=== PATIENT | male | born 1955 | race Caucasian/White ===

== ENCOUNTER → 2018-08-06 18:07 | Outpatient (CLI) | payer MEDICARE, SELFPAY | PROVIDERS: Family Provider Nurse Practitioner; PCP Nurse Practitioner; Referring Provider Nurse Practitioner; Visit Provider Nurse Practitioner | DX: N39.0 Urinary tract infection, site not specified (principal) | CPT/HCPCS: 87077; 87086; 87088; 87186 ==

== ENCOUNTER → 2018-08-25 14:36 | Outpatient (CLI) | payer MEDICARE, SELFPAY ==
--- NOTE | 2018-08-25 14:40 | CT_ITS ---
STUDY: CT CERVICAL SPINE WITHOUT CONTRAST REASON FOR EXAM: Male, 63 years old. Neck pain. RADIATION DOSAGE (If Supplied By Facility): CTDIvol = ( 33.67 ) mGy, DLP = ( 854.02 ) mGycm TECHNIQUE: High resolution transaxial imaging was performed without contrast material. Sagittal and coronal images were reconstructed. Individualized dose optimization techniques were used for this CT. COMPARISON: None FINDINGS: No definite acute fracture/dislocation. The cervical junction is intact. C1-C2 articulation is intact. There is reversal of curvature. There is normal alignment. Facet joints are intact at all levels bilaterally. No jumped facets. Multilevel degenerative disc disease seen. Multilevel loss of disc height. Multilevel posterior marginal osteophytes and disc bulges. Multilevel neural foraminal narrowing. Multilevel compromise of the spinal canal. Findings most pronounced at C4-C5 and C5-C6 and C6-C7. Visualized paraspinal soft tissues and structures are unremarkable. CT/Spine Cervical without Contras IMPRESSION: There is no definite acute fracture/dislocation. Degenerative changes. Electronically Signed: Benitez Dominguez MD at 16:33 EST , Service support ,
== END ==
PROVIDERS: Family Provider Nurse Practitioner; PCP Nurse Practitioner; Referring Provider Anesthesiology Pain Medicine; Visit Provider Anesthesiology Pain Medicine
DX: M54.2 Cervicalgia (principal); M79.601 Pain in right arm
CPT/HCPCS: 72125

== ENCOUNTER → 2018-12-02 09:31 | Outpatient (CLI) | payer MEDICARE, SELFPAY ==
[2018-12-02 09:21] VITALS: BMI 41.2
--- NOTE | 2018-12-02 09:33 | RAD_ITS ---
STUDY: X-RAY - CERVICAL SPINE REASON FOR EXAM: Male, 63 years old. Chronic neck and arm pain. TECHNIQUE: 4 view(s) of the cervical spine were obtained. COMPARISON: CT cervical spine August 25, 2018. FINDINGS: Normal anterior atlantoaxial articulation. Normal odontoid process. Minimal retrolisthesis C4 on C5. No significant motion in flexion or extension. Normal vertebral bodies. Disc space narrowing C4-C5, C5-C6 and C6/C7. Minimal marginal osteophytes at several levels. Normal visualized intervertebral neuroforamina. The soft tissue structures are unremarkable. RAD/Cerv Spine 4 or 5 Views IMPRESSION: Multilevel degenerative changes of the cervical spine stable since the prior exam. No significant motion in flexion or extension. Electronically Signed: Silverio Soriano MD at 7:26 EST , Service support ,
== END ==
PROVIDERS: Family Provider Nurse Practitioner; PCP Nurse Practitioner; Referring Provider Orthopaedic Surgery; Visit Provider Orthopaedic Surgery
DX: M54.12 Radiculopathy, cervical region (principal)
CPT/HCPCS: 72050

== ENCOUNTER → 2018-12-18 21:42 | Outpatient (CLI) | payer MEDICARE, SELFPAY ==
[2018-12-18 17:11] VITALS: BMI 40.3
[2018-12-18 21:49] LABS: Absolute Lymphocyte Count 2.93 X10^3/ul (0.83-4.51); Absolute Neutrophil Count 6.8 X10^3/uL (2.0-7.7); Basophil# 0.03 X10^3/uL; Basophil% 0.3 % (0-1); Eosinophil# 0.47 X10^3/uL; Eosinophils% 4.3 % (0-5); Hemoglobin 14.4 g/dl (13.0-16.5); Lymphocyte # 2.93 X10^3/ul (4.0); Lymphocyte % 26.8 % (19-41); Mean Corpuscular Hgb 30.4 pg (27.0-32.0); Mean Corpuscular Volume 94.9 fL (80-94); Mean Platelet Vol. 12.4 fl (6.2-12.0); Monocyte% 6.4 % (0-10); Neutrophil # 6.75 X10^3/uL (2.7-7.7); Neutrophil % 61.8 % (47-70); Platelet Count 165 K/mm3 (150-450); RBC Distribution Width CV 13.5 % (11.6-14.6); RBC Distribution Width SD 46.7 fl (35.1-43.9); Red Blood Count 4.74 M/mm3 (4.6-6.2); White Blood Count 10.9 K/mm3 (4.4-11.0)
[2018-12-18 21:50] LABS: POSITIVE COUNT NO; POSITIVE DIFFERENTIAL NO; POSITIVE MORPHOLOGY NO
[2018-12-18 22:09] LABS: ALB/GLOB Ratio 1.2 RATIO (0.9-2.4); AST(SGOT) 32 U/L (15-37); Alanine Aminotransfer ALT/SGPT 63 U/L (16-61); Alkaline Phosphatase 51 U/L (45-117); Anion Gap 5 (5-15); BUN 24 mg/dL (7-18); BUN/Creat Ratio 22.4 RATIO (10-20); Calcium,Total 8.8 mg/dL (8.5-10.1); Chloride 104 mmol/L (98-107); Cholesterol 120 mg/dL (200); Creatinine, Serum 1.07 mg/dL (0.70-1.30); EST Glomerular Filtration Rate 74 mL/min (>60); Est Glom Filt Rate - Afr Amer 89 mL/min (>60); Globulin 3.4 g/dL (2.2-4.2); Glucose 81 mg/dL (74-106); High Density Lipoprotein 37 mg/dL; PSA,Total - Annual Screen 1.37 ng/mL (0.00-4.00); Potassium 4.4 mmol/L (3.5-5.1); Protein, Total 7.4 g/dL (6.4-8.2); Sodium Level 137 mmol/L (136-145); Thyroid Stim Hormone (TSH) 2.62 uIU/mL (0.358-3.74); Triglycerides 91 mg/dL; Very Low Density Lipoprotein 18 mg/dL (5-40)
== END ==
PROVIDERS: Referring Provider Nurse Practitioner; Visit Provider Nurse Practitioner
DX: E03.9 Hypothyroidism, unspecified (principal); R33.9 Retention of urine, unspecified; E78.5 Hyperlipidemia, unspecified; I10 Essential (primary) hypertension; H66.93 Otitis media, unspecified, bilateral
CPT/HCPCS: 80053; 80061; 84153; 84443; 85025; G0103

== ENCOUNTER → 2018-12-19 10:52 | Outpatient (CLI) | payer MEDICARE, SELFPAY ==
[2018-12-02 09:21] VITALS: BMI 41.2
[2018-12-18 17:11] VITALS: BMI 40.3
== END ==
PROVIDERS: Family Provider Nurse Practitioner; PCP Nurse Practitioner; Referring Provider Orthopaedic Surgery; Visit Provider Orthopaedic Surgery
DX: M54.12 Radiculopathy, cervical region (principal)

== ENCOUNTER → 2018-12-26 11:14 | Outpatient (CLI) | payer MEDICARE, SELFPAY ==
[2018-12-18 17:11] VITALS: BMI 40.3
[2018-12-26 11:28] VITALS: PULSE 64; RESP 16; TEMP 37.1; O2SAT 95; BMI 36.3
--- NOTE | 2018-12-26 11:45 | RAD_ITS ---
PROCEDURE: LUMBAR MYELOGRAM DATE OF EXAMINATION: December 26, 2018. INDICATION: Male, 63 years old. Cervical radiculopathy. PHYSICIAN: Bryant Fisher M.D. CONSENT: The patient's history and physical findings were reviewed. The lumbar myelogram procedure was discussed with the patient prior to signing a consent. SEDATION: Local anesthesia with 3 mL of 1% lidocaine was used. FLUOROSCOPY TIME (if supplied): (5:32) minutes/seconds Injection Information: 15 cc of Isovue M300 Number of images obtained: 4 TECHNIQUE: Digital fluoroscopy was used to identify a safe approach for the lumbar myelogram. The back was prepped and draped in usual fashion. Local anesthesia was utilized. Under fluoroscopic guidance a 22-gauge spinal needle was inserted into the spinal canal at the L4-5 level. Clear spinal fluid was seen with a sample sent to the laboratory. 15 mL of Isovue 300 M was injected into the spinal canal. The patient was then positioned head down. Contrast was advanced to the region the cervical spine. The skeletal. RAD/Cervical Myelogram IMPRESSION: CT scan will follow. The patient tolerated the procedure well. Electronically Signed: Bryant Fisher, at 12:57 EST , Service support ,
--- NOTE | 2018-12-26 12:18 | CT_ITS ---
STUDY: CT CERVICAL SPINE WITH INTRATHECAL CONTRAST (CERVICAL CT MYELOGRAM) REASON FOR EXAM: Male, 63 years old. Upper extremity radiculopathy. RADIATION DOSAGE (If Supplied By Facility): CTDIvol = ( 29.20 ) mGy, DLP = ( 698.27 ) mGycm TECHNIQUE: Transaxial images were obtained following intrathecal administration of 15 ml of Isovue-M 300 contrast material, performed by Dr. Fisher. Please refer to this physicians technical notes for procedural details. Coronal and sagittal reconstructions were obtained. Individualized dose optimization techniques were used for this CT. Injection Information: 15 cc of Isovue-M 300. COMPARISON: Comparison is made with prior examination dated August 25, 2018. FINDINGS: Normal craniovertebral junction. There are degenerative changes of the anterior atlantoaxial articulation. Normal odontoid process. There is straightening of the normal cervical lordosis. Normal vertebral bodies and posterior osseous elements. C2-3: Moderate degree of disc space narrowing. Anterior spondylosis. No significant stenosis is seen. C3-4: Moderate degree of disc space narrowing. Uncovertebral arthrosis. Facet joint osteoarthritis. No significant central or neural foraminal stenosis is seen. C4-5: Moderate degree of disc space narrowing. Uncovertebral arthrosis. There is evidence of a moderate degree of bilateral neural foraminal stenosis worse on the left side with moderate central canal stenosis worse on the left side. C5-6: Minimal anterior listhesis of C5 on C6. Moderate degree of bilateral neural foraminal stenosis moderate degree of central canal stenosis. C6-7: Moderate degree of disc space narrowing. Uncovertebral arthrosis. Moderate degree of bilateral neural foraminal stenosis. Mild degree of central canal stenosis. CT/Spine Cervical without Contras IMPRESSION: Multilevel central and bilateral neural foraminal stenosis as described. Electronically Signed: Bryant Fisher, at 9:25 EDT , Service support ,
[2018-12-26 13:37] VITALS: BP 125/68; PULSE 68; RESP 16; O2SAT 96
== END ==
PROVIDERS: Family Provider Nurse Practitioner; PCP Nurse Practitioner; Referring Provider Orthopaedic Surgery; Visit Provider Orthopaedic Surgery
DX: M54.12 Radiculopathy, cervical region (principal)
CPT/HCPCS: 62302; 62284; 72125; 72240; Q9965

== ENCOUNTER → 2019-04-01 | Outpatient (CLI) | payer MEDICARE, SELFPAY ==
[2019-04-01 17:04] VITALS: BMI 37.6
== END | disposition home or self-care (01) ==
PROVIDERS: Family Provider Nurse Practitioner; PCP Nurse Practitioner; Referring Provider Nurse Practitioner; Visit Provider Nurse Practitioner
DX: N30.01 Acute cystitis with hematuria (principal)
CPT/HCPCS: 87077; 87086; 87088; 87186

== ENCOUNTER → 2019-07-23 23:31 | Outpatient (CLI) | payer MEDICARE, SELFPAY ==
[2019-07-23 15:34] VITALS: BMI 37.6
== END ==
PROVIDERS: Family Provider Nurse Practitioner; PCP Nurse Practitioner; Referring Provider Nurse Practitioner; Visit Provider Nurse Practitioner
DX: N39.0 Urinary tract infection, site not specified (principal)
CPT/HCPCS: 87077; 87086; 87088; 87186

== ENCOUNTER → 2019-12-16 | Outpatient (CLI) | payer MEDICARE, SELFPAY ==
[2019-12-16 14:57] VITALS: BMI 37.8
[2019-12-16 22:29] LABS: Absolute Lymphocyte Count 1.85 X10^3/uL (0.83-4.51); Absolute Neutrophil Count 5.1 X10^3/uL (2.0-7.7); Basophil# 0.06 X10^3/uL; Basophil% 0.7 % (0-1); Eosinophil# 0.41 X10^3/uL; Eosinophils% 4.9 % (0-5); Hematocrit 44.9 % (40-54); Hemoglobin 14.8 g/dL (13.0-16.5); Lymphocyte # 1.85 X10^3/ul (4.0); Lymphocyte % 22.1 % (19-41); Mean Corpuscular Volume 93.9 fL (80-94); Mean Platelet Vol. 12.6 fl (6.2-12.0); Monocyte# 0.94 X10^3/uL; Monocyte% 11.2 % (0-10); NRBC Flagged by Analyzer 0 % (0-5); Neutrophil # 5.06 X10^3/uL (2.7-7.7); Neutrophil % 60.6 % (47-70); Platelet Count 144 K/mm3 (150-450); RBC Distribution Width CV 12.9 % (11.6-14.6); RBC Distribution Width SD 44.8 fl (35.1-43.9); Red Blood Count 4.78 M/mm3 (4.6-6.2); White Blood Count 8.4 K/mm3 (4.4-11.0)
[2019-12-16 22:42] LABS: AST(SGOT) 24 U/L (15-37); Alanine Aminotransfer ALT/SGPT 49 U/L (16-61); Albumin, Serum 3.8 g/dL (3.2-5.0); Alkaline Phosphatase 54 U/L (45-117); Anion Gap 5 (5-15); BUN 23 mg/dL (7-18); Calcium,Total 9.3 mg/dL (8.5-10.1); Chloride 106 mmol/L (98-107); Cholesterol 139 mg/dL (200); Creatinine, Serum 1.28 mg/dL (0.70-1.30); EST Glomerular Filtration Rate 60 mL/min (>60); Est Glom Filt Rate - Afr Amer 72 mL/min (>60); Globulin 3.7 g/dL (2.2-4.2); Glucose 98 mg/dL (74-106); High Density Lipoprotein 33 mg/dL; PSA,Total - Annual Screen 1.09 ng/mL (0.00-4.00); Potassium 4.2 mmol/L (3.5-5.1); Protein, Total 7.5 g/dL (6.4-8.2); Sodium Level 138 mmol/L (136-145); Thyroid Stim Hormone (TSH) 3.84 uIU/mL (0.358-3.74); Triglycerides 150 mg/dL; Very Low Density Lipoprotein 30 mg/dL (5-40)
== END | disposition home or self-care (01) ==
PROVIDERS: PCP Nurse Practitioner; Referring Provider Nurse Practitioner; Visit Provider Nurse Practitioner
DX: I10 Essential (primary) hypertension (principal); R33.9 Retention of urine, unspecified; E03.9 Hypothyroidism, unspecified; E78.5 Hyperlipidemia, unspecified; Z12.5 Encounter for screening for malignant neoplasm of prostate
CPT/HCPCS: 80053; 80061; 84153; 84443; 85025; G0103

== ENCOUNTER → 2020-02-22 | Outpatient (CLI) | payer MEDICARE, SELFPAY ==
[2020-02-22 16:38] VITALS: BMI 37.8
[2020-02-22 23:02] LABS: Thyroid Stim Hormone (TSH) 3.46 uIU/mL (0.358-3.74)
== END | disposition home or self-care (01) ==
LOC: OLS.AHF 22:12 → LABSPEC 02-23 11:23
PROVIDERS: PCP Nurse Practitioner; Referring Provider Nurse Practitioner; Visit Provider Nurse Practitioner
DX: E03.9 Hypothyroidism, unspecified (principal)
CPT/HCPCS: 84443

== ENCOUNTER → 2020-04-14 | Outpatient (CLI) | payer MEDICARE, SELFPAY ==
[2020-04-14 15:34] VITALS: BMI 37.8
[2020-04-14 20:48] LABS: Thyroid Stim Hormone (TSH) 0.22 uIU/mL (0.358-3.74)
== END | disposition home or self-care (01) ==
PROVIDERS: PCP Nurse Practitioner; Referring Provider Nurse Practitioner; Visit Provider Nurse Practitioner
DX: E03.9 Hypothyroidism, unspecified (principal)
CPT/HCPCS: 84443

== ENCOUNTER → 2020-05-17 | Outpatient (CLI) | payer MEDICARE, SELFPAY ==
[2020-04-14 15:34] VITALS: BMI 37.8
[2020-05-17 22:02] LABS: Thyroid Stim Hormone (TSH) 1.13 uIU/mL (0.358-3.74)
== END | disposition home or self-care (01) ==
PROVIDERS: PCP Nurse Practitioner; Referring Provider Nurse Practitioner; Visit Provider Nurse Practitioner
DX: E03.9 Hypothyroidism, unspecified (principal)
CPT/HCPCS: 84443

== ENCOUNTER → 2020-12-20 | Outpatient (CLI) | payer MEDICARE, SELFPAY ==
[2020-12-20 15:45] VITALS: BMI 38.2
[2020-12-20 21:49] LABS: Absolute Lymphocyte Count 2.22 X10^3/uL (0.83-4.51); Absolute Neutrophil Count 4.9 X10^3/uL (2.0-7.7); Basophil# 0.07 X10^3/uL; Basophil% 0.8 % (0-1); Eosinophil# 0.62 X10^3/uL; Eosinophils% 7.4 % (0-5); Hemoglobin 14.6 g/dL (13.0-16.5); Lymphocyte # 2.22 X10^3/ul (4.0); Lymphocyte % 26.4 % (19-41); Mean Corp Hgb Conc 31.7 g/dL (32-36); Mean Corpuscular Hgb 30.9 pg (27.0-32.0); Mean Corpuscular Volume 97.5 fL (80-94); Mean Platelet Vol. 12.6 fl (6.2-12.0); Monocyte% 7.1 % (0-10); NRBC Flagged by Analyzer 0 % (0-5); Neutrophil # 4.87 X10^3/uL (2.7-7.7); Neutrophil % 57.9 % (47-70); Platelet Count 158 K/mm3 (150-450); RBC Distribution Width CV 13.3 % (11.6-14.6); RBC Distribution Width SD 47.6 fl (35.1-43.9); Red Blood Count 4.72 M/mm3 (4.6-6.2); White Blood Count 8.4 K/mm3 (4.4-11.0)
[2020-12-20 22:03] LABS: ALB/GLOB Ratio 1.1 RATIO (0.9-2.4); AST(SGOT) 23 U/L (15-37); Alanine Aminotransfer ALT/SGPT 46 U/L (16-61); Alkaline Phosphatase 52 U/L (45-117); Anion Gap 4 (5-15); BUN 24 mg/dL (7-18); BUN/Creat Ratio 19.2 RATIO (10-20); Calcium,Total 8.8 mg/dL (8.5-10.1); Chloride 105 mmol/L (98-107); Cholesterol 150 mg/dL (200); Creatinine, Serum 1.25 mg/dL (0.70-1.30); EST Glomerular Filtration Rate 61 mL/min (>60); Est Glom Filt Rate - Afr Amer 74 mL/min (>60); Globulin 3.5 g/dL (2.2-4.2); Glucose 83 mg/dL (74-106); High Density Lipoprotein 35 mg/dL; PSA,Total - Annual Screen 1.44 ng/mL (0.00-4.00); Potassium 4.8 mmol/L (3.5-5.1); Protein, Total 7.5 g/dL (6.4-8.2); Sodium Level 138 mmol/L (136-145); Triglycerides 181 mg/dL; Very Low Density Lipoprotein 36 mg/dL (5-40)
== END | disposition home or self-care (01) ==
PROVIDERS: PCP Nurse Practitioner; Referring Provider Nurse Practitioner; Visit Provider Nurse Practitioner
DX: I10 Essential (primary) hypertension (principal); E03.9 Hypothyroidism, unspecified; R33.9 Retention of urine, unspecified; Z12.5 Encounter for screening for malignant neoplasm of prostate
CPT/HCPCS: 80053; 80061; 84153; 84443; 85025; G0103

== ENCOUNTER 2021-12-18 21:24 | Outpatient (CLI) | payer MEDICARE, SELFPAY ==
[2021-12-18 21:36] LABS: Absolute Lymphocyte Count 2.44 X10^3/uL (0.83-4.51); Absolute Neutrophil Count 5.6 X10^3/uL (2.0-7.7); Basophil# 0.07 X10^3/uL; Basophil% 0.7 % (0-1); Eosinophil# 0.58 X10^3/uL; Eosinophils% 6.2 % (0-5); Hematocrit 45.1 % (40-54); Hemoglobin 14.7 g/dL (13.0-16.5); Lymphocyte # 2.44 X10^3/ul (0.83-4.51); Mean Corp Hgb Conc 32.6 g/dL (32-36); Mean Corpuscular Hgb 31.3 pg (27.0-32.0); Mean Corpuscular Volume 96.2 fL (80-94); Mean Platelet Vol. 12.7 fl (6.2-12.0); Monocyte# 0.67 X10^3/uL; Monocyte% 7.2 % (0-10); NRBC Flagged by Analyzer 0 % (0-5); Neutrophil # 5.58 X10^3/uL (2.7-7.7); Neutrophil % 59.6 % (47-70); Platelet Count 156 K/mm3 (150-450); RBC Distribution Width CV 13.2 % (11.6-14.6); RBC Distribution Width SD 46.7 fl (35.1-43.9); Red Blood Count 4.69 M/mm3 (4.6-6.2); White Blood Count 9.4 K/mm3 (4.4-11.0)
[2021-12-18 22:10] LABS: ALB/GLOB Ratio 1.2 RATIO (0.9-2.4); AST(SGOT) 23 U/L (15-37); Alanine Aminotransfer ALT/SGPT 41 U/L (16-61); Alkaline Phosphatase 50 U/L (45-117); Anion Gap -1 (5-15); BUN 24 mg/dL (7-18); BUN/Creat Ratio 19.8 RATIO (10-20); Calcium,Total 9.3 mg/dL (8.5-10.1); Chloride 107 mmol/L (98-107); Cholesterol 145 mg/dL (200); Creatinine, Serum 1.21 mg/dL (0.70-1.30); EST Glomerular Filtration Rate 64 mL/min (>60); Est Glom Filt Rate - Afr Amer 77 mL/min (>60); Globulin 3.4 g/dL (2.2-4.2); Glucose 90 mg/dL (74-106); High Density Lipoprotein 38 mg/dL; Potassium 4.8 mmol/L (3.5-5.1); Protein, Total 7.4 g/dL (6.4-8.2); Sodium Level 138 mmol/L (136-145); Thyroid Stim Hormone (TSH) 3.58 uIU/mL (0.358-3.74); Triglycerides 139 mg/dL; Very Low Density Lipoprotein 28 mg/dL (5-40)
[2021-12-19 09:53] LABS: PSA,Total - Annual Screen 1.54 ng/mL (0.00-4.00)
== END 2021-12-18 23:59 | disposition home or self-care (01) ==
PROVIDERS: PCP Nurse Practitioner; Visit Provider Nurse Practitioner
DX: I10 Essential (primary) hypertension (principal); E03.9 Hypothyroidism, unspecified; R33.9 Retention of urine, unspecified; Z12.5 Encounter for screening for malignant neoplasm of prostate
CPT/HCPCS: 80053; 80061; 84153; 84443; 85025; 87077; 87086; 87088; 87186; G0103

== ENCOUNTER 2022-01-11 14:17 | Outpatient (CLI) | payer MEDICARE, SELFPAY ==
--- NOTE | 2022-01-11 14:20 | CT_ITS ---
COMPUTED TOMOGRAPHY OF THE RIGHT LOWER EXTREMITY WITH COMPARISON LEFT-SIDED VIEWS OF 1454 HOURS ON 01/11/2022: CLINICAL: 66-year-old male. Contemplation of the total hip arthroplasty. PROCEDURE: Computed tomography of both lower extremities was performed without contrast enhancement and was demonstrated in osseous algorithm in the axial, coronal, and sagittal projections. FINDINGS: Mild demineralization is noted. There is no evidence of fractures or dislocations. No osseous lytic, sclerotic, or mass lesions are evident. There is mild narrowing of both hip joint spaces--slightly more so on the right. The medial right hip joint space measures 0.35 cm in width and is compared to 0.465 cm on the left. Hip joint spaces have a relatively symmetrical with laterally. But, the posterior medial right hip joint space measures 0.2 cm in width compared to 0.64 cm on the left. No evidence of loose osseous bodies within the joint space. There are mild lateral osteophytic degenerative changes of both hip joints. CT/Extremity Lower without Contra IMPRESSION: 1. Mild narrowing of the right hip joint space is compared to the left--please see measurements in the body of the report. 2. Mild osteophytic degenerative changes of both hip joints. 3. No fractures or dislocations. 4. No osseous lytic, sclerotic or mass lesions evident. 5. Mild demineralization. Electronically Signed: Rodger Villalta MD at 0:34 EDT ,
== END 2022-01-11 23:59 | disposition home or self-care (01) ==
LOC: CT 14:18
PROVIDERS: PCP Nurse Practitioner; Referring Provider Orthopaedic Surgery; Visit Provider Orthopaedic Surgery
DX: M16.11 Unilateral primary osteoarthritis, right hip (principal)
CPT/HCPCS: 73700

== ENCOUNTER 2022-01-30 05:15 | Day surgery (SDC) | payer MEDICARE, SELFPAY ==
--- NOTE | 2022-01-19 08:39 | EKG12_ITS ---
Test Reason : PRE OP Blood Pressure : / mmHG Vent. Rate : 065 BPM Atrial Rate : 065 BPM P-R Int : 150 ms QRS Dur : 108 ms QT Int : 398 ms P-R-T Axes : 011 055 080 degrees QTc Int : 413 ms Normal sinus rhythm Normal ECG Confirmed by CHARANJIT CAST, EKATERINA ([id number]), continuity editor ALVIN DELGADO ([id number]) on 01/19/2022 2:22:31 PM Referred By: Ryan Martinez Confirmed By:ADRIANNA DONOHUE MD
[2022-01-19 09:23] LABS: Absolute Lymphocyte Count 2.02 X10^3/uL (0.83-4.51); Absolute Neutrophil Count 4.6 X10^3/uL (2.0-7.7); Basophil# 0.06 X10^3/uL; Basophil% 0.8 % (0-1); Eosinophil# 0.52 X10^3/uL; Eosinophils% 6.7 % (0-5); Hematocrit 44.1 % (40-54); Hemoglobin 14.4 g/dL (13.0-16.5); Lymphocyte # 2.02 X10^3/ul (0.83-4.51); Mean Corp Hgb Conc 32.7 g/dL (32-36); Mean Corpuscular Hgb 30.8 pg (27.0-32.0); Mean Corpuscular Volume 94.2 fL (80-94); Mean Platelet Vol. 11.3 fl (6.2-12.0); Monocyte# 0.54 X10^3/uL; Monocyte% 6.9 % (0-10); NRBC Flagged by Analyzer 0 % (0-5); Neutrophil # 4.58 X10^3/uL (2.7-7.7); Platelet Count 171 K/mm3 (150-450); RBC Distribution Width CV 13.2 % (11.6-14.6); RBC Distribution Width SD 45.5 fl (35.1-43.9); Red Blood Count 4.68 M/mm3 (4.6-6.2); White Blood Count 7.8 K/mm3 (4.4-11.0)
[2022-01-19 09:53] LABS: Prothrombin Time (Protime)PT. 12.9 SECONDS (11.7-14.9)
[2022-01-19 09:54] LABS: Anion Gap 1 (5-15); BUN 21 mg/dL (7-18); Chloride 105 mmol/L (98-107); Creatinine, Serum 1.31 mg/dL (0.70-1.30); EST Glomerular Filtration Rate 58 mL/min (>60); Est Glom Filt Rate - Afr Amer 70 mL/min (>60); Glucose 107 mg/dL (74-106); Partial Thromboplast Time 33.1 Seconds (24.1-36.2); Potassium 4.8 mmol/L (3.5-5.1); Sodium Level 138 mmol/L (136-145)
[2022-01-19 14:53] LABS: Magnesium 2.2 mg/dL (1.6-2.6); Thyroid Stim Hormone (TSH) 5.13 uIU/mL (0.358-3.74)
[2022-01-26 13:31] LABS: Fructosamine 245 umol/L (0-285)
[2022-01-30] VITALS (12 sets, daily range): BP systolic 105–139; BP diastolic 58–74; PULSE 51–69; RESP 16; TEMP 35.9–36.7; O2SAT 97–100; BMI 36.3
[2022-01-30] MEDS: Scopolamine 1mg/72hr Patch 1 PATCH TD (06:07)
[2022-01-30] MEDS: Lactated Ringers 1,000 ML 999 ML IV (06:07)
[2022-01-30] MEDS: Gabapentin 600 MG Tablet PO (06:08)
[2022-01-30] MEDS: Acetaminophen 500 MG Tablet 1000 MG PO (06:08)
[2022-01-30 07:05] LABS: Bedside Glucose 177 mg/dL (74-106)
--- NOTE | 2022-01-30 07:16 | HP.PCM_ITS ---
History and Physical Date of Admission: 01/30/22 Date of Service: 01/03/22 MR#:[id number]:[id number]: MIGUEL ANGEL BLANDRep #:[id number] Provider:Dr. Ryan Martinez, DOAge/Sex: 66/M [facility] [place]Signed Intake Vital Signs 01/03/22 08:08 Height 5 ft 11 in Weight: 264 lb BMI 36.8 Intake Visit Reasons: RIGHT HIP Allergies acetaminophen [From Percocet] Allergy (Severe, Verified 01/03/22 08:09) ITCHY, TINGLY diphenhydramine [From Benadryl] Allergy (Severe, Verified 01/03/22 08:09) HEART RACES oxycodone [From Percocet] Allergy (Severe, Verified 01/03/22 08:09) ITCHY, TINGLY Penicillins Allergy (Severe, Verified 01/03/22 08:09) UNK sulfamethoxazole [From Bactrim] Allergy (Severe, Verified 01/03/22 08:09) UNK trimethoprim [From Bactrim] Allergy (Severe, Verified 01/03/22 08:09) UNK Medications aspirin 81 mg tablet,delayed release 81 mg PO DAILY 08/06/18 [History Confirmed 01/03/22] multivitamin 1 tab PO DAILY 08/06/18 [History Confirmed 01/03/22] ascorbate calcium (vitamin C) 500 mg tablet 500 mg PO DAILY 12/20/20 [History Confirmed 01/03/22] cyanocobalamin (vitamin B-12) 1,000 mcg capsule 1,000 mcg PO DAILY 12/20/20 [History Confirmed 01/03/22] omega-3 fatty acids 1,000 mg capsule 1,000 mg PO DAILY 12/20/20 [History Confirmed 01/03/22] benazepril 10 mg tablet 10 mg PO DAILY #90 tab 12/18/21 [Rx Confirmed 01/03/22] simvastatin 20 mg tablet 20 mg PO QHS #90 tab 12/18/21 [Rx Confirmed 01/03/22] tamsulosin 0.4 mg capsule 0.4 mg PO DAILY #90 cap 12/18/21 [Rx Confirmed 01/03/22] levothyroxine 200 mcg capsule 200 mcg PO 6XW 90 Days #78 cap 12/19/21 [Rx Confirmed 01/03/22] nitrofurantoin 100 mg capsule 100 mg PO BID 01/03/22 [History Confirmed 01/03/22] [facility] Medical History (Updated 01/03/22 @ 09:[address] Ryan Martinez DO) Arc-welders' disease Bladder atony Bladder spasms botox of bladder BPH (benign prostatic hyperplasia) Hypertension INDUSTRIAL ACCIDENT WITH AMPUTATION L FOOT Nocturia Self-catheterizes urinary bladder Surgical History AMPUTATION L FT TOES LASRED PROSTATE Family History Other CVA (cerebral vascular accident) Diabetes Heart disease High cholesterol Hypertension Social History Smoking Status: Never smoker second hand exposure: Yes alcohol intake: never substance use type: does not use HPI RIGHT HIP Details: Parts of this documentation were recorded by a scribe, this documentation accurately reflects the service provided and the decisions made by me, Dr. Ryan Martinez, 01/03/22 0754. MIGUEL ANGEL BLAND is a 66 year old M NEW Pt here today referral from Rowena Robertson for right hip pain. Pt states he has been having pain for 8-10 months. Pt denies any known injury but he had multiple falls in the snow at the beginning of November. Pt states he fell in the snow and states the pain did not get worse after the falls. Pt state a left foot injury that resulted in a transmetatarsal amputation 11 years ago due to a work accident. Pt states most of his pain is in the anterior hip in the groin however he does get a shock feeling and spasm in the area. Pt states he also gets spasms in his low back and buttock area on the right side. Hip range of motion does not increase the pain. Pt states he is unable to sleep on his right side. Pt denies any PT, previous injuries, injections, or surgeries on right hip. Pt states ROM is limited due to the pain. Pt states he has had family member caretaker which helps for a couple of days. Pt states he does have occasional radiating pain down to his knee . Pt denies any back surgeries in the past. Pt states he has low back pain if he stands too long or walks a lot causes pain at lumbosacral junction area. Ortho Exam General General: Yes no acute distress Neurologic: Yes alert and Yes oriented x3 Psychologic: Yes reasonable and appropriate Right Hip Skin: No Ecchymosis, No soft tissue swelling and No Erythema HIP: internal rotation 40 and reproduces intense groin pain, he states this is the pain he is talking about 15 external rotation with groin pain. Negative seated root test intact sensation to light touch throughout right lower extremity 5 out of 5 plantar flexion dorsiflexion ankle 5 out of 5 knee strength and hip flexion strength Supplemental Info 12/22/2021 x-ray right hip on disc from [facility] moderate degenerative changes of the right femoral acetabular joint with some joint space narrowing and acetabular spurring with cystic change 01/03/2022 x-ray lumbar spine there is moderate multilevel lower lumbar facet arthrosis Coding Level of Care Code 37472 Diagnoses Degenerative joint disease of right hip M16.11 Assessment and Plan Assessment and Plan (1) Degenerative joint disease of right hip: Status: Acute Plan - Dr. Ryan Martinez, DO: Miguel Angel has moderate right hip arthritis where I believe most of his pain is coming from. Explained that he does have spondylosis of the facet joints of the lumbar spine and any type of electrical pain is likely originating from his back. Treatment options for the groin pain include OLEGARIO, physical therapy, referral for hip injections, NSAID's, and Tylenol arthritis. Pt wishes to proceed with OLEGARIO. PT educated to stop fish oil 14 days prior and Aspirin 7 days prior to surgery. Risks, benefits and alternatives of surgery reviewed including but not limited to bleeding, infection, nerve (specifically foot drop), artery and/or tissue damage, fracture, VTE, leg length discrepancy, dislocation, need for hip precautions, continued pain especially pain originating from the back and expected post-operative course. Patient counseled on postoperative hip precautions with posterior approach. Pt educated benefits of quitting smoking 6 weeks before and 6 weeks after surgery however he states this is not a possibility for him, he understands increased risk of infection being a smoker and not stopping in the perioperative period . He understands that an infected total hip arthroplasty could be lethal and could require removal of the hip joint to clear any infection. Pt educated on the need to check for UTI prior to surgery due to frequent UTI's. For any dental procedures he will need an antibiotic prior to procedures. Pt aware he will need medical clearance from Dr. Robertson. Patient in agreement of plan. We have a tentative surgery date for January 30, 2022 I will forward a copy of today's note to referring provider Rowena Robertson. Thank you for this consultation Plan Details Other Medications: Discontinued: nitrofurantoin macrocrystal (Macrodantin) must administer with a meal/food Discontinued Reason: By Stop Date 100 mg PO BID 14 days 28 caps 0RF Other Orders: Orders: Lumbar Spine 2 or 3 Views Today M54.10 01/03/22 0949<Electronically signed by Ryan Martinez DO>Date Ryan Martinez DO I have re-examined the patient. There are no clinical changes since date of exam
--- NOTE | 2022-01-30 08:05 | FEM_PTH ---
PATIENT: MIGUEL ANGEL BLAND LOC: U#:[id number] AGE/SX: 66/M ROOM: RE01/30/[address]: Dr. Ryan Martinez DO : 1955 BED: DIS: 01/30/2022 SPEC #: [id number] RECD: 01/30/22 11:07 STATUS: [place] MIN #: [id number] IVANA: 01/30/22 08:[address]: Ryan Martinez DEPT: SURGICAL PATHOLOGY RECD BY: Adenike Bravo ENTERED: 01/30/22 12:29 SP TYPE: FEM HEAD OTHR DR: Rowena Robertson, [employer] ENG[employer] PLANNING OPERATOR-C Tissues: Femoral region, NOS Procedures: Decalcification bone/plaque Surgery Specimen Level IV HEADER OPERATION: ERAS, total hip replacement robotic arm assist PRE-OP DIAGNOSIS: Degenerative joint disease of right hip TISSUE SUBMITTED: Right femoral head and reamings MICROSCOPIC DIAGNOSIS Right femoral head and reamings, total hip replacement/resection: Femoral head with degenerative osteoarthritic changes. Fragments of synovial tissue with reactive changes and bone reamings. DARRICK:dell 02/02/2022 MICROSCOPIC DESCRIPTION Slides are reviewed. GROSS DESCRIPTION Received is one container labeled with the patient's name and designated right femoral head. The specimen consists of a perez femoral head measuring 6 x 5.5 x 5 cm. The articular surface displays prominent osteophyte formation, eburnation and bone erosion. Also present in the specimen container are multiple irregular fragments of blood clots, bone and bone reamings measuring in aggregate 9 x 7 x 1 cm. Clerical Transcriber sections are submitted after decalcification in two cassettes as follows: 1 - bone, 2??reamings. / AM:dell 01/30/2022 TC:[facility]: [id number], [id number]
[2022-01-30] MEDS: dexAMETHasone 10 MG/ML Vial IV (08:55)
--- NOTE | 2022-01-30 11:12 | OP.PCM_ITS ---
Report of Operation Date of Procedure: 01/30/22 Description of Surgical Findings:: Preoperative diagnosis: Right hip DJD Postoperative diagnosis: Same Procedure: CT-guided Makoplasty assisted right total hip arthroplasty Implants: Gillette Accolade II stem size 5, 132 degree neck angle 0 neck length 58 mm Trident II acetabular shell with 40 mm cancellous screw 36 mm ceramic head Anesthesia: Spinal EBL: 175 cc Complications: None Condition: Stable to PACU Obstetrician And Gynaecologist Mal Sim. My physician assistant center manager was a vital part of this case. He was important in appropriate retraction during the case, and protection of soft tissues during procedure. His intimate knowledge of the case and my steps aided in safe and expedient completion of the procedure as well as appropriate position of the extremity during the case. He was also vital in assisting with closure under my direct supervision. Indication for procedure: This is a 66-year-old male who has had long-standing arthrosis of the hip who has failed conservative treatment and wished to undergo total hip arthroplasty. We did discuss operative versus nonoperative intervention including risks of bleeding, infection , nerve artery tissue damage, need for further surgery, fracture, leg length discrepancy dislocation blood clot and need for postoperative physical therapy and postoperative expectations. An informed consent was signed. Procedure: Patient was met in the preoperative holding area once again the operative extremity was identified by both patient and physician and was marked. Patient was met by anesthesia . Anesthesia was started. patient was then positioned in the lateral decubitus position on a well-padded pegboard with an a xillary roll. All bony prominences were checked and padded. The patient was prepped and draped in the usual sterile fashion. A timeout was called to ensure the proper patient procedure and extremity were being contemplated. Anatomic landmarks were palpated and marked for a standard posterior lateral approach. Prior to this the ASIS was palpated and 3 fingerbreadths proximal to this 3 pins were placed at a 45 degree angle into the iliac crest with good purchase, stab incisions were made with a 15 blade into the skin prior to placement. The Makoplasty array was then secured. A 10 blade scalpel was used to make a posterior incision through the skin and subcutaneous tissue. retractors were used and electrocautery was used to maintain meticulous hemostasis and dissect full-thickness flaps until the gluteal fascia was reached. The gluteal fascia was incised in line with the gluteal fibers. The bursal tissue was then freed from the underside and a Charnley retractor was placed. The femoral trochanteric checkpoint was placed and leg length was assessed using the trochanteric checkpoint and an EKG lead that was placed on the knee prior to prepping the leg .the fat pad was then elevated off of the external rotators with electrocautery and the external rotators were dissected off of the greater trochanter including the piriformis and were tagged with #1 Ethibond for later repair. The joint capsule opened with posterior trapdoor technique. The hip was surgically dislocated. The measurement on the preoperative CT from the top of the lesser trochanter to the femoral neck cut was marked Hohmann was placed around the lesser trochanter. A neck cutting guide was used to michaelle the neck with a Bovie and an oscillating saw was used complete the femoral neck cut. The femoral head was then removed and sized. We then turned our attention to the acetabulum. A Bovie was used to make a perforation in the anterior joint capsule and a Benitez retractor was placed this was repeated in the 6 o'clock position and a wide niesha was placed there. With a long handled knife the labral and pulvinar tissue were removed. We then registered the acetabulum with the pointing array and confirmed our landmarks. Once the socket was thoroughly prepared and labral tissue and pulvinar was removed we single reamed with the robotic arm. We then used the robotic arm to position the acetabular implant and impacted it into place under robotic guidance. We then proceeded to place a posterior superior screw by drilling first measuring and inserting the screw. We then inserted a trial liner. And turned our attention back to the femur at this point a femoral elevator was used. As well as a pointed wide Hohmann around the lesser trochanter and a Hohmann to help retract the gluteus medius. A box chisel was used to remove excess lateral neck followed by a canal finder and a lateralizing reamer. This was followed by sequential broaches. Attention was made of the version within the canal based on preoperative templating. Once the final broach was seated we then trialed reduced the hip it was determined that a 132 degree neck angle with a 0 neck length was the appropriate size. We then checked stability with shuck testing as well as flexion and internal rotation. then proceeded with hip extension and checked leg lengths at the knees and heels as well as with the trochanteric checkpoint and knee EKG lead. At this point trials were removed. A liner was inserted to the cup. The femoral stem was inserted. We re-trialed and then proceeded to impact the femoral head onto the Adria taper. We then surgically reduce the hip check stability again and leg lengths and were satisfied. Betadine rinse was allowed to sit for 5 minutes while everyone changed their gloves. Thorough irrigation was performed. Followed by closure of the external rotators with #2 FiberWire followed by closure of gluteal fascia with #1 Ethibond. 0 Vicryl fat stitches and 2-0 Vicryl subcutaneous stitches and kelly in the skin. A pulls were placed in the pin sites over the iliac crest with Xeroform 4 x 4 and OpSite. dressing was applied to incisional area with Mepilex Ag and an abduction pillow was placed. Patient tolerated the procedure well there was no intraoperative complications all counts were correct and the patient was brought back to the PACU in stable condition
--- NOTE | 2022-01-30 11:14 | EX.PCM.DISCH ---
Discharge Instructions Activity Additional Activity Instructions:: Do not shower 72hrs. Begin daily showering warm water antibacterial soap postop day #3( 72hrs Post-operatively) and then daily. Leave the dressing on for 72 hours postoperatively then may remove prior to first shower and change dressing daily after this until no drainage for 2 consecutive days then may leave open to air. Follow hip precautions that were reviewed in hospital. Wear compression stockings, may remove at night. Start physical therapy as directed in hospital. Follow prescriptions instructions do not take any other pain medication or differ dosing without consulting your physician. Do not take oral NSAIDs until blood thinner has been completed , then may begin the day after completion if needed . Call Dr. Martinez's office with any concerns. Dressing / Incision Call your doctor if you observe: Shortness of breath and Chest pain Follow Up Care Please Follow Up With: Ryan Martinez DO When: 2 weeks Test Results: Test results from this visit will be discussed in further detail at your follow-up appointment, if applicable. Discharge Plan Admission Attending Provider: Ryan Martinez Primary Care Provider: Rowena Robertson NP Discharge Orders/Prescriptions Prescriptions: New Eliquis 2.5 mg tablet 2.5 mg PO BID Qty: 42 RF: 0 oxycodone 5 mg tablet 5 mg PO Q4H PRN (Reason: pain) 7 Days Qty: 60 RF: 0 clindamycin HCl 300 mg capsule 600 mg PO Q8H Qty: 4 RF: 0 Continued multivitamin [Daily Multi-Vitamin] tablet 1 tab PO DAILY RF: 0 cyanocobalamin (vitamin B-12) 1,000 mcg capsule 1,000 mcg PO DAILY RF: 0 ascorbate calcium (vitamin C) 500 mg tablet 500 mg PO DAILY RF: 0 omega-3 fatty acids [Fish Oil Concentrate] 1,000 mg capsule 1,000 mg PO DAILY RF: 0 tamsulosin 0.4 mg capsule 0.4 mg PO QHS RF: 0 simvastatin 20 mg tablet 20 mg PO QHS RF: 0 benazepril 10 mg tablet 10 mg PO DAILY RF: 0 levothyroxine 200 mcg capsule 200 mcg PO MOTUWETHFRSA RF: 0 Discontinued aspirin [Adult Low Dose Aspirin] 81 mg tablet,delayed release (DR/EC) 81 mg PO QHS RF: 0 Referrals / Follow Up: Rowena Robertson NP, [facility] [Primary Care Provider] - Disposition Disposition (needs filled in before D/C Order can be placed): Home, Self Care
--- NOTE | 2022-01-30 11:20 | RAD_ITS ---
STUDY: X-RAY - PELVIS AND RIGHT HIP REASON FOR EXAM: Male, 66 years old. Postoperative evaluation after right total hip arthroplasty. TECHNIQUE: 3 views of the pelvis and hip. COMPARISON: None. FINDINGS: There is a total hip arthroplasty in anatomic alignment with expected post-operative findings. There are no complications noted. RAD/Hip Min 2 Views (Portable) IMPRESSION: Placement of total hip arthroplasty in anatomic alignment without complications. Electronically Signed: Saqib Bingham MD at 12:36 EDT ,
== END 2022-01-30 23:59 | disposition home or self-care (01) ==
PROVIDERS: Anesthesiology; PCP Nurse Practitioner; Referring Provider Orthopaedic Surgery; Visit Provider Orthopaedic Surgery
PROC: 8E0Y0CZ Robotic Assisted Procedure of Lower Extremity, Open Approach (ICD-10-PCS; CPT 27130; principal; 2022-01-30 07:35)
DX: M16.11 Unilateral primary osteoarthritis, right hip (principal); J63.4 Siderosis; N40.0 Benign prostatic hyperplasia without lower urinary tract symptoms; I10 Essential (primary) hypertension; Z79.899 Other long term (current) drug therapy; Z79.82 Long term (current) use of aspirin; Z87.440 Personal history of urinary (tract) infections; E03.9 Hypothyroidism, unspecified; E78.5 Hyperlipidemia, unspecified; F41.9 Anxiety disorder, unspecified; G25.81 Restless legs syndrome
CPT/HCPCS: 27130; 01202; S2900; 73502; 80048; 82962; 82985; 83735; 84443; 85025; 85610; 85730; 86850; 86900; 86901; 87081; 88305; 88307; 88311; 93005; 97162; C1776; J7040; J7120; J2405

== ENCOUNTER 2022-03-08 09:30 | Outpatient (RCR) | payer MEDICARE, SELFPAY ==
--- NOTE | 2022-01-15 10:50 | HP.PTEVAL_ITS ---
Patient's Visit Information MIGUEL ANGEL BLAND is a 66 year old M referred to Physical Therapy by Dr. Ryan Martinez DO with a diagnosis of . Date of Evaluation: 01/15/22 Physical Therapist: Katie Rowland DPT - Visit Plan Frequency: 1x/Week Duration: 1 Week Plan: Prehab for THR - Subjective Right Hip Replacement scheduled for January 30, [address] Alcala. He was slowing down- lost his toes on the left foot- his gait had changed- can't colby- hard to get around on uneven ground. Can't sleep on his right side, stand for long periods of time. 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 Had x-rays taken- CT Scan- according to x-rays OA and bone spurs. Low back has OA as well. Lives alone in a 2 bedroom duplex- 3 steps to enter with no HR. 1st floor set up with laundry in the basement. He has two daughters and a girlfriend that can help. Fully I prior to surgery including driving. Plan is to get back to all normal ADL's and into the amanda to [place]. Pain at its worst: 7/10 Best: 0/10 Eases: sitting on the floor with his left knee bent and his right leg out- he is able to get up/down indep with bilateral UE A. Hard to tie his shoes. Sleep: hard to get comfortable but once he is asleep he sleeps well. The pain is in the joint- leg kicks out and jolts- no pain that radiates to the toes. No N/T in the toes. PMHX/Meds: no change since ortho - Objective Posture: FH, RS can correct but does not maintain. Gait: antalgic- decreased stance on the left LE with poor angella/toe pattern with no AD. Stairs: asc/desc 8 recip with bilateral HR. ROM: WFL with reports of pain in the hip with end range. Strength: Core: fair Hip: flexion: 20 extn: 30, Abd/Add: 4+/5, Knee: 5/5, Ankle: 5/5. Sensation: WFL. Flex: HS: severe, Gastroc: severe. Transfers : sit to stand without UE A but does use momentum - Balance/Special Test Scores Lower Extremity Functional Score: 33 TUG Test Time Seconds: 14 - Goals Goal 1:: Patient will be I with HEP and progression Goal Time Frame: 1 Week - Rehabilitation Potential Physical Therapy Diagnosis: Patient presents with hypomobility prior to THR- he has decreased pain free ROM, LE and core strength/stabilization, flexibility and muscular endurance leading to abnormal gait and increased pain with ADL's. Rehabilitation Potential: Good - Anticipated Interventions Patient/Client Instruction: Educate patient on: Benefits of Fitness Program Therapeutic Exercise to Include: Strength training, Endurance training, Balance training, Coordination, Agility training, Body mechanics, Postural training, Flexibilty training, Gait and locomotor training, Neuromotor development, Dynamic Lumbar Stabilization, Scapular Strength/Stabilization Thank you for the opportunity to evaluate your patient. For Medicare and Medicare HMO plans, please review the plan of care and approve it. It will need to be FAXED BACK to us at [phone] for Medicare purposes. For Medicare only, by signing this I certify the plan of care. Please let me know if there are questions or concerns regarding this plan of care. Physician Signature: Date:
--- NOTE | 2022-02-08 12:18 | HP.PTREVAL ---
Dr. Ryan Martinez, DO, It has been my pleasure to treat MIGUEL ANGEL BLAND over the last 2 visits for R TKA. Please see the progress note below for an update on the physical therapy plan of care! Subjective: Pt. is here today for his re assessment after having a R OLEGARIO on 01/30/22. He reports overall doing better, but is still having some pain after moving around. He is walking with a FWW at this point in time. He denies N/T in either LE. Pt. is to have his kelly removed next week. Pt. has done some of his exercises, but not too much. he is walking a few times in his home a day. He is taking pain medication as prescribed. Objective/Function: GAIT: Pt. ambulated with FWW with increased flexion, increased WBing on FWW. He has overall decreased step length bilaterally. Increased pain with R stance phase. TUG 67.3sec. with FWW. ROM: R hip: flexion 85deg, abd 45deg, ext 0deg. tightness noted in B HS. MMT: RLE: ankle 5/5 throughout; knee: ext 4+/5, flexion 4+/5; hip: flexion 3-/5, abd 3-/5, ext 3-/5. Plan Plan: pt. to be seen x2 per week for 4 weeks with focus on progression gait and of functional mobility. Ice as need for pain control. Balance/Gait/Functional tests - Balance/Special Test Scores Lower Extremity Functional Score: 33 TUG Test Time Seconds: 14 Tug Test: <20 sec.=mostly independent Goals Goal 1:: Patient will be I with HEP and progression Goal Time Frame: 4-6 Weeks Goal Progress: Progressing Goal 2:: LTG: Pt. to be able to complete TUG with out AD less than 10 seconds. Goal Time Frame: 4-6 Weeks Goal Progress: Progressing Goal 3:: LTG: Pt. to have increased RLE strength symmetrical to L side. Goal Time Frame: 4-6 Weeks Goal Progress: Progressing Goal 4:: STG: pt. to sleep throughout the night without increase in symptoms of R hip. Goal Time Frame: 2-4 Weeks Goal Progress: Progressing Goal 5:: LTG: pt. to negotiate 1 flight of stairs with reciprocal pattern with 1 HR without LOB or increase in symptoms. Goal Time Frame: 4-6 Weeks Goal Progress: Progressing Goal 6:: LTG: pt. to be able to walk without increase in symptoms with normal gait pattern without use of AD. Goal Time Frame: 4-6 Weeks Goal Progress: Progressing Anticipated Interventions Patient/Client Instruction: Educate patient on: Benefits of Fitness Program Therapeutic Exercise to Include: Strength training, Endurance training, Balance training, Coordination, Agility training, Body mechanics, Postural training, Flexibilty training, Gait and locomotor training, Neuromotor development, Dynamic Lumbar Stabilization, Scapular Strength/Stabilization For the Purpose of:: To decrease pain, To decrease swelling/inflammation, To increase ROM, To improve nutrient delivery to tissue, To increase oxygenation perfusion, To improve muscle performance and motor function, To improve ability to perform ADL's, To increase tolerance to activity/condition/position, To improve performance and independence with ADL's, To improve gait and locomotor functions, To improve health of tissue, To increase flexibility/ROM, To improve endurance Cryotherapy (ice pack, ice massage): Yes For the Purpose of:: To decrease pain, To decrease swelling/inflammation, To increase ROM Please do not hesitate to contact me at [phone] by phone or if you have questions or concerns regarding this new plan of care! Sincerely, Jorge A Chi DPT
--- NOTE | 2022-03-08 10:09 | HP.PTREVAL ---
Dr. Ryan Martinez, DO, It has been my pleasure to treat MIGUEL ANGEL BLAND over the last 10 visits for R OLEGARIO - 01/30/22. Please see the progress note below for an update on the physical therapy plan of care! Subjective: Pt. to RTD on Saturday. Pt. reports overall doing well. He reports no pain with walking, standing or ADLs. He is eager to get back to driving ( I deferred to physician in this capacity). He is also hopeful to get back to going to the [employer] soon (recreational activity). Pt. reports being 75-80% better overall. Objective/Function: MMT: RLE: knee ext: 41.1#, flexion 31.4#; hip: flexion 21.3#, abd 18.1#, ext 12.4#. LLE: knee: ext 44.1#, flexion 32.7#; hip: flexion 27#, abd 24#, ext 16.1#. GAIT: Pt. ambulates pretty well. He has slight increase in lateral hip sway during R stance phase, but minimal. Very similar pattern with and without use of cane. He is using cane for outside ambulation and No AD in home. STAIRS: Pt. able to negotiate with reciprocal pattern with use of 1 HR. He does step to pattern at home with significant other as there is no HR on his porch. He did step to pattern with cane and no HR this date. TU.2sec without AD. Plan Plan: Pt. is to follow up with physician next week. Overall he is doing very well. I would like him to continue to increase in walking routine, with progression from cane as he feels comfortable. I will keep his case open just in case physician would like him to continue, otherwise I will DC. Pt. to follow up with PT after consulting with physician. Balance/Gait/Functional tests - Balance/Special Test Scores Lower Extremity Functional Score: 56 TUG Test Time Seconds: 10.2 Tug Test: <20 sec.=mostly independent Goals Goal 1:: Patient will be I with HEP and progression Goal Time Frame: 4-6 Weeks Goal Progress: Goal Met Goal 2:: LTG: Pt. to be able to complete TUG with out AD less than 10 seconds. Goal Time Frame: 4-6 Weeks Goal Progress: Progressing Goal 3:: LTG: Pt. to have increased RLE strength symmetrical to L side. Goal Time Frame: 4-6 Weeks Goal Progress: Goal Met Goal 4:: STG: pt. to sleep throughout the night without increase in symptoms of R hip. Goal Time Frame: 2-4 Weeks Goal Progress: Goal Met Goal 5:: LTG: pt. to negotiate 1 flight of stairs with reciprocal pattern with 1 HR without LOB or increase in symptoms. Goal Time Frame: 4-6 Weeks Goal Progress: Goal Met Goal 6:: LTG: pt. to be able to walk without increase in symptoms with normal gait pattern without use of AD. Goal Time Frame: 4-6 Weeks Goal Progress: Goal Met Anticipated Interventions Patient/Client Instruction: Educate patient on: Benefits of Fitness Program Therapeutic Exercise to Include: Strength training, Endurance training, Balance training, Coordination, Agility training, Body mechanics, Postural training, Flexibilty training, Gait and locomotor training, Neuromotor development, Dynamic Lumbar Stabilization, Scapular Strength/Stabilization For the Purpose of:: To decrease pain, To decrease swelling/inflammation, To increase ROM, To improve nutrient delivery to tissue, To increase oxygenation perfusion, To improve muscle performance and motor function, To improve ability to perform ADL's, To increase tolerance to activity/condition/position, To improve performance and independence with ADL's, To improve gait and locomotor functions, To improve health of tissue, To increase flexibility/ROM, To improve endurance Cryotherapy (ice pack, ice massage): Yes For the Purpose of:: To decrease pain, To decrease swelling/inflammation, To increase ROM Please do not hesitate to contact me at [phone] by phone or if you have questions or concerns regarding this new plan of care! Sincerely, Jogre A Chi DPT
== END 2022-03-08 19:00 | disposition home or self-care (01) ==
LOC: PT 09:30
PROVIDERS: PCP Nurse Practitioner; Referring Provider Orthopaedic Surgery; Visit Provider Orthopaedic Surgery
DX: Z47.1 Aftercare following joint replacement surgery (principal); Z96.642 Presence of left artificial hip joint
CPT/HCPCS: 97110; 97162; 97164

== ENCOUNTER → 2022-04-30 | Outpatient (CLI) | payer MEDICARE, SELFPAY | END | disposition home or self-care (01) | PROVIDERS: PCP Nurse Practitioner; Visit Provider Nurse Practitioner | DX: R33.9 Retention of urine, unspecified (principal) | CPT/HCPCS: 87077; 87086; 87088; 87186 ==

== ENCOUNTER → 2022-12-11 | Outpatient (CLI) | payer MEDICARE, SELFPAY ==
[2022-12-11 23:03] LABS: Absolute Neutrophil Count 5.1 X10^3/uL (2.0-7.7); Basophil# 0.07 X10^3/uL; Basophil% 0.8 % (0-1); Eosinophil# 0.64 X10^3/uL; Eosinophils% 7.5 % (0-5); Hematocrit 46.2 % (40-54); Lymphocyte % 24.5 % (19-41); Mean Corp Hgb Conc 32.5 g/dL (32-36); Mean Corpuscular Hgb 31.2 pg (27.0-32.0); Mean Platelet Vol. 12.5 fl (6.2-12.0); Monocyte# 0.59 X10^3/uL; Monocyte% 6.9 % (0-10); NRBC Flagged by Analyzer 0 % (0-5); Neutrophil # 5.14 X10^3/uL (2.7-7.7); Neutrophil % 59.9 % (47-70); Platelet Count 141 K/mm3 (150-450); RBC Distribution Width CV 13.1 % (11.6-14.6); RBC Distribution Width SD 46.6 fl (35.1-43.9); Red Blood Count 4.81 M/mm3 (4.6-6.2); White Blood Count 8.6 K/mm3 (4.4-11.0)
[2022-12-11 23:28] LABS: ALB/GLOB Ratio 1.1 RATIO (0.9-2.4); AST(SGOT) 26 U/L (15-37); Alanine Aminotransfer ALT/SGPT 42 U/L (16-61); Alkaline Phosphatase 55 U/L (45-117); Anion Gap 5 (5-15); BUN 21 mg/dL (7-18); BUN/Creat Ratio 17.1 RATIO (10-20); Calcium,Total 9.2 mg/dL (8.5-10.1); Chloride 104 mmol/L (98-107); Cholesterol 144 mg/dL (200); Creatinine, Serum 1.23 mg/dL (0.70-1.30); EST Glomerular Filtration Rate 62 mL/min (>60); Est Glom Filt Rate - Afr Amer 75 mL/min (>60); Globulin 3.5 g/dL (2.2-4.2); Glucose 88 mg/dL (74-106); High Density Lipoprotein 40 mg/dL; PSA,Total- Diagnostic 1.63 ng/mL (0.0-4.0); Potassium 4.7 mmol/L (3.5-5.1); Protein, Total 7.5 g/dL (6.4-8.2); Sodium Level 138 mmol/L (136-145); Triglycerides 154 mg/dL; Very Low Density Lipoprotein 31 mg/dL (5-40)
== END | disposition home or self-care (01) ==
PROVIDERS: PCP Nurse Practitioner; Visit Provider Nurse Practitioner
DX: R33.9 Retention of urine, unspecified (principal); R32 Unspecified urinary incontinence; I10 Essential (primary) hypertension; E78.5 Hyperlipidemia, unspecified; E03.9 Hypothyroidism, unspecified; J01.01 Acute recurrent maxillary sinusitis
CPT/HCPCS: 80053; 80061; 84153; 84443; 85025; 87077; 87086; 87088; 87186

== ENCOUNTER → 2023-04-03 | Outpatient (CLI) | payer MEDICARE, SELFPAY | END | disposition home or self-care (01) | PROVIDERS: PCP Nurse Practitioner; Visit Provider Nurse Practitioner | DX: R33.9 Retention of urine, unspecified (principal) | CPT/HCPCS: 87086; 87088; 87186 ==

== ENCOUNTER → 2023-06-20 | Outpatient (CLI) | payer MEDICARE, SELFPAY | END | disposition home or self-care (01) | PROVIDERS: PCP Nurse Practitioner; Visit Provider Nurse Practitioner | DX: R33.9 Retention of urine, unspecified (principal) | CPT/HCPCS: 87077; 87086; 87088; 87186 ==

== ENCOUNTER → 2023-09-10 | Outpatient (CLI) | payer MEDICARE, SELFPAY | END | disposition home or self-care (01) | PROVIDERS: PCP Nurse Practitioner; Visit Provider Nurse Practitioner | DX: N30.00 Acute cystitis without hematuria (principal) | CPT/HCPCS: 87086; 87088 ==

== ENCOUNTER → 2024-01-06 | Outpatient (CLI) | payer MEDICARE, SELFPAY ==
[2024-01-06 22:39] LABS: Absolute Lymphocyte Count 1.97 X10^3/uL (0.83-4.51); Absolute Neutrophil Count 5.1 X10^3/uL (2.0-7.7); Basophil# 0.05 X10^3/uL; Basophil% 0.6 % (0-1); Eosinophils% 4.9 % (0-5); Hematocrit 47.5 % (40-54); Hemoglobin 15.5 g/dL (13.0-16.5); Lymphocyte # 1.97 X10^3/ul (0.83-4.51); Lymphocyte % 24.1 % (19-41); Mean Corp Hgb Conc 32.6 g/dL (32-36); Mean Corpuscular Hgb 30.9 pg (27.0-32.0); Mean Corpuscular Volume 94.8 fL (80-94); Mean Platelet Vol. 12.6 fl (6.2-12.0); Monocyte# 0.64 X10^3/uL; Monocyte% 7.8 % (0-10); NRBC Flagged by Analyzer 0 % (0-5); Neutrophil # 5.06 X10^3/uL (2.7-7.7); Neutrophil % 62.1 % (47-70); Platelet Count 147 K/mm3 (150-450); RBC Distribution Width CV 13.1 % (11.6-14.6); RBC Distribution Width SD 45.7 fl (35.1-43.9); Red Blood Count 5.01 M/mm3 (4.6-6.2); White Blood Count 8.2 K/mm3 (4.4-11.0)
[2024-01-06 23:04] LABS: ALB/GLOB Ratio 1.1 RATIO (0.9-2.4); AST(SGOT) 27 U/L (15-37); Alanine Aminotransfer ALT/SGPT 42 U/L (16-61); Alkaline Phosphatase 54 U/L (45-117); Anion Gap 6 (5-15); BUN 25 mg/dL (7-18); BUN/Creat Ratio 22.3 RATIO (10-20); Calcium,Total 9.5 mg/dL (8.5-10.1); Chloride 103 mmol/L (98-107); Cholesterol 145 mg/dL (200); Creatinine, Serum 1.12 mg/dL (0.70-1.30); EST Glomerular Filtration Rate 69 mL/min (>60); Est Glom Filt Rate - Afr Amer 84 mL/min (>60); Globulin 3.6 g/dL (2.2-4.2); Glucose 98 mg/dL (74-106); High Density Lipoprotein 39 mg/dL; Potassium 4.4 mmol/L (3.5-5.1); Protein, Total 7.6 g/dL (6.4-8.2); Sodium Level 138 mmol/L (136-145); Thyroid Stim Hormone (TSH) 4.28 uIU/mL (0.358-3.74); Triglycerides 182 mg/dL; Very Low Density Lipoprotein 36 mg/dL (5-40)
== END | disposition home or self-care (01) ==
PROVIDERS: PCP Nurse Practitioner; Visit Provider Nurse Practitioner
DX: N40.0 Benign prostatic hyperplasia without lower urinary tract symptoms (principal); I10 Essential (primary) hypertension; E03.9 Hypothyroidism, unspecified; E78.5 Hyperlipidemia, unspecified; R33.9 Retention of urine, unspecified; R73.9 Hyperglycemia, unspecified
CPT/HCPCS: 80053; 80061; 83036; 84443; 85025

== ENCOUNTER → 2024-07-24 | Outpatient (CLI) | payer MEDICARE, SELFPAY | END | disposition home or self-care (01) | LOC: LABSPEC 20:28 | PROVIDERS: PCP Nurse Practitioner; Referring Provider Nurse Practitioner; Visit Provider Nurse Practitioner | DX: N39.0 Urinary tract infection, site not specified (principal) | CPT/HCPCS: 87086; 87088 ==

== ENCOUNTER → 2024-12-28 | Outpatient (CLI) | payer MEDICARE, SELFPAY ==
[2024-12-28 23:16] LABS: Absolute Lymphocyte Count 2.09 X10^3/uL (0.83-4.51); Absolute Neutrophil Count 3.8 X10^3/uL (2.0-7.7); Basophil# 0.05 X10^3/uL; Basophil% 0.7 % (0-1); Eosinophil# 0.54 X10^3/uL; Eosinophils% 7.5 % (0-5); Hematocrit 43.1 % (40-54); Hemoglobin 14.3 g/dL (13.0-16.5); Lymphocyte # 2.09 X10^3/ul (0.83-4.51); Lymphocyte % 28.9 % (19-41); Mean Corp Hgb Conc 33.2 g/dL (32-36); Mean Corpuscular Volume 93.5 fL (80-94); Mean Platelet Vol. 12.3 fl (6.2-12.0); Monocyte# 0.73 X10^3/uL; Monocyte% 10.1 % (0-10); NRBC Flagged by Analyzer 0 % (0-5); Neutrophil # 3.76 X10^3/uL (2.7-7.7); Platelet Count 154 K/mm3 (150-450); RBC Distribution Width CV 13.3 % (11.6-14.6); RBC Distribution Width SD 45.6 fl (35.1-43.9); Red Blood Count 4.61 M/mm3 (4.6-6.2); White Blood Count 7.2 K/mm3 (4.4-11.0)
[2024-12-29 00:28] LABS: ALB/GLOB Ratio 1.6 RATIO (0.9-2.4); AST(SGOT) 26 U/L (<=37); Alanine Aminotransfer ALT/SGPT 32 U/L (<=46); Albumin, Serum 4.3 g/dL (3.4-4.8); Alkaline Phosphatase 51 U/L (40-129); Anion Gap 12 (5-15); BUN 23 mg/dL (4-19); BUN/Creat Ratio 21.8 RATIO (10-20); Carbon Dioxide 21.1 mmol/L (21.0-32.0); Chloride 103 mmol/L (98-108); Cholesterol 131 mg/dL (<=200); Creatinine, Serum 1.04 mg/dL (0.70-1.20); EST Glomerular Filtration Rate 77 (>60); Globulin 2.6 g/dL (2.2-4.2); Glucose 95 mg/dL (70-99); High Density Lipoprotein 39 mg/dL; Low Density Lipoprotein Calc. 72 mg/dL; PSA,Total - Annual Screen 1.35 ng/mL (0.02-4.00); Potassium 4.4 mmol/L (3.3-5.1); Protein, Total 6.9 g/dL (5.9-8.4); Sodium Level 137 mmol/L (133-145); Thyroid Stim Hormone (TSH) 0.294 uIU/mL (0.300-4.200); Total Bilirubin < 0.15 mg/dL (0.00-1.30); Triglycerides 99 mg/dL; Very Low Density Lipoprotein 20 mg/dL (5-40); cholesterol:hdl ratio screen 3.37
== END | disposition home or self-care (01) ==
PROVIDERS: PCP Nurse Practitioner; Referring Provider Nurse Practitioner; Visit Provider Nurse Practitioner
DX: I10 Essential (primary) hypertension (principal); N40.0 Benign prostatic hyperplasia without lower urinary tract symptoms; E78.5 Hyperlipidemia, unspecified; E03.9 Hypothyroidism, unspecified; Z12.5 Encounter for screening for malignant neoplasm of prostate
CPT/HCPCS: 80053; 80061; 84153; 84443; 85025; G0103

== ENCOUNTER → 2025-10-19 | Outpatient (CLI) | payer MEDICARE, SELFPAY ==
--- OUTSIDE RECORDS SUMMARY | 2025-10-19 21:21 | XMS RPT_ITS | CCD ---
Author Organization [facility] [place] Care Team Providers Care Trench Digger Name Role Phone Chantel GENETIC ENGINEER, GENETIC ENGINEER-C Manny Primary Care Provider Chantel GENETIC ENGINEER, GENETIC ENGINEER-C Manny Referring Provider Dr. Ryan Martinez Attending Provider Dr. Doron Weinstein Attending Provider [phone] Ryan Martinez Referring Provider [phone] Dr. Ryan Martinez Other Provider [phone] Roosevelt Stoll Attending Provider Dr. Ryan Martinez Referring Provider CAT Lennon Attending Provider Chantel CAMPOS, GENETIC ENGINEER-C Manny Primary Care Provider Chantel GENETIC ENGINEER, GENETIC ENGINEER-C Manny Referring Provider CAT Lennon Attending Provider [phone] Doron Weinstein Attending Provider [phone] Ryan Martinez Attending Provider Chantel PROJECT LANDSCAPE ARCHITECT.DRUM SEALER, Manny L Primary Care Provide r Chantel PROJECT LANDSCAPE ARCHITECT.DRUM SEALER, Manny L Primary Care Provide r DWIGHT GOLDENA Alan Primary Care Unavailable CODY HANNA Referring Unajanis GOLDEN MANNY L Primary Care Unavailable CODY HANNA Referring [place] labbo GOLDEN MANNY L Primary Care Unavailable CODY HANNA Referring Unavai lable CHANTEL, MANNY L Primary Care Unavailable Golden GENETIC ENGINEER, Manny Referring Unavailable Golden GENETIC ENGINEER, Manny Primary Care Unavailable Golden GENETIC ENGINEER, Manny Attending Unavailable Golden GENETIC ENGINEER, Manny Referring Unavailable Golden GENETIC ENGINEER, Manny Primary Care Unavailable Golden GENETIC ENGINEER, Manny Attending Unavailable Golden GENETIC ENGINEER-C, Manny Primary Care Provider Golden GENETIC ENGINEER-C, Manny Attending Provider Golden GENETIC ENGINEER-C, Manny Referring Provider [phone] Allergies Allergy Classification Reported Allergen(s) Allergy Type Date of Onset Reaction(s) Facility (8 sources) Acetaminophen Drug Allergy 01-04-20 22 ITCHY, TINGLY [facility] (8 sources) Ciprofloxacin Drug Allergy 01-17-20 22 UNABLE TO TAKE IV FORM CAUSES HOTNESS [facility] (11 sources) diphenhydrAMINE; Translations: [DIPHENHYDRAMINE] Drug Allergy 08-06-20 18 Mental Status Change, Other: See Comments [facility] (8 sources) HYDROcodone Drug Allergy 01-17-20 22 Itching [facility] (8 sources) oxyCODONE Drug Allergy 01-04-20 22 ITCHY, TINGLY [facility] (9 sources) Penicillins; Translations: [Penicillins] Allergy to substance 01-05-20 22 hives [facility] (8 sources) Sulfamethoxazole Drug Allergy 01-05-20 22 swelling [facility] (11 sources) Trimethoprim; Translations: [TRIMETHOPRIM] Drug Allergy 08-06-20 18 Unknown [facility] (3 sources) Nitrofurantoin Drug Allergy 04-15-20 23 SOB [facility] (3 sources) Acetaminophen / HYDROcodone; Translations: [HYDROCODONE-ACETAMI NOPHEN] Drug Allergy 12-02-19 Unknown [facility] (3 sources) Acetaminophen / oxyCODONE; Translations: [OXYCODONE-ACETAMINO PHEN] Drug Allergy 06-24-20 Unknown [facility] (3 sources) Codeine; Translations: [CODEINE] Drug Allergy 03-22-20 Unknown [facility] (3 sources) Penicillin G; Translations: [PENICILLIN G] Drug Allergy 06-24-20 Unknown [facility] (3 sources) Sulfonamides (Antibiotic); Translations: [SULFA (SULFONAMIDE ANTIBIOTICS)] Drug Allergy 03-20-20 11 Unknown [facility] (1 source) Acetaminophen Drug Allergy 01-31-20 [facility] (1 source) Ciprofloxacin Drug Allergy 01-31-20 [facility] (1 source) diphenhydrAMINE Drug Allergy 01-31-20 [facility] (1 source) HYDROcodone Drug Allergy 01-31-20 [facility] (1 source) Nitrofurantoin Drug Allergy 04-15-20 [facility] (1 source) oxyCODONE Drug Allergy 01-31-20 [facility] (1 source) Sulfamethoxazole Drug Allergy 01-31-20 [facility] (1 source) Trimethoprim Drug Allergy 01-31-20 [facility] Medications Current Medications Medication Drug Class(es) Dates Sig (Normalized) Sig (Original) [id number] 200 actuat albuterol 0.09 mg/actuat metered dose inhaler (18 sources) beta2-Adrenergic Agonist Start: 11-30-2019 VENTOLIN HFA 90 mcg/actuation inhaler Start: 11-09-2019 End: 12-20-2020 Albuterol Sulfate (Ventolin Hfa) 90 mcg/actuation HFA aerosol inhaler Discontinued 2 NMA INHALATION Q4H as needed for shortness of breath November 09, 2019 7:56pm December 20, 2020 4:50pm Start: 11-09-2019 End: 12-20-2020 take 1 puff(s) by inhalation every four hours Albuterol Sulfate (Ventolin Hfa) 90 mcg/actuation HFA aerosol inhaler Discontinued 2 PUFF INHALATION Q4H November 09, 2019 7:56pm December 20, 2020 4:50pm Start: 08-06-2018 End: 11-09-2019 take 1 puff(s) by inhalation every four hours Albuterol Sulfate (Ventolin Hfa) 90 mcg/actuation HFA aerosol inhaler Discontinued 2 PUFF INHALATION Q4H August 06, 2018 2:33pm November 09, 2019 7:59pm Start: 08-06-2018 End: 11-09-2019 Albuterol Sulfate (Ventolin Hfa) 90 mcg/actuation HFA aerosol inhaler Discontinued 2 NMA INHALATION Q4H as needed August 06, 2018 12:00am November 09, 2019 7:59pm Start: 08-06-2018 End: 11-09-2019 take 1 puff(s) by inhalation every four hours Albuterol Sulfate (Ventolin Hfa) 90 mcg/actuation HFA aerosol inhaler Discontinued 2 PUFF INHALATION Q4H August 06, 2018 12:00am November 09, 2019 7:59pm ascorbic acid 1000 mg oral tablet (2 sources) Vitamin C take 1 tablet by mouth once daily Ascorbic Acid (VITAMIN C) 1,000 mg tablet Take 1,000 mg by mouth once daily. 0 Active Comment on above: Take 1,000 mg by rene th once daily. aspirin 81 mg chewable tablet (12 sources) Platelet Aggregation Inhibitor, Nonsteroidal Anti-inflammatory Drug Start: 01-06-2024 take 1 tablet by mouth once daily Aspirin 81 mg tablet,chewable Active 81 mg PO DAILY January 06, 2024 12:00am Start: 08-06-2018 End: 01-30-2022 Aspirin (Adult Low Dose Aspi rin) 81 mg tablet,delayed release (DR/EC) Discontinued 81 mg PO AT BEDTIME August 06, 2018 12:00am January 30, 2022 11:15am Comment on above: 81 mg. calcium ascorbate 500 mg oral tablet (8 sources) Start: 021 take 1 tablet by mouth once daily Ascorbate Calcium (Vitamin C) 500 mg tablet Active 500 mg PO DAILY December 20, 2020 1:00am celecoxib 200 mg oral capsule (3 sources) Nonsteroidal Anti-inflammatory Drug Start: 023 Celecoxib (Celebrex) 200 mg capsule Active 200 mg PO TWICE A DAY 60 April 03, 2023 12:00am start with 1 pill a day for 5 -7 days then 2x a day desmopressin acetate 0.2 mg oral tablet (2 sources) Vasopressin Analog, Factor VIII Activator Start: 024 End: 025 take 1 tablet by mouth at bedtime as needed Desmopressin (Ddavp) 0.2 mg tablet Active 0.4 mg PO AT BEDTIME as needed December 28, 2024 5:38pm docosahexaenoic acid/epa (FISH OIL ORAL) (2 sources) docosahexaenoic acid/epa (FISH OIL ORAL) Take 1,000 mg by mouth. Pt takes 3 in the morning 0 Active Comment on above: Take 1,000 mg by rene th. Pt takes 3 in the morning ibuprofen 200 mg oral capsule (6 sources) Nonsteroidal Anti-inflammatory Drug Start: Ibuprofen (Advil Liqui-Gel) 200 mg capsule Active 400 mg PO EVERY 6 HOURS as needed April 25, 2022 12:00am Multivitamin (Daily Multi-Vitamin) tablet (8 sources) Start: take 1 tablet by mouth once daily Multivitamin (Daily Multi-Vitamin) tablet Active 1 TABLET PO DAILY August 06, 2018 2:39pm Start: 08-06-2018 Multivitamin ( Daily Multi-Vitamin) tablet Active 1 {tbl} PO DAILY August 06, 2018 12:00am Start: 08-06-2018 take 1 tablet by rene th once daily Multivitamin (Daily Multi-Vitamin) tablet Active 1 TABLET PO DAILY August 05, 2018 11:00pm Start: 08-06-2018 take 1 tablet by rene th once daily Multivitamin (Daily Multi-Vitamin) tablet Active 1 TABLET PO DAILY August 06, 2018 12:00am multivitamin tablet (2 sources) take 1 tablet by mouth once daily multivitamin tablet Take 1 tablet by mouth once daily. 0 Active Comment on above: Take 1 tablet by rene th once daily. [place]-3 Fatty Acids (Fish Oil Concentrate) 1,000 mg capsule (8 sources) Start: 12-20-2020 take 1 capsule by mouth once daily [place]-3 Fatty Acids (Fish Oil Concentrate) 1,000 mg capsule Active 1000 MG PO DAILY December 20, 2020 4:51pm Start: 12-20-2020 take 1 capsule by mo [facility] once daily [place]-3 Fatty Acids (Fish Oil Concentrate) 1,000 mg capsule Active 1000 mg PO DAILY December 20, 2020 1:00am Start: 12-20-2020 take 1 capsule by mo ut once daily [place]-3 Fatty Acids (Fish Oil Concentrate) 1,000 mg capsule Active 1000 MG PO DAILY December 20, 2020 12:00am Start: 12-20-2020 take 1 capsule by mo uth once daily [place]-3 Fatty Acids (Fish Oil Concentrate) 1,000 mg capsule Active 1000 MG PO DAILY December 20, 2020 1:00am Phenazopyridine (2 sources) take 1000 mg by mouth once daily phenazopyridine HCl (AZO ORAL) Take 1,000 mg by mouth once daily. 0 Active Comment on above: Take 1,000 mg by rene once daily. sildenafil 25 mg oral tablet (12 sources) Phosphodiesterase 5 Inhibitor Start: End: Sildenafil 25 mg tablet Active 25 mg PO DAILY as needed for sexual activity May 05, 2024 5:18pm administer 30 minutes to 4 hours before activity Start: 12-24-2019 sildenafil (RE VATIO) 20 mg tablet TAKE 2-5 TABLETS BY MOUTH DIRECTED 1/2 HOUR PRIOR TO SEXUAL ACTIVITY 0 12/24/2019 Active Comment on above: TAKE 2-5 TABLETS BY MOUTH DIRECTED 1/2 HOUR PRIOR TO SEXUAL ACTIVITY Varenicline Tartrate 0.5 mg (11)- 1 mg (42) tablets,dose pack (1 source) Start: 4 take 1 tablet by mouth once Varenicline Tartrate 0.5 mg (11)- 1 mg (42) tablets,dose pack Active 0 PO per package directions 53 April 07, 2024 12:00am PO PER PKG DIR vitamin b12 1 mg oral capsule (18 sources) Vitamin B12 Start: 1 take 1 capsule by mouth once daily Cyanocobalamin (Vitamin B-12) 1,000 mcg capsule Active 1000 ug PO DAILY December 20, 2020 1:00am Start: 08-06-2018 End: 12-20-2020 take 1 tablet by mouth once daily Cyanocobalamin (Vitamin B-12) 100 mcg tablet Discontinued 100 ug PO DAILY August 06, 2018 12:00am December 20, 2020 4:49pm Comment on above: Vitamin B 12 cyanoco balamin (vit B-12) 100 mcg tablet Active 100 MCG DAILY August 06, 2018 2:34pm 08-06-2018 [facility] ([id number]) Completed/Discontinued Medications Medication Drug Class(es) Dates Sig (Normalized) Sig (Original) acetaminophen 500 mg oral tablet (7 sources) Start: 01-30-2022 End: 04-25-2022 take 2 tablets by mouth every six hours Acetaminophen (Tylenol Extra Strength) 500 mg tablet Discontinued 1000 mg PO EVERY 6 HOURS 100 January 30, 2022 12:00am April 25, 2022 9:31am amoxicillin 875 mg / clavulanate 125 mg oral tablet (11 sources) Penicillin-class Antibacterial Start: 07-07-2024 End: 11-18-2024 Amoxicillin-Pot Clavulanate 875-125 mg tablet Discontinued 1 {tbl} PO TWICE A DAY July 24, 2024 5:47pm November 18, 2024 6:42pm Start: 05-05-2024 End: 07-02-2024 Amoxicillin-Pot Clavulanate 875-125 mg tablet Discontinued 1 {tbl} PO TWICE A DAY May 05, 2024 5:23pm July 02, 2024 4:28pm Start: 12-18-2021 End: 12-18-2021 Amoxicillin-Pot Clavulanate 875-125 mg tablet Discontinued 1 {tbl} PO TWICE A DAY December 18, 2021 1:00am December 18, 2021 4:31pm Start: 12-18-2021 End: 12-18-2021 take 1 tablet by mouth twice daily Amoxicillin-Pot Clavulanate Discontinued 1 TABLET PO TWICE A DAY December 18, 2021 1:00am December 18, 2021 4:31pm apixaban 2.5 mg oral tablet (7 sources) Factor Xa Inhibitor Start: 01-30-2022 End: 03-12-2022 take 1 tablet by mouth twice daily in the morning Apixaban (Eliquis) 2.5 mg tablet Discontinued 2.5 mg PO TWICE A DAY January 30, 2022 12:00am March 12, 2022 9:48am Begin morning after surgery. azithromycin 250 mg oral tablet (8 sources) Macrolide Antimicrobial Start: 10-24-2018 End: 11-03-2018 take 2 tablets by mouth once daily, then take 1 tablet by mouth once daily at mealtime Azithromycin 250 mg tablet Discontinued 250 mg PO daily 6 October 24, 2018 1:00am November 02, 2018 1:00am November 03, 2018 1:08am 2 po qd for 1 day then 1 po qd for 4 days with food or after eating benazepril hydrochloride 10 mg oral tablet (20 sources) Angiotensin Converting Enzyme Inhibitor Start: 08-06-2018 End: 01-04-2025 take 1 tablet by mouth once daily Benazepril 10 mg tablet Discontinued 10 mg PO DAILY January 03, 2025 9:04pm January 04, 2025 11:54am Comment on above: Take 10 mg by mouth once daily. cefdinir 300 mg oral capsule (4 sources) Cephalosporin Antibacterial Start: 03-02-2021 End: 09-11-2023 take 1 capsule by mouth twice daily Cefdinir 300 mg capsule Discontinued 300 mg PO TWICE A DAY July 15, 2023 12:00am September 11, 2023 8:57am Comment on above: Take 1 capsule by mo ut twice daily. cefuroxime 500 mg oral tablet (8 sources) Cephalosporin Antibacterial Start: 11-21-2018 End: 12-05-2018 take 1 tablet by mouth every twelve hours Cefuroxime Axetil 500 mg tablet Discontinued 500 mg PO Q12H November 21, 2018 1:00am December 04, 2018 1:00am December 05, 2018 1:07am cephalexin 500 mg oral capsule (20 sources) Cephalosporin Antibacterial Start: 05-20-2020 End: 05-30-2020 take 1 capsule by mouth twice daily Cephalexin 500 mg capsule Discontinued 500 mg PO TWICE A DAY 09 08May 20, 2020 12:00am May 29, 2020 12:00am May 30, 2020 12:02am Start: 07-23-2019 End: 07-23-2019 take 1 capsule by mouth three times daily Cephalexin 500 mg capsule Discontinued 500 mg PO THREE TIMES A DAY 19 08July 23, 2019 12:00am August 01, 2019 12:00am July 23, 2019 3:46pm Start: 04-21-2019 End: 05-05-2019 take 1 capsule by mouth twice daily Cephalexin 500 mg capsule Discontinued 500 mg PO TWICE A DAY April 21, 2019 12:00am May 04, 2019 12:00am May 05, 2019 12:07am ciprofloxacin 500 mg oral tablet (20 sources) Quinolone Antimicrobial Start: 04-30-2022 End: 12-14-2022 take 1 tablet by mouth twice daily Ciprofloxacin Hcl (Cipro) 500 mg tablet Discontinued 500 mg PO TWICE A DAY December 11, 2022 4:54pm December 14, 2022 12:13pm Start: 08-02-2020 End: 12-18-2021 take 1 tablet by mouth twice daily Ciprofloxacin Hcl 500 mg tablet Discontinued 500 mg PO TWICE A DAY October 17, 2021 5:09pm December 18, 2021 4:10pm Start: 11-09-2019 End: 11-30-2019 take 1 tablet by mouth twice daily Ciprofloxacin Hcl 500 mg tablet Discontinued 500 mg PO TWICE A DAY 42 November 09, 2019 1:00am November 29, 2019 1:00am November 30, 2019 1:08am Start: 04-01-2019 End: 04-21-2019 take 1 tablet by mouth twice daily Ciprofloxacin Hcl (Cipro) 500 mg tablet Discontinued 500 mg PO TWICE A DAY April 01, 2019 12:00am April 21, 2019 5:00pm Start: 08-11-2018 End: 09-08-2018 take 1 tablet by mouth twice daily Ciprofloxacin Hcl 500 mg tablet Discontinued 500 mg PO TWICE A DAY August 11, 2018 12:00am September 08, 2018 5:35pm clarithromycin 500 mg oral tablet (1 source) Macrolide Antimicrobial Start: 05-18-2024 End: 07-02-2024 take 1 tablet by mouth twice daily Clarithromycin 500 mg tablet Discontinued 500 mg PO TWICE A DAY May 18, 2024 12:00am July 02, 2024 4:28pm clindamycin 300 mg oral capsule (7 sources) Lincosamide Antibacterial Start: 01-30-2022 End: 03-12-2022 Clindamycin Hcl 300 mg capsule Discontinued 600 mg PO Q8H January 30, 2022 12:00am March 12, 2022 9:49am please take 2 Tabs this evening 9:00 pm and then after you wake up tomorrow morning 2 tabs Start: 01-30-2022 End: 03-12-2022 Clindamycin Hcl Discontinued 600 MG PO Q8H January 30, 2022 12:00am March 12, 2022 9:49am please take 2 Tabs this evening 9:00 pm and then after you wake up tomorrow morning 2 tabs 24 hr darifenacin 15 mg extended release oral tablet (10 sources) Cholinergic Muscarinic Antagonist Start: 12-16-2019 End: 08-02-2020 take 1 tablet by mouth once daily Darifenacin 15 mg tablet extended release 24 hr Discontinued 15 mg PO DAILY December 16, 2019 1:00am August 02, 2020 5:39pm administer with fluid Comment on above: take 1 tablet by rene once daily doxycycline hyclate 100 mg oral capsule (8 sources) Tetracycline-class Drug Start: 07-02-2024 End: 07-24-2024 take 1 capsule by mouth twice daily Doxycycline Hyclate 100 mg capsule Discontinued 100 mg PO TWICE A DAY July 02, 2024 12:00am July 24, 2024 5:48pm Start: 04-03-2023 End: 07-16-2023 take 1 tablet by mouth twice daily Doxycycline Hyclate 100 mg tablet,delayed release (DR/EC) Discontinued 100 mg PO TWICE A DAY April 03, 2023 6:24pm July 16, 2023 1:13pm Start: 12-14-2022 End: 04-03-2023 take 1 tablet by mouth once daily Doxycycline Hyclate 100 mg tablet,delayed release (DR/EC) Discontinued 100 mg PO DAILY December 14, 2022 1:00am April 03, 2023 6:11pm finasteride 5 mg oral tablet (20 sources) 5-alpha Reductase Inhibitor Start: 12-18-2018 End: 04-01-2019 take 1 tablet by mouth once daily Finasteride 5 mg tablet Discontinued 5 mg PO DAILY December 18, 2018 6:33pm April 01, 2019 5:13pm Start: 08-06-2018 End: 12-02-2018 take 1 tablet by mouth once daily Finasteride (Proscar) 5 mg tablet Discontinued 5 mg PO DAILY August 06, 2018 12:00am December 02, 2018 10:56am furosemide 40 mg oral tablet (1 source) Loop Diuretic Start: 11-18-2024 End: 12-28-2024 take 1 tablet by mouth once daily in the morning Furosemide 40 mg tablet Discontinued 40 mg PO EVERY MORNING November 18, 2024 1:00am December 28, 2024 5:39pm levoFLOXacin 500 mg oral tablet (16 sources) Quinolone Antimicrobial Start: 12-18-2021 End: 12-20-2021 take 1 tablet by mouth once daily Levofloxacin 500 mg tablet Discontinued 500 mg PO DAILY December 18, 2021 1:00am December 20, 2021 3:23pm Start: 07-23-2019 End: 11-09-2019 take 1 tablet by mouth once daily Levofloxacin 500 mg tablet Discontinued 500 mg PO DAILY July 23, 2019 12:00am November 09, 2019 7:55pm levothyroxine sodium 0.112 mg oral tablet (20 sources) l-Thyroxine Start: 12-29-2024 End: 01-04-2025 Levothyroxine 100 mcg tablet Discontinued 100 ug PO daily January 03, 2025 9:04pm January 04, 2025 11:54am add to 112 mcg levothyroxine to = 212 mcg Start: 01-08-2024 End: 01-04-2025 Levothyroxine 112 mcg tablet Discontinued 112 ug PO DAILY January 03, 2025 9:04pm January 04, 2025 11:54am 112 mcg + 100 mcg = 212 mcg Start: 01-08-2024 Levothyroxine Active 224 MCG PO DAILY 180 January 08, 2024 7:53pm 112 mcg + 112 mcg = 224 Start: 12-12-2022 End: 01-08-2024 Levothyroxine 100 mcg tablet Discontinued 100 ug PO daily December 12, 2022 1:00am January 08, 2024 7:54pm 100 mcg + 112 mcg = 212 mcg per day Start: 12-12-2022 End: 01-08-2024 Levothyroxine 112 mcg tablet Discontinued 112 ug PO DAILY December 12, 2022 1:00am January 08, 2024 7:55pm 100 mcg + 112 mcg = 212 Start: 04-15-2020 End: 12-12-2022 Levothyroxine 200 mcg capsul e Discontinued 200 ug PO .5xweek 60 May 18, 2020 2:54pm December 22, 2020 12:16pm Start: 01-12-2020 levothyroxine (SYNTHROID) 175 mcg tablet 200 mcg. 0 01/12/2020 Active Start: 08-06-2018 End: 04-15-2020 take 1 tablet by mouth once daily Levothyroxine 175 mcg tablet Discontinued 175 ug PO DAILY February 25, 2020 10:35am April 15, 2020 4:56pm Comment on above: 200 mcg. montelukast 10 mg oral tablet (20 sources) Leukotriene Receptor Antagonist Start: End: take 1 tablet by mouth once daily in the evening Montelukast 10 mg tablet Discontinued 10 mg PO EVERY EVENING January 03, 2025 9:04pm January 04, 2025 11:54am Start: 08-06-2018 End: 12-18-2021 take 1 tablet by mouth once daily in the evening Montelukast 10 mg tablet Discontinued 10 mg PO EVERY EVENING December 18, 2018 6:33pm December 18, 2021 4:11pm nitrofurantoin, macrocrystals 100 mg oral capsule (11 sources) Nitrofuran Antibacterial Start: 04-08-2023 End: 04-22-2023 take 1 capsule by mouth twice daily at mealtime Nitrofurantoin Macrocrystal 100 mg capsule Discontinued 100 mg PO TWICE A DAY April 08, 2023 12:00am April 21, 2023 12:00am April 22, 2023 12:03am must administer with a meal/food Start: 12-20-2021 End: 01-03-2022 take 1 capsule by mouth twice daily at mealtime Nitrofurantoin Macrocrystal (Macrodantin) 100 mg capsule Discontinued 100 mg PO TWICE A DAY December 20, 2021 1:00am January 02, 2022 12:00am January 03, 2022 12:03am must administer with a meal/food 24 hr oxybutynin chloride 10 mg extended release oral tablet (18 sources) Cholinergic Muscarinic Antagonist Start: 08-02-2020 End: 12-28-2024 take 1 tablet by mouth once daily Oxybutynin Chloride 10 mg tablet extended release 24hr Discontinued 10 mg PO DAILY December 13, 2022 1:28pm December 28, 2024 5:39pm Comment on above: take 1 tablet by rene th once daily oxyCODONE hydrochloride 5 mg oral tablet (7 sources) Opioid Agonist Start: 01-30-2022 End: 03-12-2022 take 1 tablet by mouth every four hours as needed for pain Oxycodone 5 mg tablet Discontinued 5 mg PO Q4H as needed for pain 60 7 January 30, 2022 March 12, 2022 9:49am predniSONE 20 mg oral tablet (1 source) Start: 05-05-2024 End: 07-02-2024 take 2 tablets by mouth once daily Prednisone 20 mg tablet Discontinued 40 mg PO DAILY May 05, 2024 12:00am July 02, 2024 4:29pm simvastatin 20 mg oral tablet (20 sources) HMG-CoA Reductase Inhibitor Start: 08-06-2018 End: 01-04-2025 take 1 tablet by mouth at bedtime Simvastatin 20 mg tablet Discontinued 20 mg PO AT BEDTIME January 03, 2025 9:05pm January 04, 2025 11:54am Comment on above: Take 20 mg by mouth daily at bedtime. solifenacin succinate 10 mg oral tablet (8 sources) Cholinergic Muscarinic Antagonist Start: 08-06-2018 End: 09-08-2018 take 1 tablet by mouth once daily Solifenacin (Vesicare) 10 mg tablet Discontinued 10 mg PO DAILY August 06, 2018 12:00am September 08, 2018 5:35pm tamsulosin hydrochloride 0.4 mg oral capsule (20 sources) alpha-Adrenergic Jose Juan Start: 12-20-2020 End: 01-04-2025 take 1 capsule by mouth at bedtime Tamsulosin 0.4 mg capsule Discontinued 0.4 mg PO AT BEDTIME January 03, 2025 9:05pm January 04, 2025 11:54am Start: 07-20-2020 take 2 capsules by m outh once daily at bedtime tamsulosin ER (FLOMAX) 0.4 mg Indications: Urinary incontinence, urge Take 2 capsules by mouth daily at bedtime. 60 capsule 11 07/20/2020 Active Start: 12-16-2019 End: 12-20-2020 take 1 capsule by mouth twice daily Tamsulosin 0.4 mg capsule Discontinued 0.4 mg PO TWICE A DAY December 16, 2019 4:05pm December 20, 2020 4:55pm Start: 08-06-2018 End: 12-16-2019 take 1 capsule by mouth once daily Tamsulosin 0.4 mg capsule Discontinued 0.4 mg PO DAILY December 18, 2018 6:34pm December 16, 2019 4:06pm Comment on above: Take 2 capsules by m outh daily at bedtime. thyroid (snf) 15 mg oral tablet (16 sources) Start: 12-17-19 End: 04-15-20 take 1 tablet by mouth once daily Thyroid (Pork) 15 mg tablet Discontinued 15 mg PO DAILY February 23, 2020 1:19pm April 15, 2020 4:56pm triamcinolone acetonide 5 mg/ml topical cream (8 sources) Corticosteroid Start: 08-06-20 End: 09-08-20 Triamcinolone Acetonide 0.5 % cream Discontinued 1 NMA TOPICAL TWICE A DAY August 06, 2018 12:00am September 08, 2018 5:35pm Problems Active Problems Problem Classification Problem Date Documented Date Episodic/Chronic Allergic reactions (8 sources) Eczema; Translations: [Dermatitis, unspecified] 10-24-2018 Episodic Chronic obstructive pulmonary disease and bronchiectasis (1 source) Bronchitis; Translations: [Bronchitis, not specified as acute or chronic] 05-05-2024 Episodic Disorders of lipid metabolism (8 sources) Hyperlipidemia; Translations: [Hyperlipidemia, unspecified] 12-18-2018 Chronic Essential hypertension (9 sources) Hypertensive disorder; Translations: [Essential (primary) hypertension] Onset: 01-07-2025 12-18-2019 Chronic Genitourinary symptoms and ill-defined conditions (16 sources) Urge incontinence of urine; Translations: [Urge incontinence] Onset: 12-02-2019 12-11-2022 Chronic Genitourinary symptoms and ill-defined conditions (20 sources) Foul smelling urine; Translations: [Unspecified abnormal findings in urine] Onset: 12-02-2019 08-06-2018 Episodic Hyperplasia of prostate (9 sources) Benign prostatic hyperplasia; Translations: [Benign prostatic hyperplasia without lower urinary tract symptoms] Onset: 12-02-2019 12-11-2022 Chronic Osteoarthritis (11 sources) Osteoarthritis of right hip joint; Translations: [Unilateral primary osteoarthritis, right hip] Chronic Other aftercare (6 sources) Follow-up status; Translations: [Encounter for other orthopedic aftercare] 02-12-2022 Episodic Other aftercare (3 sources) Encounter for other orthopedic aftercare; Translations: [Unspecified orthopedic aftercare] Episodic Other connective tissue disease (8 sources) H/O: osteoarthritis; Translations: [Personal history of other diseases of the musculoskeletal system and connective tissue] 09-08-2018 Episodic Other male genital disorders (6 sources) Secondary erectile dysfunction; Translations: [Erectile dysfunction due to diseases classified elsewhere] 04-30-2022 Chronic Other nervous system disorders (7 sources) Acute postoperative pain; Translations: [Other acute postprocedural pain] 01-30-2022 Episodic Other nervous system disorders (3 sources) Other acute postprocedural pain; Translations: [Other acute postoperative pain] Episodic Other nervous system disorders (1 source) Abnormal gait; Translations: [Unsteadiness on feet] 11-18-2024 Episodic Other non-traumatic joint disorders (8 sources) Hip pain; Translations: [Pain in right hip] 12-18-2021 Episodic Other upper respiratory infections (8 sources) Maxillary sinusitis; Translations: [Chronic maxillary sinusitis] 05-20-2020 Chronic Other upper respiratory infections (8 sources) Pharyngitis; Translations: [Acute pharyngitis, unspecified] 05-20-2020 Episodic Otitis media and related conditions (16 sources) Otitis media; Translations: [Otitis media, unspecified, bilateral] 11-21-2018 Episodic Residual codes; unclassified (1 source) Edema of lower leg ; Translations: [Localized edema] 11-18-2024 Episodic Spondylosis; intervertebral disc disorders; other back problems (3 sources) Cervical spondylosis; Translations: [Spondylosis without myelopathy or radiculopathy, cervical region] 04-03-2023 Chronic Spondylosis; intervertebral disc disorders; other back problems (16 sources) Radicular pain; Translations: [Radiculopathy, site unspecified] 01-03-2022 Episodic Substance-related disorders (1 source) Smoker; Translations: [Nicotine dependence, unspecified, uncomplicated] 04-07-2024 Chronic Thyroid disorders (8 sources) Hypothyroidism; Translations: [Hypothyroidism, unspecified] 12-18-2018 Chronic Past or Other Problems Problem Classification Problem Date Documented Da te Episodic/Chronic Inflammatory conditions of male genital organs (4 sources) Orchitis and epididymitis; Translations: [Epididymo-orchitis ] Onset: 02-13-2021 02-13-2021 Episodic Other diseases of bladder and urethra (2 sources) Male urethral stricture; Translations: [Unspecified urethral stricture, male, unspecified site] Onset: 04-07-2020 04-07-2020 Episodic Unclassified (5 sources) AMPUTATION L FT TOES 05-21-2022 Comment on above: WORK ACCIDENT Unclassified (5 sources) botox of bladder 12-13-2022 Comment on above: RAB 11/04/16 Urinary tract infections (20 sources) Urinary tract infectious disease; Translations: [Urinary tract infection, site not specified] Onset: 02-13-2021 11-09-2019 Episodic Results Test Name Value Interpretation Reference Range Facility Comprehensive Metabolic Prof ilbarbra 12-29-2024 Albumin [Mass/Vol] 4.3 g/dL Normal 3.4-4.8 [facility] Comment on above: Performed By: #### L 501.9520, L500.4050, L501.9910, L500.4100, L100.0100 #### [facility] [address] [place], [address] Albumin/Globulin [Mass ratio] 1.6 {ratio} Normal 0.9-2.4 [facility] Comment on above: Performed By: #### L [id number], L500.4050, L501.9910, L500.4100, L100.0100 #### [facility] [address] [place], [address] ALK PHOS 51 U/L Normal 40-129 [facility] Comment on above: Performed By: #### L [id number], L500.4050, L501.9910, L500.4100, L100.0100 #### [facility] [address] [place], [address] ALT [Catalytic activity/Vol] 32 U/L Normal <=46 [facility] Comment on above: Performed By: #### L [id number], L500.4050, L501.9910, L500.4100, L100.0100 #### [facility] [address] [place], [address] AST [Catalytic activity/Vol] 26 U/L Normal <=37 [facility] Comment on above: Performed By: #### L [id number], L500.4050, L501.9910, L500.4100, L100.0100 #### [facility] [address] [place], [address] BUN/CRE 21.8 RATIO High 10-20 [facility] Comment on above: Performed By: #### L [id number], L500.4050, L501.9910, L500.4100, L100.0100 #### [facility] [address] [place], [address] Calcium [Mass/Vol] 9.0 mg/dL Normal 7.6-11.0 [facility] Comment on above: Performed By: #### L [id number], L500.4050, L501.9910, L500.4100, L100.0100 #### [facility] [address] [place], [address] Chloride [Moles/Vol] 103 mmol/L Normal 98-108 [facility] Comment on above: Performed By: #### L 501.9520, L500.4050, L501.9910, L500.4100, L100.0100 #### [facility] [address] [place], [address] CO2 [Moles/Vol] 21.1 mmol/L Normal 21.0-32.0 [facility] Comment on above: Performed By: #### L 501.9520, L500.4050, L501.9910, L500.4100, L100.0100 #### [facility] [address] [place], [address] Creatinine [Mass/Vol] 1.04 mg/dL Normal 0.70-1.20 [facility] Comment on above: Performed By: #### L 501.9520, L500.4050, L501.9910, L500.4100, L100.0100 #### [facility] [address] [place], [address] GAP 12 Normal 5-15 [facility] Comment on above: Performed By: #### L 501.9520, L500.4050, L501.9910, L500.4100, L100.0100 #### [facility] [address] [place], [address] GFR/1.73 sq M.predicted among non-blacks MDRD (S/P/Bld) [Vol rate/Area] 77 mL/min/{1.73_m2} Normal >60 [facility] Comment on above: Result Comment: mL/m in/1.73m2 CKD-EPI Creatinine Equation (2020) Performed By: #### L 501.9520, L500.4050, L501.9910, L500.4100, L100.0100 #### [facility] [address] [place], [address] Globulin (S) [Mass/Vol] 2.6 g/dL Normal 2.2-4.2 [facility] Comment on above: Performed By: #### L 501.9520, L500.4050, L501.9910, L500.4100, L100.0100 #### [facility] [address] [place], [address] Glucose [Mass/Vol] 95 mg/dL Normal 70-99 [facility] Comment on above: Performed By: #### L 501.9520, L500.4050, L501.9910, L500.4100, L100.0100 #### [facility] [address] [place], [address] Potassium [Moles/Vol] 4.4 mmol/L Normal 3.3-5.1 [facility] Comment on above: Performed By: #### L 501.9520, L500.4050, L501.9910, L500.4100, L100.0100 #### [facility] [address] [place], [address] Sodium [Moles/Vol] 137 mmol/L Normal 133-145 [facility] Comment on above: Performed By: #### L 501.9520, L500.4050, L501.9910, L500.4100, L100.0100 #### [facility] [address] [place], [address] T BILI < 0.15 Normal 0.00-1.30 [facility] Comment on above: Performed By: #### L 501.9520, L500.4050, L501.9910, L500.4100, L100.0100 #### [facility] [address] [place], [address] T PROT 6.9 g/dL Normal 5.9-8.4 [facility] Comment on above: Performed By: #### L 501.9520, L500.4050, L501.9910, L500.4100, L100.0100 #### [facility] [address] [place], [address] Urea nitrogen [Mass/Vol] 23 mg/dL High 4-19 [facility] Comment on above: Performed By: #### L 501.9520, L500.4050, L501.9910, L500.4100, L100.0100 #### [facility] [address] [place], [address] Lipid Profileon 12-29-2024 CHOL:HDL 3.37 Normal [facility] Comment on above: Performed By: #### L 501.9520, L500.4050, L501.9910, L500.4100, L100.0100 #### [facility] [address] [place], [address] Cholesterol [Mass/Vol] 131 mg/dL Normal <=200 [facility] Comment on above: Result Comment: Chol esterol level, Desirable <200 mg/dL Borderline high cholesterol 200-239 mg/dL High cholesterol >=240 mg/dL Recommendations of the NCEP Adult Treatment Panel for the following risk-cutoff thresholds for the [place] population. Performed By: #### L 501.9520, L500.4050, L501.9910, L500.4100, L100.0100 #### [facility] [address] [place], [address] Cholesterol in HDL [Mass/Vol] 39 mg/dL Low [facility] Comment on above: Result Comment: Jessica onal Cholesterol Education Program (NCEP) guidelines: <40 mg/dL: Low HDL-cholesterol (major risk factor for CHD) >= 60 mg/dL: High HDL-cholesterol (negative risk factor for CHD) HDL-cholesterol is affected by a number of factors, e.g. smoking, exercise, hormones, sex and age. Performed By: #### L 501.9520, L500.4050, L501.9910, L500.4100, L100.0100 #### [facility] [address] [place], [address] Cholesterol in LDL [Mass/Vol] 72 mg/dL Normal [facility] Comment on above: Result Comment: Bord osrhlf=929-292 mg/dL Higher Jobf=293 mg/dL or greater Performed By: #### L 501.9520, L500.4050, L501.9910, L500.4100, L100.0100 #### [facility] [address] [place], [address] Cholesterol in VLDL [Mass/Vol] 20 mg/dL Normal 5-40 [facility] Comment on above: Performed By: #### L 501.9520, L500.4050, L501.9910, L500.4100, L100.0100 #### [facility] [address] [place], [address] Triglyceride [Mass/Vol] 99 mg/dL Normal [facility] Comment on above: Result Comment: The drugs N-Acetylcysteine and Metamizole may falsely depress this assay. Normal range: <150 mg/dL Borderline High: 150-199 mg/dL High: 200-499 mg/dL Very High: >500 mg/dL Performed By: #### L 501.9520, L500.4050, L501.9910, L500.4100, L100.0100 #### [facility] [address] [place], [address] PSA,Total - Annual Screenon 12-29-2024 PSA,TOT SCREEN 1.35 ng/mL Normal 0.02-4.00 [facility] Comment on above: Result Comment: This test was performed using the [employer] tPSA method. Measured values of a patient??sample can vary depending on the testing procedure used. PSA values determined on patient samples by different testing procedures cannot be used interchangeably. If there is a change in PSA assays while monitoring therapy, sequential testing should be performed to confirm baseline values. Performed By: #### L 501.9520, L500.4050, L501.9910, L500.4100, L100.0100 #### [facility] [address] [place], [place], [id number] Thyroid Stim Hormone (TSH)on 12-29-2024 TSH 0.294 uIU/mL Low 0.300-4.200 [facility] Comment on above: Performed By: #### L 501.9520, L500.4050, L501.9910, L500.4100, L100.0100 #### [facility] [address] [place], [address] Absolute neutrophil countOrd ered By: Manny Golden on 12-28-2024 Neutrophils (Bld) [#/Vol] 3.8 10*3/uL 2.0-7.7 [facility] Anion gap in Serum or Plasma Ordered By: Manny Golden on 12-28-2024 Anion gap [Moles/Vol] 12 mmol/L 5-15 [facility] BUN/creatinine ratioOrdered By: Manny Golden on 12-28-2024 Urea nitrogen/Creatinine [Mass ratio] 21.8 mg/mg High 10- [facility] Basophil percentageOrdered B y: Manny Golden on 12-28-2024 Basophils/100 WBC (Bld) 0.7 % 0-1 [facility] Bilirubin, totalOrdered By: Manny Golden on 12-28-2024 Bilirubin [Mass/Vol] mg/dL 0.00-1.30 [facility] CBC W/Diff, Automatedon 03- 0-2024 Absolute Lymph 2.09 X10 3/uL Normal 0.83-4.51 [facility] Comment on above: Performed By: #### L 501.9520, L500.4050, L501.9910, L500.4100, L100.0100 #### [facility] [address] [place], [address] Absolute Neut 3.8 X10 3/uL Normal 2.0-7.7 [facility] Comment on above: Performed By: #### L 501.9520, L500.4050, L501.9910, L500.4100, L100.0100 #### [facility] [address] [place], [address] Basophils/100 WBC (Bld) 0.7 % Normal 0-1 [facility] Comment on above: Performed By: #### L 501.9520, L500.4050, L501.9910, L500.4100, L100.0100 #### [facility] [address] [place], [address] Eosinophils/100 WBC (Bld) 7.5 % High 0-5 [facility] Comment on above: Performed By: #### L 501.9520, L500.4050, L501.9910, L500.4100, L100.0100 #### [facility] [address] [place], [address] Erythrocyte distribution width (RBC) [Ratio] 13.3 % Normal 11.6-14.6 [facility] Comment on above: Performed By: #### L 501.9520, L500.4050, L501.9910, L500.4100, L100.0100 #### [facility] [address] [place], [address] Hematocrit (Bld) [Volume fraction] 43.1 % Normal 40-54 [facility] Comment on above: Performed By: #### L 501.9520, L500.4050, L501.9910, L500.4100, L100.0100 #### [facility] [address] [place], [address] Hemoglobin (Bld) [Mass/Vol] 14.3 g/dL Normal 13.0-16.5 [facility] Comment on above: Performed By: #### L 501.9520, L500.4050, L501.9910, L500.4100, L100.0100 #### [facility] [address] [place], [address] IG% 0.800 Normal 0.0-0.9 [facility] Comment on above: Result Comment: IG% - Immature Granulocytes (promyelocytes, myelocytes and metamyelocytes) > 1% indicates that a LEFT SHIFT is Present. Performed By: #### L 501.9520, L500.4050, L501.9910, L500.4100, L100.0100 #### [facility] [address] [place], [address] Lymphocytes/100 WBC (Bld) 28.9 % Normal 19-41 [facility] Comment on above: Performed By: #### L 501.9520, L500.4050, L501.9910, L500.4100, L100.0100 #### [facility] [address] [place], [address] MCH (RBC) [Entitic mass] 31.0 pg Normal 27.0-32.0 [facility] Comment on above: Performed By: #### L 501.9520, L500.4050, L501.9910, L500.4100, L100.0100 #### [facility] [address] [place], [address] MCHC (RBC) [Mass/Vol] 33.2 g/dL Normal 32-36 [facility] Comment on above: Performed By: #### L 501.9520, L500.4050, L501.9910, L500.4100, L100.0100 #### [facility] [address] [place], [address] MCV (RBC) [Entitic vol] 93.5 fL Normal 80-94 [facility] Comment on above: Performed By: #### L 501.9520, L500.4050, L501.9910, L500.4100, L100.0100 #### [facility] [address] [place], [address] Monocytes/100 WBC (Bld) 10.1 % High 0-10 [facility] Comment on above: Performed By: #### L 501.9520, L500.4050, L501.9910, L500.4100, L100.0100 #### [facility] [address] [place], [address] Neutrophils/100 WBC (Bld) 52.0 % Normal 47-70 [facility] Comment on above: Performed By: #### L 501.9520, L500.4050, L501.9910, L500.4100, L100.0100 #### [facility] [address] [place], [address] Nucleated RBC (Bld) [#/Vol] 0 10*3/uL Normal 0-5 [facility] Comment on above: Performed By: #### L 501.9520, L500.4050, L501.9910, L500.4100, L100.0100 #### [facility] [address] [place], [address] Platelet mean volume (Bld) [Entitic vol] 12.3 fL High 6.2-12.0 [facility] Comment on above: Performed By: #### L 501.9520, L500.4050, L501.9910, L500.4100, L100.0100 #### [facility] [address] [place], [address] Platelets (Bld) [#/Vol] 154 10*3/uL Normal 150-450 [facility] Comment on above: Performed By: #### L 501.9520, L500.4050, L501.9910, L500.4100, L100.0100 #### [facility] [address] [place], [address] RBC (Bld) [#/Vol] 4.61 10*6/uL Normal 4.6-6.2 [facility] Comment on above: Performed By: #### L 501.9520, L500.4050, L501.9910, L500.4100, L100.0100 #### [facility] [address] [place], [address] RDW SD 45.6 fl High 35.1-43.9 [facility] Comment on above: Performed By: #### L 501.9520, L500.4050, L501.9910, L500.4100, L100.0100 #### [facility] [address] [place], [address] WBC (Bld) [#/Vol] 7.2 10*3/uL Normal 4.4-11.0 [facility] Comment on above: Performed By: #### L 501.9520, L500.4050, L501.9910, L500.4100, L100.0100 #### [facility] [address] [place], [address] Calculated very low density lipoprotein (VLDL) cholesterol measurementOrdered By: Manny Golden on 12-28-2024 VLDL Cholesterol 20 mg/dL 5-40 [facility] Carbon dioxide, total [Moles /volume] in Central venous bloodOrdered By: Manny Golden on 12-28-2024 CO2 [Moles/Vol] 21.1 mmol/L 21.0-32.0 [facility] Chloride assayOrdered By: Do ra Golden on 12-28-2024 Chloride [Moles/Vol] 103 mmol/L 98-108 [facility] Eosinophil percentageOrdered By: Manny Golden on 12-28-2024 Eosinophils/100 WBC (Bld) 7.5 % High 0-5 [facility] Erythrocyte distribution wid th ratioOrdered By: Manny Golden on 12-28-2024 Erythrocyte distribution width (RBC) [Ratio] 13.3 % 11.6-14.6 [facility] Erythrocyte distribution wid th standard deviationOrdered By: Manny Golden on 12-28-2024 Erythrocyte distribution width (RBC) [Entitic vol] 45.6 fL High 35.1-43.9 [facility] GFR/1.73 sq M.predicted shen g non-blacks MDRD (S/P/Bld) [Vol rate/Area]Ordered By: Manny Golden on 12-28-2024 Estimated GFR (MDRD) Non-Af Amer 77 >60 [facility] Comment on above: mL/min/1.73m2 CKD-EP I Creatinine Equation (2020) Hematocrit Auto (Bld) [Volum e fraction]Ordered By: Manny Golden on 12-28-2024 Hematocrit (Bld) [Volume fraction] 43.1 % 40-54 [facility] Hemoglobin measurementOrdere d By: Manny Golden on 12-28-2024 Hemoglobin (Bld) [Mass/Vol] 14.3 g/dL 13.0-16.5 [facility] Immature granulocytes/100 WB C Auto (Bld)Ordered By: Manny Golden on 12-28-2024 Immature granulocytes/100 WBC (Bld) 0.800 % 0.0-0.9 [facility] Comment on above: IG% - Immature Granu locytes (promyelocytes, myelocytes and metamyelocytes) > 1% indicates that a LEFT SHIFT is Present. LDL calc ser/plasOrdered By: Manny Golden on 12-28-2024 LDL Cholesterol, Calculated 72 mg/dL [facility] Comment on above: Dvvwsarush=847-224 m g/dL & Higher Wbtz=309 mg/dL or greater Laboratory - Chemistry and C hemistry - challengeOrdered By: Manny Golden on 12-28-2024 AST [Catalytic activity/Vol] 26 U/L <38 [facility] Lymphocytes Auto (Unsp spec) [#/Vol]Ordered By: Manny Golden on 12-28-2024 Lymphocytes (Bld) [#/Vol] 2.09 10*3/uL 0.83-4.51 [facility] Lymphocytes/100 WBC Auto (Un sp spec)Ordered By: Manny Golden on 12-28-2024 Lymphocytes/100 WBC (Bld) 28.9 % 19-41 [facility] MCV (mean corpuscular volume ) determinationOrdered By: Manny Golden on 12-28-2024 MCV (RBC) [Entitic vol] 93.5 fL 80-94 [facility] Mean corpuscular hemoglobin (MCH) determinationOrdered By: Manny Golden on 12-28-2024 MCH (RBC) [Entitic mass] 31.0 pg 27.0-32.0 [facility] Mean corpuscular hemoglobin concentration (MCHC) determinationOrdered By: Manny Golden on 12-28-2024 MCHC (RBC) [Mass/Vol] 33.2 g/dL 32-36 [facility] Mean platelet volume determi nationOrdered By: Manny Golden on 12-28-2024 Platelet mean volume (Bld) [Entitic vol] 12.3 fL High 6.2-12.0 [facility] Monocyte percentageOrdered B y: Manny Golden on 12-28-2024 Monocytes/100 WBC (Bld) 10.1 % High 0-10 [facility] Neutrophil percentageOrdered By: Manny Golden on 12-28-2024 Neutrophils/100 WBC (Bld) 52.0 % 47-70 [facility] Nucleated red blood cell per centageOrdered By: Manny Golden on 12-28-2024 Nucleated RBC/100 WBC (Bld) [Ratio] 0 % 0-5 [facility] PSA, total screeningOrdered By: Manny Golden on 12-28-2024 Prostate Specific Antigen Screen 1.35 ng/mL 0.02-4.00 [facility] Comment on above: This test was perfor med using the [employer] tPSA method. Measured values of a patient sample can vary depending on the testing procedure used. PSA values determined on patient samples by different testing procedures cannot be used interchangeably. If there is a change in PSA assays while monitoring therapy, sequential testing should be performed to confirm baseline values. Platelet countOrdered By: Do ra Golden on 12-28-2024 Platelets (Bld) [#/Vol] 154 10*3/uL 150-450 [facility] Potassium (Unsp spec) [Mass/ Vol]Ordered By: Manny Golden on 12-28-2024 Potassium [Moles/Vol] 4.4 mmol/L 3.3-5.1 [facility] RBC Auto (Bld) [#/Vol]Ordere d By: Manny Golden on 12-28-2024 RBC (Bld) [#/Vol] 4.61 10*6/uL 4.6-6.2 [facility] Screening total cholesterol/ high density lipoprotein (HDL) cholesterol ratioOrdered By: Manny Golden on 12-28-2024 Cholesterol.total/Choles terol in HDL [Mass ratio] 3.37 {ratio} [facility] Serum creatinine measurement (mass/volume)Ordered By: Manny Golden on 12-28-2024 Creatinine [Mass/Vol] 1.04 mg/dL 0.70-1.20 [facility] Serum globulin measurementOr dered By: Manny Golden on 12-28-2024 Globulin (S) [Mass/Vol] 2.6 g/dL 2.2-4.2 [facility] Serum glucose measurement (m ass/volume)Ordered By: Manny Golden on 12-28-2024 Glucose [Mass/Vol] 95 mg/dL 70-99 [facility] Serum or plasma alanine melvin otransferase (ALT) measurementOrdered By: Manny Golden on 12-28-2024 ALT [Catalytic activity/Vol] 32 U/L <47 [facility] Serum or plasma albumin parish urement (mass/volume)Ordered By: Manny Golden on 12-28-2024 Albumin [Mass/Vol] 4.3 g/dL 3.4-4.8 [facility] Serum or plasma albumin/glob ulin mass ratioOrdered By: Manny Golden on 12-28-2024 Albumin/Globulin [Mass ratio] 1.6 {ratio} 0.9-2.4 [facility] Serum or plasma alkaline armando sphatase measurementOrdered By: Manny Golden on 12-28-2024 ALP [Catalytic activity/Vol] 51 U/L 40-129 [facility] Serum or plasma calcium parish urement (mass/volume)Ordered By: Manny Golden on 12-28-2024 Calcium [Mass/Vol] 9.0 mg/dL 7.6-11.0 [facility] Serum or plasma cholesterol in HDL measurement (mass/volume)Ordered By: Manny Golden on 12-28-2024 Cholesterol in HDL [Mass/Vol] 39 mg/dL Low >40 [facility] Comment on above: National Cholesterol Education Program (NCEP) guidelines:<40 mg/dL: Low HDL-cholesterol (major risk factor for CHD)>= 60 mg/dL: High HDL-cholesterol (negative risk factor for CHD)HDL-cholesterol is affected by a number of factors, e.g. smoking, exercise, hormones, sex and age. Serum or plasma cholesterol measurement (mass/volume)Ordered By: Manny Golden on 12-28-2024 Cholesterol [Mass/Vol] 131 mg/dL <201 [facility] Comment on above: Cholesterol level, D esirable <200 mg/dLBorderline high cholesterol 200-239 mg/dLHigh cholesterol >=240 mg/dLRecommendations of the NCEP Adult Treatment Panel for the following risk-cutoff thresholds for the [place] population. Serum or plasma urea nitroge n measurement (mass/volume)Ordered By: Manny Golden on 12-28-2024 Urea nitrogen [Mass/Vol] 23 mg/dL High 4-19 [facility] Sodium levelOrdered By: Manny Golden on 12-28-2024 Sodium [Moles/Vol] 137 mmol/L 133-145 [facility] TSH DL <= 0.005 mIU/L QnOrde red By: Manny Golden on 12-28-2024 Thyroid Stimulating Hormone (TSH) 0.294 uIU/mL Low 0.300-4.200 [facility] Total proteinOrdered By: Dwight Golden on 12-28-2024 Protein [Mass/Vol] 6.9 g/dL 5.9-8.4 [facility] Triglycerides measurementOrd ered By: Manny Golden on 12-28-2024 Triglyceride [Mass/Vol] 99 mg/dL <199 [facility] Comment on above: The drugs N-Acetylcy steine and Metamizole may falsely depress this assay. Normal range: <150 mg/dLBorderline High: 150-199 mg/dLHigh: 200-499 mg/dLVery High: >500 mg/dL White blood cell (WBC) count Ordered By: Manny Golden on 12-28-2024 WBC (Bld) [#/Vol] 7.2 10*3/uL 4.4-11.0 [facility] Basic metabolic 2000 panelon 08-31-2024 Anion gap [Moles/Vol] 8 mmol/L Normal 8-15 [facility] Comment on above: Order Comment: Speci men Type: BLOOD SPECIMEN Ordering Facility: [facility] Address: [address] [place] [address], [address] [place] [address] Performed By: #### 2 4321-2 #### [facility] CLIA [id number] [address] [place] [address] [place] Calcium [Mass/Vol] 9.2 mg/dL Normal 8.5-10.2 [facility] Comment on above: Order Comment: Speci men Type: BLOOD SPECIMEN Ordering Facility: [facility] Address: [address] [place] [address], [address] [place] [address] Performed By: #### 2 4321-2 #### [facility] CLIA [id number] [address] [place] [address] [place] Chloride [Moles/Vol] 101 mmol/L Normal 98-107 [facility] Comment on above: Order Comment: Speci men Type: BLOOD SPECIMEN Ordering Facility: [facility] Address: [address] [place] [address], [address] [place] [address] Performed By: #### 2 4321-2 #### [facility] CLIA [id number] [address] [place] [address] [place] CO2 [Moles/Vol] 29 mmol/L Normal 22-30 [facility] Comment on above: Order Comment: Speci men Type: BLOOD SPECIMEN Ordering Facility: [facility] Address: [address] [place] [address] Performed By: #### 2 4321-2 #### [facility] CLIA [id number] [address] [place], [place] [id number] [place] Creatinine [Mass/Vol] 1.09 mg/dL Normal 0.73-1.22 [facility] Comment on above: Order Comment: Speci men Type: BLOOD SPECIMEN Ordering Facility: [facility] Address: [address] [place] [address] Performed By: #### 2 4321-2 #### [facility] CLIA [id number] [address] [place] [address] Creatinine and Glomerular filtration rate.predicted panel (S/P/Bld) 73 mL/min/1.73m??? Normal >=60 [facility] Comment on above: Order Comment: Speci men Type: BLOOD SPECIMEN Ordering Facility: [facility] Address: [address] [place] [address] Result Comment: Luda mated Glomerular Filtration Rate (eGFR) is calculated using the 2020 CKD-EPI creatinine equation. This equation utilizes serum creatinine, sex, and age as parameters. The creatinine assay has traceable calibration to isotope dilution-mass spectrometry. Refer to KDIGO guidelines for clinical interpretation. In patients with unstable renal function, e.g. those with acute kidney injury, the eGFR may not accurately reflect actual GFR. Performed By: #### 2 4321-2 #### [facility] CLIA [id number] [address] [place], [place] [id number] [place] Glucose [Mass/Vol] 109 mg/dL High 74-99 [facility] Comment on above: Order Comment: Speci men Type: BLOOD SPECIMEN Ordering Facility: [facility] Address: [address] [place] [address] Result Comment: The [place] Diabetes Association (ADA) provides guidance for cutoff values for fasting glucose and random glucose. The ADA defines fasting as no caloric intake for at least 8 hours. Fasting plasma glucose results between 100 to 125 mg/dL indicate increased risk for diabetes (prediabetes). Fasting plasma glucose results greater than or equal to 126 mg/dL meet the criteria for diagnosis of diabetes. In the absence of unequivocal hyperglycemia, results should be confirmed by repeat testing. In a patient with classic symptoms of hyperglycemia or hyperglycemic crisis, random plasma glucose results greater than or equal to 200 mg/dL meet the criteria for diagnosis of diabetes. Reference: Standards of Medical Care in Diabetes 2016, [place] [employer] Association. Diabetes Care. 2016.39(Suppl 1). Performed By: #### 2 4321-2 #### [facility] CLIA [id number] [address] [place] [address] [place] Potassium [Moles/Vol] 4.3 mmol/L Normal 3.7-5.1 [facility] Comment on above: Order Comment: Speci men Type: BLOOD SPECIMEN Ordering Facility: [facility] Address: [address] [place] [address] Performed By: #### 2 4321-2 #### [facility] CLIA [id number] [address] [place] [address] [place] Sodium [Moles/Vol] 138 mmol/L Normal 136-144 [facility] Comment on above: Order Comment: Speci men Type: BLOOD SPECIMEN Ordering Facility: [facility] Address: [address] [place] [address] Performed By: #### 2 4321-2 #### [facility] CLIA [id number] [address] [place], [place] [id number] [place] Urea nitrogen [Mass/Vol] 21 mg/dL Normal 9-24 [facility] Comment on above: Order Comment: Speci men Type: BLOOD SPECIMEN Ordering Facility: [facility] Address: [address] [place] [address], [address] [place] [address] Performed By: #### 2 4321-2 #### [facility] CLIA [id number] [address] [place] [address] [place] Urine Cultureon 07-26-2024 URC Below infection level. Mixed Gram Pos Gram Neg Org Corder Count 1000-10,000 [facility]IX[facility] Mixed contaminants. Submit a new specimen if indicated. Normal [facility] Comment on above: Performed By: #### M 100.2200 #### [facility] [address] [place], [place], [address] Basic metabolic 2000 panelon 06-15-2024 Anion gap [Moles/Vol] 9 mmol/L Normal 8-15 [facility] Comment on above: Order Comment: Speci men Type: BLOOD SPECIMEN Ordering Facility: [facility] Address: [address] [place] [address] Performed By: #### 2 4321-2 #### [facility] CLIA [id number] [address] [place] [address] [place] Calcium [Mass/Vol] 9.2 mg/dL Normal 8.5-10.2 [facility] Comment on above: Order Comment: Speci men Type: BLOOD SPECIMEN Ordering Facility: [facility] Address: [address] [place] [address] Performed By: #### 2 4321-2 #### [facility] CLIA [id number] [address] [place] [address] [place] Chloride [Moles/Vol] 101 mmol/L Normal 98-107 [facility] Comment on above: Order Comment: Speci men Type: BLOOD SPECIMEN Ordering Facility: [facility] Address: [address] [place] [address] Performed By: #### 2 4321-2 #### [facility] CLIA [id number] [address] [place] [address] [place] CO2 [Moles/Vol] 28 mmol/L Normal 22-30 [facility] Comment on above: Order Comment: Speci men Type: BLOOD SPECIMEN Ordering Facility: [facility] Address: [address] [place] [address] Performed By: #### 2 4321-2 #### [facility] CLIA [id number] [address] [place] [address] [place] Creatinine [Mass/Vol] 1.11 mg/dL Normal 0.73-1.22 [facility] Comment on above: Order Comment: Rachael abundio Type: BLOOD SPECIMEN Ordering Facility: [facility] Address: [address] [place] [address] Performed By: #### 2 4321-2 #### [facility] CLIA [id number] [address] [place] [address] [facility] Creatinine and Glomerular filtration rate.predicted panel (S/P/Bld) 72 mL/min/1.73m??? Normal >=60 [facility] Comment on above: Order Comment: Rachael abundio Type: BLOOD SPECIMEN Ordering Facility: [facility] Address: [address] [place] [address] Result Comment: Luda mated Glomerular Filtration Rate (eGFR) is calculated using the 2020 CKD-EPI creatinine equation. This equation utilizes serum creatinine, sex, and age as parameters. The creatinine assay has traceable calibration to isotope dilution-mass spectrometry. Refer to KDIGO guidelines for clinical interpretation. In patients with unstable renal function, e.g. those with acute kidney injury, the eGFR may not accurately reflect actual GFR. Performed By: #### 2 4321-2 #### [facility] CLIA [id number] [address] [place] [address] [place] Glucose [Mass/Vol] 95 mg/dL Normal 74-99 [facility] Comment on above: Order Comment: Specaugusta abundio Type: BLOOD SPECIMEN Ordering Facility: [facility] Address: [address] [place] [address] Result Comment: The [place] Diabetes Association (ADA) provides guidance for cutoff values for fasting glucose and random glucose. The ADA defines fasting as no caloric intake for at least 8 hours. Fasting plasma glucose results between 100 to 125 mg/dL indicate increased risk for diabetes (prediabetes). Fasting plasma glucose results greater than or equal to 126 mg/dL meet the criteria for diagnosis of diabetes. In the absence of unequivocal hyperglycemia, results should be confirmed by repeat testing. In a patient with classic symptoms of hyperglycemia or hyperglycemic crisis, random plasma glucose results greater than or equal to 200 mg/dL meet the criteria for diagnosis of diabetes. Reference: Standards of Medical Care in Diabetes 2016, [place] Diabetes Association. Diabetes Care. 2016.39(Suppl 1). Performed By: #### 2 4321-2 #### [facility] CLIA [id number] [address] [place] [address] [place] Potassium [Moles/Vol] 4.7 mmol/L Normal 3.7-5.1 [facility] Comment on above: Order Comment: Speci men Type: BLOOD SPECIMEN Ordering Facility: [facility] Address: [address] [place] [address] Performed By: #### 2 4321-2 #### [facility] CLIA [id number] [address] [place] [address] [place] Sodium [Moles/Vol] 138 mmol/L Normal 136-144 [facility] Comment on above: Order Comment: Speci men Type: BLOOD SPECIMEN Ordering Facility: [facility] Address: [address] [place] [address] Performed By: #### 2 4321-2 #### [facility] CLIA [id number] [address] [place] [address] [place] Urea nitrogen [Mass/Vol] 24 mg/dL Normal 9-24 [facility] Comment on above: Order Comment: Speci men Type: BLOOD SPECIMEN Ordering Facility: [facility] Address: [address] [place] [address] Performed By: #### 2 4321-2 #### [facility] CLIA [id number] [address] [place] [address] [place] Basic metabolic 2000 panelon 05-04-2024 Anion gap [Moles/Vol] 9 mmol/L Normal 8-15 [facility] Comment on above: Order Comment: Speci men Type: BLOOD SPECIMEN Ordering Facility: [facility] Address: [address], [place] [address] Performed By: #### 2 4321-2 #### [facility] CLIA [id number] [address] [place] [address] [place] Calcium [Mass/Vol] 8.7 mg/dL Normal 8.5-10.2 [facility] Comment on above: Order Comment: Speci men Type: BLOOD SPECIMEN Ordering Facility: [facility] Address: [address] [place] [address] Performed By: #### 2 4321-2 #### [facility] CLIA [id number] [address] [place] [address] [place] Chloride [Moles/Vol] 103 mmol/L Normal 98-107 [facility] Comment on above: Order Comment: Speci men Type: BLOOD SPECIMEN Ordering Facility: [facility] Address: [address] [place] [address] Performed By: #### 2 4321-2 #### [facility] CLIA [id number] [address] [place] [address] [place] CO2 [Moles/Vol] 27 mmol/L Normal 22-30 [facility] Comment on above: Order Comment: Speci men Type: BLOOD SPECIMEN Ordering Facility: [facility] Address: [address] [place] [address] Performed By: #### 2 4321-2 #### [facility] CLIA [id number] [address] [place] [address] [place] Creatinine [Mass/Vol] 1.04 mg/dL Normal 0.73-1.22 [facility] Comment on above: Order Comment: Speci men Type: BLOOD SPECIMEN Ordering Facility: [facility] Address: [address] [place] [address] Performed By: #### 2 4321-2 #### [facility] CLIA [id number] [address] [place] [address] [place] Creatinine and Glomerular filtration rate.predicted panel (S/P/Bld) 78 mL/min/1.73m??? Normal >=60 [facility] Comment on above: Order Comment: Rachael del castillo Type: BLOOD SPECIMEN Ordering Facility: [facility] Address: [address] [place] [address], [address] [place] [address] Result Comment: Luda mated Glomerular Filtration Rate (eGFR) is calculated using the 2020 CKD-EPI creatinine equation. This equation utilizes serum creatinine, sex, and age as parameters. The creatinine assay has traceable calibration to isotope dilution-mass spectrometry. Refer to KDIGO guidelines for clinical interpretation. In patients with unstable renal function, e.g. those with acute kidney injury, the eGFR may not accurately reflect actual GFR. Performed By: #### 2 4321-2 #### [facility] CLIA [id number] [address] [place], [place] [address] [place] Glucose [Mass/Vol] 128 mg/dL High 74-99 [facility] Comment on above: Order Comment: Rachael del castillo Type: BLOOD SPECIMEN Ordering Facility: [facility] Address: [address] [place] [address], [address] [place] [address] Result Comment: The [place] Diabetes Association (ADA) provides guidance for cutoff values for fasting glucose and random glucose. The ADA defines fasting as no caloric intake for at least 8 hours. Fasting plasma glucose results between 100 to 125 mg/dL indicate increased risk for diabetes (prediabetes). Fasting plasma glucose results greater than or equal to 126 mg/dL meet the criteria for diagnosis of diabetes. In the absence of unequivocal hyperglycemia, results should be confirmed by repeat testing. In a patient with classic symptoms of hyperglycemia or hyperglycemic crisis, random plasma glucose results greater than or equal to 200 mg/dL meet the criteria for diagnosis of diabetes. Reference: Standards of Medical Care in Diabetes 2016, [place] Diabetes Association. Diabetes Care. 2016.39(Suppl 1). Performed By: #### 2 4321-2 #### [facility] CLIA [id number] [address] [place], [place] [id number] [place] Potassium [Moles/Vol] 4.4 mmol/L Normal 3.7-5.1 [facility] Comment on above: Order Comment: Rachael del castillo Type: BLOOD SPECIMEN Ordering Facility: [facility] Address: [address] [place] [address] [place] [address] Performed By: #### 2 4321-2 #### [facility] CLIA [id number] [address] [place] [address] [place] Sodium [Moles/Vol] 139 mmol/L Normal 136-144 [facility] Comment on above: Order Comment: Speci men Type: BLOOD SPECIMEN Ordering Facility: [facility] Address: [address] [place] [address], [address] [place], [place] [address] Performed By: #### 2 4321-2 #### [facility] CLIA [id number] [address] [place] [address] [place] Urea nitrogen [Mass/Vol] 18 mg/dL Normal 9-24 [facility] Comment on above: Order Comment: Speci men Type: BLOOD SPECIMEN Ordering Facility: [facility] Address: [address] [place] [address], [address] [place], [place] [address] Performed By: #### 2 4321-2 #### [facility] CLIA [id number] [address] [place] [address] [place] Basic metabolic 2000 panelon 04-13-2024 Anion gap [Moles/Vol] 10 mmol/L Normal 8-15 [facility] Comment on above: Order Comment: Speci men Type: BLOOD SPECIMEN Ordering Facility: [facility] Address: [address] [place] [address], [address] [place], [place] [address] Performed By: #### 2 4321-2 #### [facility] CLIA [id number] [address] [place] [address] [place] Calcium [Mass/Vol] 9.0 mg/dL Normal 8.5-10.2 [facility] Comment on above: Order Comment: Speci men Type: BLOOD SPECIMEN Ordering Facility: [facility] Address: [address] [place] [address], [address] [place] [address] Performed By: #### 2 4321-2 #### [facility] CLIA [id number] [address] [place] [address] [place] Chloride [Moles/Vol] 101 mmol/L Normal 98-107 [facility] Comment on above: Order Comment: Speci men Type: BLOOD SPECIMEN Ordering Facility: [facility] Address: [address] [place] [address] Performed By: #### 2 4321-2 #### [facility] CLIA [id number] [address] [place] [address] [place] CO2 [Moles/Vol] 25 mmol/L Normal 22-30 [facility] Comment on above: Order Comment: Speci men Type: BLOOD SPECIMEN Ordering Facility: [facility] Address: [address] [place] [address] Performed By: #### 2 4321-2 #### [facility] CLIA [id number] [address] [place] [address] [place] Creatinine [Mass/Vol] 1.08 mg/dL Normal 0.73-1.22 [facility] Comment on above: Order Comment: Speci men Type: BLOOD SPECIMEN Ordering Facility: [facility] Address: [address] [place] [address] Performed By: #### 2 4321-2 #### [facility] CLIA [id number] [address] [place] [address] [facility] [place] Creatinine and Glomerular filtration rate.predicted panel (S/P/Bld) 74 mL/min/1.73m??? Normal >=60 [facility] Comment on above: Order Comment: Speci men Type: BLOOD SPECIMEN Ordering Facility: [facility] Address: [address] [place] [address] Result Comment: Luda mated Glomerular Filtration Rate (eGFR) is calculated using the 2020 CKD-EPI creatinine equation. This equation utilizes serum creatinine, sex, and age as parameters. The creatinine assay has traceable calibration to isotope dilution-mass spectrometry. Refer to KDIGO guidelines for clinical interpretation. In patients with unstable renal function, e.g. those with acute kidney injury, the eGFR may not accurately reflect actual GFR. Performed By: #### 2 4321-2 #### [facility] CLIA [id number] [address] [place] [address] [place] Glucose [Mass/Vol] 131 mg/dL High 74-99 [facility] Comment on above: Order Comment: Speci men Type: BLOOD SPECIMEN Ordering Facility: [facility] Address: [address] [place] [address], [address] [place] [address] Result Comment: The [place] Diabetes Association (ADA) provides guidance for cutoff values for fasting glucose and random glucose. The ADA defines fasting as no caloric intake for at least 8 hours. Fasting plasma glucose results between 100 to 125 mg/dL indicate increased risk for diabetes (prediabetes). Fasting plasma glucose results greater than or equal to 126 mg/dL meet the criteria for diagnosis of diabetes. In the absence of unequivocal hyperglycemia, results should be confirmed by repeat testing. In a patient with classic symptoms of hyperglycemia or hyperglycemic crisis, random plasma glucose results greater than or equal to 200 mg/dL meet the criteria for diagnosis of diabetes. Reference: Standards of Medical Care in Diabetes 2016, [place] Diabetes Association. Diabetes Care. 2016.39(Suppl 1). Performed By: #### 2 4321-2 #### [employer] [facility] CLIA [id number] [address] [place] [address] [place] Potassium [Moles/Vol] 4.3 mmol/L Normal 3.7-5.1 [facility] Comment on above: Order Comment: Speci men Type: BLOOD SPECIMEN Ordering Facility: [facility] Address: [address] [place] [address], [address] [place] [address] Performed By: #### 2 4321-2 #### [facility] CLIA [id number] [address] [place] [address] [place] Sodium [Moles/Vol] 136 mmol/L Normal 136-144 [facility] Comment on above: Order Comment: Speci men Type: BLOOD SPECIMEN Ordering Facility: [facility] Address: [address] [place] [address], [address] [place], [place] [address] Performed By: #### 2 4321-2 #### [facility] CLIA [id number] [address] [place] [address] [place] Urea nitrogen [Mass/Vol] 21 mg/dL Normal 9-24 [facility] Comment on above: Order Comment: Speci men Type: BLOOD SPECIMEN Ordering Facility: [facility] Address: [address] [place] [address], [address], [place] [address] Performed By: #### 2 4321-2 #### [facility] CLIA [id number] [address] [place] [address] [place] Absolute lymphocyte countOrd ered By: Manny Golden on 01-06-2024 Lymphocytes Auto (Unsp spec) [#/Vol] 1.97 10*3/uL 0.83-4.51 [facility] Automated lymphocyte count a s percentage of total leukocytesOrdered By: Manny Golden on 01-06-2024 Lymphocytes/100 WBC Auto (Unsp spec) 24.1 % 19-41 [facility] Basophil percentageOrdered B y: Manny Golden on 01-06-2024 Basophils/100 WBC (Bld) 0.6 % 0-1 [facility] Bilirubin [Mass/Vol] 0.30 mg/dL 0.20-1.00 [facility] Comment on above: For patients on eltr ombopag therapy, use of Dimension [place] TBIL is not recommended. Chloride [Moles/Vol] 103 mmol/L 98-107 [facility] Cholesterol [Mass/Vol] 145 mg/dL <200 [facility] Comment on above: <200 mg/dL Desirable 200-240 mg/dL Borderline >240 mg/dL High Risk Eosinophils/100 WBC (Bld) 4.9 % 0-5 [facility] Glucose [Mass/Vol] 98 mg/dL 74-106 [facility] Hemoglobin (Bld) [Mass/Vol] 15.5 g/dL 13.0-16.5 [facility] Monocytes/100 WBC (Bld) 7.8 % 0-10 [facility] Neutrophils (Bld) [#/Vol] 5.1 10*3/uL 2.0-7.7 [facility] Neutrophils/100 WBC (Bld) 62.1 % 47-70 [facility] Potassium [Moles/Vol] 4.4 mmol/L 3.5-5.1 [facility] Protein [Mass/Vol] 7.6 g/dL 6.4-8.2 [facility] Sodium [Moles/Vol] 138 mmol/L 136-145 [facility] Triglyceride [Mass/Vol] 182 mg/dL <199 [facility] Comment on above: The drugs N-Acetylcy steine and Metamizole may falsely depress this assay.Serum Triglycerides Reference Interval Normal <150 mg/dL Borderline high 150 - 199 mg/dL High 200 - 499 mg/dL Very High > or = 500 mg/dL WBC (Bld) [#/Vol] 8.2 10*3/uL 4.4-11.0 [facility] Determination of erythrocyte mean corpuscular volume (MCV)Ordered By: Manny Golden on 01-06-2024 MCV (RBC) [Entitic vol] 94.8 fL 80-94 [facility] Erythrocyte distribution wid th ratioOrdered By: Manny Golden on 01-06-2024 Erythrocyte distribution width (RBC) [Ratio] 13.1 % 11.6-14.6 [facility] Erythrocyte distribution wid th standard deviationOrdered By: Manny Golden on 01-06-2024 Erythrocyte distribution width (RBC) [Entitic vol] 45.7 fL 35.1-43.9 [facility] Hematocrit Auto (Bld) [Volum e fraction]Ordered By: Manny Golden on 01-06-2024 Hematocrit (Bld) [Volume fraction] 47.5 % 40-54 [facility] Immature granulocytes/100 WB C Auto (Bld)Ordered By: Manny Golden on 01-06-2024 Immature granulocytes/100 WBC (Bld) 0.500 % 0.0-0.9 [facility] Comment on above: IG% - Immature Granu locytes (promyelocytes, myelocytes and metamyelocytes) > 1% indicates that a LEFT SHIFT is Present. Laboratory - Chemistry and C hemistry - challengeOrdered By: Manny Golden on 01-06-2024 Albumin/Globulin [Mass ratio] 1.1 {ratio} 0.9-2.4 [facility] ALP [Catalytic activity/Vol] 54 U/L 45-117 [facility] ALT [Catalytic activity/Vol] 42 U/L 16-61 [facility] Cholesterol in HDL [Mass/Vol] 39 mg/dL >40 [facility] Comment on above: The drugs N-Acetylcy steine and Metamizole may falsely depress this assay. Reference Range HDL <40 mg/dL Low HDL Cholesterol HDL >or= 60 mg/dL High HDL Cholesterol Cholesterol in LDL [Mass/Vol] 70 mg/dL 0-130 [facility] CO2 [Moles/Vol] 29.0 mmol/L 21.0-32.0 [facility] Globulin (S) [Mass/Vol] 3.6 g/dL 2.2-4.2 [facility] Urea nitrogen/Creatinine [Mass ratio] 22.3 mg/mg 10-20 [facility] Laboratory - Hematology and Cell countsOrdered By: Manny Golden on 01-06-2024 MCH (RBC) [Entitic mass] 30.9 pg 27.0-32.0 [facility] MCHC (RBC) [Mass/Vol] 32.6 g/dL 32-36 [facility] Nucleated RBC/100 WBC (Bld) [Ratio] 0 % 0-5 [facility] Platelet mean volume (Bld) [Entitic vol] 12.6 fL 6.2-12.0 [facility] Platelets (Bld) [#/Vol] 147 10*3/uL 150-450 [facility] No Panel InformationOrdered By: Manny Golden on 01-06-2024 Estimated GFR (MDRD) Amer 84 mL/min >60 [facility] Comment on above: GFR Calc Estimated GFR (MDRD) Non-Af Amer 69 mL/min >60 [facility] Comment on above: Non- GFR Calc VLDL Cholesterol 36 mg/dL 5-40 [facility] RBC Auto (Bld) [#/Vol]Ordere d By: Manny Golden on 01-06-2024 RBC (Bld) [#/Vol] 5.01 10*6/uL 4.6-6.2 [facility] Serum or plasma calcium parish urement (mass/volume)Ordered By: Manny Golden on 03-18-2024 Calcium [Mass/Vol] 9.5 mg/dL 8.5-10.1 [facility] Serum or plasma creatinine m easurement (mass/volume)Ordered By: Manny Golden on 01-06-2024 Creatinine [Mass/Vol] 1.12 mg/dL 0.70-1.30 [facility] Comment on above: The validity of the calculated GFR & GFRAA in patients over 70 years has not been determined. Clinical correlation is essential. Serum or plasma thyroid stim ulating hormone (TSH) measurement (units/volume)Ordered By: Manny Golden on 01-06-2024 TSH Qn 4.28 uIU/mL 0.358-3.74 [facility] Serum or plasma urea nitroge n measurement (mass/volume)Ordered By: Manny Golden on 01-06-2024 Urea nitrogen [Mass/Vol] 25 mg/dL 7-18 [facility] Thin prep Papanicolaou smear with manual screeningOrdered By: Manny Golden on 01-06-2024 Thin prep Papanicolaou smear with manual screening 4.0 g/dL 3.2-5.0 [facility] Thin prep Papanicolaou smear with manual screening 27 U/L 15-37 [facility] Thin prep Papanicolaou smear with manual screening 6 5-15 [facility] Whole blood hemoglobin A1c/t otal hemoglobin ratio (mass fraction)Ordered By: Manny Golden on 01-06-2024 HbA1c (Bld) [Mass fraction] 6.0 % 3.8-5.6 [facility] Comment on above: Normal < 5.7 % Predi abetic 5.7 - 6.4 % Diabetic >or= 6.5 % Please note range changes. Laboratory - Chemistry and C hemistry - challengeon 12-12-2023 Bilirubin Ql (U) Negative [facility] Glucose Ql (U) Negative [facility] Ketones Ql (U) Negative [facility] pH (U) 6.0 [pH] [facility] Specific gravity (U) [Rel density] 1.025 [facility] Urobilinogen (U) [Mass/Vol] 0.3803484 mg/dL [facility] Laboratory - Hematology and Cell countson 12-12-2023 Hemoglobin Ql (U) Small [facility] Laboratory - Specimen inform ationon 12-12-2023 Clarity (U) Cloudy [facility] Laboratory - Urinalysison Nitrite Ql (U) Positive [facility] Protein Ql (U) Negative [facility] No Panel Informationon 12-12 Urine Leukocytes Positive [facility] CNPNon 09-26-2023 CNPN Telephone (AKURFL) ---- EDWARD DUFFY ([id number]) 1955 M Date Time Provider Department 09/26/23 KHADAR OVALLE During your visit today, we recorded the following information about you: Benny Koehler Cma 09/26/2023 11:20 AM Signed Patient called to inform Dr. Ovalle that he is ready for the referral with Dr. Blue at [facility]. Benny Koehler Cma Allergies As of Date: 09/26/2023 Noted Allergy Reaction TRIMETHOPRIM 08/06/2018 16 - Unknown DIPHENHYDRAMINE 08/06/2018 1 - Mental Status Change 14 - Other: See Comments Comments: Heart rate speeds up and slows down CODEINE 03/22/2020 16 - Unknown PENICILLIN G 06/24/2012 16 - Unknown Comments: Has tolerated cephalosporins and oral pencillin. States reactions was only to IV penicillin PERCOCET (OXYCODONE-ACETAMIN OPHEN)06/24/2012 16 - Unknown SULFA (SULFONAMIDE ANTIBIOTICS) 03/20/2011 16 - Unknown VICODIN (HYDROCODONE-ACETAM INOPHE*12/02/2019 16 - Unknown Date Reviewed: 08/07/2023 Reviewed by: Kallie Latham MA - Fully Assessed Reason for Visit: Patient Update [1234] Prescriptions as of 09/26/2023 - cefdinir (OMNICEF) 300 mg capsule Take 1 capsule by mouth twice daily. - oxybutynin ER (DITROPAN XL) 10 mg 24 hr tablet take 1 tablet by mouth once daily - tamsulosin ER (FLOMAX) 0.4 mg Take 2 capsules by mouth daily at bedtime. - multivitamin tablet Take 1 tablet by mouth once daily. - Ascorbic Acid (VITAMIN C) 1,000 mg tablet Take 1,000 mg by mouth once daily. - phenazopyridine HCl (AZO ORAL) Take 1,000 mg by mouth once daily. - docosahexaenoic acid/epa (FISH OIL ORAL) Take 1,000 mg by mouth. Pt takes 3 in the morning - VENTOLIN HFA 90 mcg/actuation inhaler - sildenafil (REVATIO) 20 mg tablet TAKE 2-5 TABLETS BY MOUTH DIRECTED 1/2 HOUR PRIOR TO SEXUAL ACTIVITY - aspirin, enteric coated (ASPIRIN, ENTERIC COATED) 81 mg EC tablet 81 mg. - benazepril (LOTENSIN) 10 mg tablet Take 10 mg by mouth once daily. - cyanocobalamin (VITAMIN B-12) 100 mcg tab Vitamin B 12 cyanocobalamin (vit B-12) 100 mcg tablet Active 100 MCG DAILY August 06, 2018 2:34pm 08-06-2018 [facility] ([id number]) - levothyroxine (SYNTHROID) 175 mcg tablet 200 mcg. - simvastatin (ZOCOR) 20 mg tablet Take 20 mg by mouth daily at bedtime. - darifenacin ER (ENABLEX) 15 mg 24 hr tablet take 1 tablet by mouth once daily Meds Comments as of 02/18/2020: Unable to assess, patient will bring a list at his appointment next week. 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.919] 04/07/2020 Epididymo-orchitis [N45.3] 02/13/2021 Pyocele [N43.1] 02/13/2021 Acute cystitis without hematuria [N30.00] 02/13/2021 Encounter Status:Closed by TAD BENNY AKBAR on 09/26/23 Normal [facility] UA DIP, URINE (POC)on 2022 BILIRUBIN UA (POCT) Negative Negative [facility] CLARITY UA (POCT) Clear [place] COLOR UA (POCT) Yellow [facility] GLUCOSE UA (POCT) Negative Negative mg/dL [facility] Hemoglobin Ql (U) Negative Negative [place] KETONE UA (POCT) Negative Negative mg/dL [facility] LEUKOCYTES UA (POCT) Negative Negative [facility] NITRITE UA (POCT) Negative Negative [place] PH UA (POCT) 6.5 4.5 - 8.0 [facility] Protein Ql (U) Negative Negative mg/dL [facility] SPECIFIC GRAVITY UA (POCT) 1.015 1.005 - 1.030 [facility] UROBILINOGEN UA (POCT) 0.2 E.U./dL [place] [facility] E.U./dL [facility] Culture, urineOrdered By: Do ra Golden on 06-20-2023 Bacteria identified Cx Nom (U) Escherichia coli [facility] Laboratory - Chemistry and C hemistry - challengeon 06-20-2023 Bilirubin Ql (U) Negative [facility] Glucose Ql (U) Negative [facility] Ketones Ql (U) Negative [facility] pH (U) 6.0 [pH] [facility] Specific gravity (U) [Rel density] 1.025 [facility] Urobilinogen (U) [Mass/Vol] 0.3104485 mg/dL [facility] Laboratory - Hematology and Cell countson 06-20-2023 Hemoglobin Ql (U) Trace [facility] Laboratory - Specimen inform ationon 06-20-2023 Clarity (U) Cloudy [facility] Color (U) KORINA [facility] Laboratory - Urinalysison Nitrite Ql (U) Positive [facility] Protein Ql (U) Negative [facility] No Panel Informationon 06-20 Urine Leukocytes Positive [facility] Urine Non-Hemolyzed Blood Trace [facility] Culture, urineOrdered By: Do ra Golden on 04-03-2023 Bacteria identified Cx Nom (U) Escherichia coli [facility] Culture, urineOrdered By: Do ra Golden on 12-14-2022 Bacteria identified Cx Nom (U) Staphylococcus epidermidis [facility] Absolute lymphocyte countOrd ered By: Manny Golden on 12-11-2022 Lymphocytes Auto (Unsp spec) [#/Vol] 2.10 10*3/uL 0.83-4.51 [facility] Basophil percentageOrdered B y: Manny Golden on 12-11-2022 Basophils/100 WBC (Bld) 0.8 % 0-1 [facility] Bilirubin [Mass/Vol] 0.20 mg/dL 0.20-1.00 [facility] Comment on above: For patients on eltr ombopag therapy, use of Dimension [place] TBIL is not recommended. Chloride [Moles/Vol] 104 mmol/L 98-107 [facility] Cholesterol [Mass/Vol] 144 mg/dL <200 [facility] Comment on above: <200 mg/dL Desirable 200-240 mg/dL Borderline >240 mg/dL High Risk Eosinophils/100 WBC (Bld) 7.5 % 0-5 [facility] Glucose [Mass/Vol] 88 mg/dL 74-106 [facility] Neutrophils (Bld) [#/Vol] 5.1 10*3/uL 2.0-7.7 [facility] Neutrophils/100 WBC (Bld) 59.9 % 47-70 [facility] Potassium [Moles/Vol] 4.7 mmol/L 3.5-5.1 [facility] Protein [Mass/Vol] 7.5 g/dL 6.4-8.2 [facility] Sodium [Moles/Vol] 138 mmol/L 136-145 [facility] Triglyceride [Mass/Vol] 154 mg/dL <199 [facility] Comment on above: The drugs N-Acetylcy steine and Metamizole may falsely depress this assay.Serum Triglycerides Reference Interval Normal <150 mg/dL Borderline high 150 - 199 mg/dL High 200 - 499 mg/dL Very High > or = 500 mg/dL WBC (Bld) [#/Vol] 8.6 10*3/uL 4.4-11.0 [facility] Blood erythrocytes count (nu mber/volume)Ordered By: Manny Golden on 12-11-2022 RBC (Bld) [#/Vol] 4.81 10*6/uL 4.6-6.2 [facility] Blood hemoglobin measurement (mass/volume)Ordered By: Manny Golden on 12-11-2022 Hemoglobin (Bld) [Mass/Vol] 15.0 g/dL 13.0-16.5 [facility] Blood lymphocytes/100 leukoc ytesOrdered By: Manny Golden on 12-11-2022 Lymphocytes/100 WBC (Bld) 24.5 % 19-41 [facility] Blood monocytes/100 leukocyt esOrdered By: Manny Golden on 12-11-2022 Monocytes/100 WBC (Bld) 6.9 % 0-10 [facility] Blood platelet mean volumeOr dered By: Manny Golden on 12-11-2022 Platelet mean volume (Bld) [Entitic vol] 12.5 fL 6.2-12.0 [facility] Determination of erythrocyte mean corpuscular volume (MCV)Ordered By: Manny Golden on 12-11-2022 MCV (RBC) [Entitic vol] 96.0 fL 80-94 [facility] Hematocrit Auto (Bld) [Volum e fraction]Ordered By: Manny Golden on 12-11-2022 Hematocrit (Bld) [Volume fraction] 46.2 % 40-54 [facility] Laboratory - Chemistry and C hemistry - challengeOrdered By: Manny Golden on 12-11-2022 ALP [Catalytic activity/Vol] 55 U/L 45-117 [facility] ALT [Catalytic activity/Vol] 42 U/L 16-61 [facility] CO2 [Moles/Vol] 29.0 mmol/L 21.0-32.0 [facility] Globulin (S) [Mass/Vol] 3.5 g/dL 2.2-4.2 [facility] Urea nitrogen/Creatinine [Mass ratio] 17.1 mg/mg 10-20 [facility] Laboratory - Chemistry and C hemistry - challengeon 12-11-2022 Bilirubin Ql (U) Negative [facility] Glucose Ql (U) Negative [facility] Ketones Ql (U) Negative [facility] pH (U) 6.0 [pH] [facility] Specific gravity (U) [Rel density] 1.020 [facility] Urobilinogen (U) [Mass/Vol] 0.9407835 mg/dL [facility] Laboratory - Hematology and Cell countsOrdered By: Manny Golden on 12-11-2022 Erythrocyte distribution width (RBC) [Entitic vol] 46.6 fL 35.1-43.9 [facility] Erythrocyte distribution width (RBC) [Ratio] 13.1 % 11.6-14.6 [facility] Immature granulocytes/100 WBC (Bld) 0.400 % 0.0-0.9 [facility] Comment on above: IG% - Immature Granu locytes (promyelocytes, myelocytes and metamyelocytes) > 1% indicates that a LEFT SHIFT is Present. MCH (RBC) [Entitic mass] 31.2 pg 27.0-32.0 [facility] Nucleated RBC/100 WBC (Bld) [Ratio] 0 % 0-5 [facility] Laboratory - Hematology and Cell countson 12-11-2022 Hemoglobin Ql (U) Negative [facility] Laboratory - Specimen inform ationon 12-11-2022 Clarity (U) Clear [facility] Color (U) YELLOW [facility] Laboratory - Urinalysison Nitrite Ql (U) Negative [facility] Protein Ql (U) Negative [facility] MCHC Auto (RBC) [Mass/Vol]Or dered By: Manny Golden on 12-11-2022 MCHC (RBC) [Mass/Vol] 32.5 g/dL 32-36 [facility] No Panel InformationOrdered By: Manny Golden on 12-11-2022 Estimated GFR (MDRD) Amer 75 mL/min >60 [facility] Comment on above: GFR Calc Estimated GFR (MDRD) Non-Af Amer 62 mL/min >60 [facility] Comment on above: Non- GFR Calc Prostate Specific Antigen Total 1.63 ng/mL 0.0-4.0 [facility] Comment on above: This test was perfor med using the TPSA assay method [facility]. Values obtained with differentassay methods cannot be used interchangably.When changing PSA assays in the course of monitoring apatient, additional sequential testing should be carriedout to confirm baseline values. Thyroid Stimulating Hormone (TSH) 6.40 uIU/mL 0.358-3.74 [facility] No Panel Informationon 12-11 Urine Leukocytes Positive [facility] Urine Non-Hemolyzed Blood Non-Hemolyzed [facility] Platelets bldOrdered By: Dwight Golden on 12-11-2022 Platelets (Bld) [#/Vol] 141 10*3/uL 150-450 [facility] Serum or plasma albumin parish urement (mass/volume)Ordered By: Manny Golden on 12-11-2022 Albumin [Mass/Vol] 4.0 g/dL 3.2-5.0 [facility] Serum or plasma albumin/glob ulin mass ratioOrdered By: Manny Golden on 12-11-2022 Albumin/Globulin [Mass ratio] 1.1 {ratio} 0.9-2.4 [facility] Serum or plasma calcium parish urement (mass/volume)Ordered By: Manny Golden on 12-11-2022 Calcium [Mass/Vol] 9.2 mg/dL 8.5-10.1 [facility] Serum or plasma cholesterol in HDL measurement (mass/volume)Ordered By: Manny Golden on 12-11-2022 Cholesterol in HDL [Mass/Vol] 40 mg/dL >40 [facility] Comment on above: The drugs N-Acetylcy steine and Metamizole may falsely depress this assay. Reference Range HDL <40 mg/dL Low HDL Cholesterol HDL >or= 60 mg/dL High HDL Cholesterol Serum or plasma cholesterol in VLDL measurement (mass/volume)Ordered By: Manny Golden on 12-11-2022 Cholesterol in VLDL [Mass/Vol] 31 mg/dL 5-40 [facility] Serum or plasma creatinine m easurement (mass/volume)Ordered By: Manny Golden on 12-11-2022 Creatinine [Mass/Vol] 1.23 mg/dL 0.70-1.30 [facility] Comment on above: The validity of the calculated GFR & GFRAA in patients over 70 years has not been determined. Clinical correlation is essential. Serum or plasma low density lipoprotein (LDL) cholesterol measurement (mass/volume)Ordered By: Manny Golden on 12-11-2022 Cholesterol in LDL [Mass/Vol] 73 mg/dL 0-130 [facility] Serum or plasma urea nitroge n measurement (mass/volume)Ordered By: Manny Golden on 12-11-2022 Urea nitrogen [Mass/Vol] 21 mg/dL 7-18 [facility] Thin prep Papanicolaou smear with manual screeningOrdered By: Manny Golden on 12-11-2022 Thin prep Papanicolaou smear with manual screening 26 U/L 15-37 [facility] Thin prep Papanicolaou smear with manual screening 5 5-15 [facility] Glucose Glucometer (BldC) [M ass/Vol]on 01-30-2022 Glucose [Mass/Vol] 177 mg/dL 74-106 [facility] Work Phone: Comment on above: MANAGEMENT OF PATIEN T CARE PER NURSING PROTOCOL No Panel Informationon 01-25 Fructosamine 245 umol/L 0-285 [facility] Work Phone: Comment on above: Published reference interval for apparently healthysubjects between age 20 and 60 is 205 - 285 umol/L and in apoorly controlled diabetic population is 228 - 563 umol/Lwith a mean of 396 umol/L.Performed at: [facility] [id number] Director: Edgar Barbosa PhD, Phone: [phone] Absolute lymphocyte counton 01-19-2022 Lymphocytes Auto (Unsp spec) [#/Vol] 2.02 10*3/uL 0.83-4.51 [facility] Work Phone: Basophil percentageon 2021 Basophils/100 WBC (Bld) 0.8 % 0-1 [facility] Work Phone: Chloride [Moles/Vol] 105 mmol/L 98-107 [facility] Work Phone: Eosinophils/100 WBC (Bld) 6.7 % 0-5 [facility] Work Phone: Glucose [Mass/Vol] 107 mg/dL 74-106 [facility] Work Phone: Comment on above: Fasting Glucose resu lt from 100 to 125 mg/dL suggests IMPAIRED HOMEOSTASIS per A.D.A. criteria. Neutrophils (Bld) [#/Vol] 4.6 10*3/uL 2.0-7.7 [facility] Work Phone: Neutrophils/100 WBC (Bld) 59.0 % 47-70 [facility] Work Phone: [phone] Potassium [Moles/Vol] 4.8 mmol/L 3.5-5.1 [facility] Work Phone: [phone] Sodium [Moles/Vol] 138 mmol/L 136-145 [facility] Work Phone: [phone] WBC (Bld) [#/Vol] 7.8 10*3/uL 4.4-11.0 [facility] Work Phone: [phone] Blood erythrocytes count (nu mber/volume)on 01-19-2022 RBC (Bld) [#/Vol] 4.68 10*6/uL 4.6-6.2 [facility] Work Phone: [phone] Blood hemoglobin measurement (mass/volume)on 01-19-2022 Hemoglobin (Bld) [Mass/Vol] 14.4 g/dL 13.0-16.5 [facility] Work Phone: Blood lymphocytes/100 leukoc yteson 01-19-2022 Lymphocytes/100 WBC (Bld) 26.0 % 19-41 [facility] Work Phone: [phone] Blood monocytes/100 leukocyt eson 01-19-2022 Monocytes/100 WBC (Bld) 6.9 % 0-10 [facility] Work Phone: [phone] Blood platelet mean volumeon 01-19-2022 Platelet mean volume (Bld) [Entitic vol] 11.3 fL 6.2-12.0 [facility] Work Phone: [phone] Determination of erythrocyte mean corpuscular volume (MCV)on 01-19-2022 MCV (RBC) [Entitic vol] 94.2 fL 80-94 [facility] Work Phone: Hematocrit Auto (Bld) [Volum e fraction]on 01-19-2022 Hematocrit (Bld) [Volume fraction] 44.1 % 40-54 [facility] Work Phone: [phone] INR in Blood by Coagulation assayon 01-19-2022 INR Coag (Bld) [Relative time] 1.0 {INR} [facility] Work Phone: [phone] Laboratory - Chemistry and C hemistry - challengeon 01-19-2022 CO2 [Moles/Vol] 32.0 mmol/L 21.0-32.0 [facility] Work Phone: [phone] Urea nitrogen/Creatinine [Mass ratio] 16.0 mg/mg 10-20 [facility] Work Phone: [phone] Magnesium [Mass/Vol] 2.2 mg/dL 1.6-2.6 [facility] Work Phone: [phone] Laboratory - Coagulationon 0 01-19-2022 aPTT Coag (Bld) [Time] 33.1 s 24.1-36.2 [facility] Work Phone: [phone] PT Coag (PPP) [Time] 12.9 s 11.7-14.9 [facility] Work Phone: [phone] Laboratory - Hematology and Cell countson 01-19-2022 Erythrocyte distribution width (RBC) [Entitic vol] 45.5 fL 35.1-43.9 [facility] Work Phone: [phone] Erythrocyte distribution width (RBC) [Ratio] 13.2 % 11.6-14.6 [facility] Work Phone: [phone] Immature granulocytes/100 WBC (Bld) 0.600 % 0.0-0.9 [facility] Work Phone: Comment on above: IG% - Immature Granu locytes (promyelocytes, myelocytes and metamyelocytes) > 1% indicates that a LEFT SHIFT is Present. MCH (RBC) [Entitic mass] 30.8 pg 27.0-32.0 [facility] Work Phone: Nucleated RBC/100 WBC (Bld) [Ratio] 0 % 0-5 [facility] Work Phone: [phone] MCHC Auto (RBC) [Mass/Vol]on 01-19-2022 MCHC (RBC) [Mass/Vol] 32.7 g/dL 32-36 [facility] Work Phone: No Panel Informationon 01-19 Estimated GFR (MDRD) Amer 70 mL/min >60 [facility] Work Phone: Comment on above: GFR Calc Estimated GFR (MDRD) Non-Af Amer 58 mL/min >60 [facility] Work Phone: Comment on above: Non- GFR Calc Nasal Screen MRSA/MSSA [facility] Work Phone: [phone] Thyroid Stimulating Hormone (TSH) 5.13 uIU/mL 0.358-3.74 [facility] Work Phone: Platelets bldon 01-19-2022 Platelets (Bld) [#/Vol] 171 10*3/uL 150-450 [facility] Work Phone: Serum or plasma calcium parish urement (mass/volume)on 01-19-2022 Calcium [Mass/Vol] 9.0 mg/dL 8.5-10.1 [facility] Work Phone: Serum or plasma creatinine m easurement (mass/volume)on 01-19-2022 Creatinine [Mass/Vol] 1.31 mg/dL 0.70-1.30 [facility] Work Phone: Comment on above: The validity of the calculated GFR & GFRAA in patients over 70 years has not been determined. Clinical correlation is essential. Serum or plasma urea nitroge n measurement (mass/volume)on 01-19-2022 Urea nitrogen [Mass/Vol] 21 mg/dL 7-18 [facility] Work Phone: Thin prep Papanicolaou smear with manual screeningon 01-19-2022 Thin prep Papanicolaou smear with manual screening 1 5-15 [facility] Work Phone: [phone] Absolute lymphocyte counton 12-18-2021 Lymphocytes Auto (Unsp spec) [#/Vol] 2.44 10*3/uL 0.83-4.51 [facility] Work Phone: Basophil percentageon 2021 Basophils/100 WBC (Bld) 0.7 % 0-1 [facility] Work Phone: Bilirubin [Mass/Vol] 0.20 mg/dL 0.20-1.00 [facility] Work Phone: Comment on above: For patients on eltr ombopag therapy, use of Dimension [place] TBIL is not recommended. Chloride [Moles/Vol] 107 mmol/L 98-107 [facility] Work Phone: Cholesterol [Mass/Vol] 145 mg/dL <200 [facility] Work Phone: Comment on above: <200 mg/dL Desirable 200-240 mg/dL Borderline >240 mg/dL High Risk Eosinophils/100 WBC (Bld) 6.2 % 0-5 [facility] Work Phone: Glucose [Mass/Vol] 90 mg/dL 74-106 [facility] Work Phone: Neutrophils (Bld) [#/Vol] 5.6 10*3/uL 2.0-7.7 [facility] Work Phone: Neutrophils/100 WBC (Bld) 59.6 % 47-70 [facility] Work Phone: Potassium [Moles/Vol] 4.8 mmol/L 3.5-5.1 [facility] Work Phone: Protein [Mass/Vol] 7.4 g/dL 6.4-8.2 [facility] Work Phone: Sodium [Moles/Vol] 138 mmol/L 136-145 [facility] Work Phone: Triglyceride [Mass/Vol] 139 mg/dL [facility] Work Phone: Comment on above: The drugs N-Acetylcy steine and Metamizole may falsely depress this assay.Serum Triglycerides Reference Interval Normal <150 mg/dL Borderline high 150 - 199 mg/dL High 200 - 499 mg/dL Very High > or = 500 mg/dL WBC (Bld) [#/Vol] 9.4 10*3/uL 4.4-11.0 [facility] Work Phone: Blood erythrocytes count (nu mber/volume)on 12-18-2021 RBC (Bld) [#/Vol] 4.69 10*6/uL 4.6-6.2 [facility] Work Phone: Blood hemoglobin measurement (mass/volume)on 12-18-2021 Hemoglobin (Bld) [Mass/Vol] 14.7 g/dL 13.0-16.5 [facility] Work Phone: Blood lymphocytes/100 leukoc yteson 12-18-2021 Lymphocytes/100 WBC (Bld) 26.0 % 19-41 [facility] Work Phone: Blood monocytes/100 leukocyt eson 12-18-2021 Monocytes/100 WBC (Bld) 7.2 % 0-10 [facility] Work Phone: Blood platelet mean volumeon 12-18-2021 Platelet mean volume (Bld) [Entitic vol] 12.7 fL 6.2-12.0 [facility] Work Phone: Culture, urineon 12-18-2021 Bacteria identified Cx Nom (U) Escherichia coli [facility] Work Phone: Determination of erythrocyte mean corpuscular volume (MCV)on 12-18-2021 MCV (RBC) [Entitic vol] 96.2 fL 80-94 [facility] Work Phone: Hematocrit Auto (Bld) [Volum e fraction]on 12-18-2021 Hematocrit (Bld) [Volume fraction] 45.1 % 40-54 [facility] Work Phone: Laboratory - Chemistry and C hemistry - challengeon 12-18-2021 Bilirubin Ql (U) Negative [facility] Work Phone: [phone] Glucose Ql (U) Negative [facility] Work Phone: Ketones Ql (U) Negative [facility] Work Phone: [phone] pH (U) 5.5 [pH] [facility] Work Phone: [phone] Specific gravity (U) [Rel density] 1.030 [facility] Work Phone: [phone] Urobilinogen (U) [Mass/Vol] 0.2349314 mg/dL [facility] Work Phone: [phone] ALP [Catalytic activity/Vol] 50 U/L 45-117 [facility] Work Phone: [phone] ALT [Catalytic activity/Vol] 41 U/L 16-61 [facility] Work Phone: [phone] CO2 [Moles/Vol] 32.0 mmol/L 21.0-32.0 [facility] Work Phone: [phone] Globulin (S) [Mass/Vol] 3.4 g/dL 2.2-4.2 [facility] Work Phone: [phone] Urea nitrogen/Creatinine [Mass ratio] 19.8 mg/mg 10-20 [facility] Work Phone: [phone] Laboratory - Hematology and Cell countson 12-18-2021 Hemoglobin Ql (U) Small [facility] Work Phone: [phone] Erythrocyte distribution width (RBC) [Entitic vol] 46.7 fL 35.1-43.9 [facility] Work Phone: [phone] Erythrocyte distribution width (RBC) [Ratio] 13.2 % 11.6-14.6 [facility] Work Phone: [phone] Immature granulocytes/100 WBC (Bld) 0.300 % 0.0-0.9 [facility] Work Phone: [phone] Comment on above: IG% - Immature Granu locytes (promyelocytes, myelocytes and metamyelocytes) > 1% indicates that a LEFT SHIFT is Present. MCH (RBC) [Entitic mass] 31.3 pg 27.0-32.0 [facility] Work Phone: Nucleated RBC/100 WBC (Bld) [Ratio] 0 % 0-5 [facility] Work Phone: Laboratory - Specimen inform ationon 12-18-2021 Clarity (U) Clear [facility] Work Phone: Color (U) Straw [facility] Work Phone: [phone] Laboratory - Urinalysison Nitrite Ql (U) Positive [facility] Work Phone: [phone] Protein Ql (U) Negative [facility] Work Phone: [phone] MCHC Auto (RBC) [Mass/Vol]on 12-18-2021 MCHC (RBC) [Mass/Vol] 32.6 g/dL 32-36 [facility] Work Phone: No Panel Informationon 12-18 Urine Leukocytes Positive [facility] Work Phone: [phone] Urine Non-Hemolyzed Blood Small [facility] Work Phone: [phone] Estimated GFR (MDRD) Amer 77 mL/min >60 [facility] Work Phone: Comment on above: GFR Calc Estimated GFR (MDRD) Non-Af Amer 64 mL/min >60 [facility] Work Phone: Comment on above: Non- GFR Calc Prostate Specific Antigen Screen 1.54 ng/mL 0.00-4.00 [facility] Work Phone: Comment on above: This test was perfor med using the TPSA assay method for the[facility] system. Values obtained with differentassay methods cannot be used interchangably.When changing PSA assays in the course of monitoring apatient, additional sequential testing should be carriedout to confirm baseline values. Thyroid Stimulating Hormone (TSH) 3.58 uIU/mL 0.358-3.74 [facility] Work Phone: Platelets bldon 12-18-2021 Platelets (Bld) [#/Vol] 156 10*3/uL 150-450 [facility] Work Phone: [phone] Serum or plasma albumin [place] urement (mass/volume)on 12-18-2021 Albumin [Mass/Vol] 4.0 g/dL 3.2-5.0 [facility] Work Phone: Serum or plasma albumin/glob ulin mass ratioon 12-18-2021 Albumin/Globulin [Mass ratio] 1.2 {ratio} 0.9-2.4 [facility] Work Phone: Serum or plasma calcium parish urement (mass/volume)on 12-18-2021 Calcium [Mass/Vol] 9.3 mg/dL 8.5-10.1 [facility] Work Phone: Serum or plasma cholesterol in HDL measurement (mass/volume)on 12-18-2021 Cholesterol in HDL [Mass/Vol] 38 mg/dL [facility] Work Phone: Comment on above: The drugs N-Acetylcy steine and Metamizole may falsely depress this assay. Reference Range HDL <40 mg/dL Low HDL Cholesterol HDL >or= 60 mg/dL High HDL Cholesterol Serum or plasma cholesterol in VLDL measurement (mass/volume)on 12-18-2021 Cholesterol in VLDL [Mass/Vol] 28 mg/dL 5-40 [facility] Work Phone: Serum or plasma creatinine m easurement (mass/volume)on 12-18-2021 Creatinine [Mass/Vol] 1.21 mg/dL 0.70-1.30 [facility] Work Phone: Comment on above: The validity of the calculated GFR & GFRAA in patients over 70 years has not been determined. Clinical correlation is essential. Serum or plasma low density lipoprotein (LDL) cholesterol measurement (mass/volume)on 12-18-2021 Cholesterol in LDL [Mass/Vol] 79 mg/dL 0-130 [facility] Work Phone: Serum or plasma urea nitroge n measurement (mass/volume)on 12-18-2021 Urea nitrogen [Mass/Vol] 24 mg/dL 7-18 [facility] Work Phone: Thin prep Papanicolaou smear with manual screeningon 12-18-2021 Thin prep Papanicolaou smear with manual screening 23 U/L 15-37 [facility] Work Phone: Thin prep Papanicolaou smear with manual screening -1 5-15 [facility] Work Phone: [phone] Laboratory - Chemistry and C hemistry - challengeon 10-17-2021 Bilirubin Ql (U) Negative [facility] Work Phone: Glucose Ql (U) Negative [facility] Work Phone: Ketones Ql (U) Negative [facility] Work Phone: [phone] pH (U) 6.5 [pH] [facility] Work Phone: [phone] Specific gravity (U) [Rel density] 1.030 [facility] Work Phone: Urobilinogen (U) [Mass/Vol] 0.0183643 mg/dL [facility] Work Phone: Laboratory - Hematology and Cell countson 10-17-2021 Hemoglobin Ql (U) Trace [facility] Work Phone: Laboratory - Specimen inform ationon 10-17-2021 Clarity (U) Cloudy [facility] Work Phone: [phone] Color (U) [place] [facility] Work Phone: Laboratory - Urinalysison Nitrite Ql (U) Positive [facility] Work Phone: [phone] Protein Ql (U) Negative [facility] Work Phone: No Panel Informationon 10-17 Urine Leukocytes Positive [facility] Work Phone: Urine Non-Hemolyzed Blood Trace [facility] Work Phone: US KIDNEY/BLADDERon 04-11-20 21 US KIDNEY/BLADDER * * *Final Report* * * DATE OF EXAM: Apr 11 2021 8:52AM DURGA 1055 - US KIDNEY/BLADDER / PROCEDURE REASON: N39.0-Recurrent UTI * * * * Physician Interpretation * * * * EXAMINATION: RENAL ULTRASOUND CLINICAL HISTORY: Recurrent urinary tract infection TECHNIQUE: Sonography of the kidneys and urinary bladder was performed. Images were obtained and stored in a permanent archive. MQ: UR_1 COMPARISON: None RESULT: Right Kidney: -Renal length: 11.1 cm -Parenchyma: Normal parenchymal echogenicity. Normal parenchymal thickness. -Collecting system: Mild right hydronephrosis -Calculus: No echogenic, shadowing calculus. -Lesion: Multiple cysts. The largest is inferior, 3.9 cm. Left Kidney: -Renal length: 12 cm -Parenchyma: Normal parenchymal echogenicity. Normal parenchymal thickness. -Collecting system: No hydronephrosis. -Calculus: No echogenic, shadowing calculus. -Lesion: Inferior cyst of 1.7 cm Bladder: Normal sonographic appearance. Pre and postvoid urinary bladder volume of 215 cc and 104 cc respectively were recorded IMPRESSION: Mild right hydronephrosis. Moderate post void residual urinary bladder volume. Bilateral renal cysts Bible Worker: PETER Transcribe Date/Time: Apr 11 2021 2:56P Dictated by : COREY MON MD This examination was interpreted and the report reviewed and electronically signed by: COREY MON MD on Apr 11 2021 2:58PM EST [id number] [facility] 04-05-2021 [facility] Office Visit (UROLMD) ---- EDWARD DUFFY ([id number]) 1955 M Date Time Provider Department 04/05/21 9:40 AM CHELA COFFMAN During your visit today, we recorded the following information about you: Weight Height 115.2 kg 1.803 m Chela Coffman APRN.CNP 04/05/2021 1:24 PM Sign when Signing Visit ESTABLISHED PATIENT OFFICE VISIT HISTORY OF PRESENT ILLNESS Previous note 02/13/21: Edwrad Duffy is a 65 year old male?with h/o BPH with LUTS and urge incontinence?who presents today for ED follow up for right-sided epididymitis with moderate pyocele and left varicocele.? ? S/p TURP a year ago and lasered x 2?several years ago per patient? ? Patient taking doxycycline x 10 days and omnicef?with improvement but still swelled on the left. We discussed scrotal support/ice/elevati on/NSAIDs ? Patient wearing depends and state that he gets enough support CIC once before bed? STI work up negative? No fever or chills. No gross hematuria. No dysuria.?Denies trauma or injury to area. ? -?Finish antibiotics and follow up if symptoms do not improve? ? Previous note 03/03/21: Patient reports that he did finish both doxycycline and omnicef with improvement but still having right testicular pain and swelling. ? Wearing support Still cathing once before bed ? No fever or chills No gross hematuria No dysuria ? Will continue another course doxy and onmicef and follow up if not improved. ? Today's note: Patient reports that the testicular pain and swelling have improved but still having frequency dysuria and incontinence. He denies fever or chills. No gross hematuria. Patient reports that he has not been cathing before bed He is having nocturnal enuresis more frequently since he stopped cathing. He stopped cathing because he felt like he didn't need to and was trying to prevent infection. UA ++ trace blood, nitrites and moderate leuks - will sent urine for culture. Patient has completed 2 courses of omnicef and doxycycline. Symptoms still persist. Rx for monurol x 3 doses Renal ultrasound Cystoscopy with Dr. Ovalle We discussed continuing CIC to empty bladder, d-mannose and increasing water intake. PVR 80 cc today ? LAB RESULTS Creatinine Date Value Ref Range Status 02/09/2021 1.40 (H) 0.73 - 1.22 mg/dL Final 08/25/2010 1.0 0.8 - 1.4 MG/DL Final PSA (no units) Date Value 12/16/2019 1.09 Color (no units) Date Value 02/09/2021 Yellow 08/25/2010 YELLOW Clarity (no units) Date Value 02/09/2021 Cloudy Glucose, Urine Date Value 02/09/2021 Negative 08/25/2010 NEGATIVE MG/DL Bilirubin, Urine (no units) Date Value 02/09/2021 Negative 08/25/2010 NEGATIVE Ketones, Urine Date Value 02/09/2021 Negative 08/25/2010 NEGATIVE MG/DL Specific [place], Ur (no units) Date Value 02/09/2021 1.013 08/25/2010 1.015 Hemoglobin/Blood,Ur (no units) Date Value 02/09/2021 Small 08/25/2010 MODERATE pH, Urine (no units) Date Value 02/09/2021 7.0 08/25/2010 5.5 Protein, Urine Date Value 02/09/2021 Negative 08/25/2010 NEGATIVE MG/DL Urobilinogen Date Value 02/09/2021 0.2 EU/dL 08/25/2010 0.2 EU/DL Nitrites (no units) Date Value 02/09/2021 Positive 08/25/2010 NEGATIVE Leukest (no units) Date Value 08/25/2010 TRACE Leuk Esterase (no units) Date Value 02/09/2021 Large MEDICATIONS: tamsulosin ER (FLOMAX) 0.4 mg Take 2 capsules by mouth daily at bedtime. multivitamin tablet Take 1 tablet by mouth once daily. Ascorbic Acid (VITAMIN C) 1,000 mg tablet Take 1,000 mg by mouth once daily. docosahexaenoic acid/epa (FISH OIL ORAL) Take 1,000 mg by mouth. Pt takes 3 in the morning sildenafil (REVATIO) 20 mg tablet TAKE 2-5 TABLETS BY MOUTH DIRECTED 1/2 HOUR PRIOR TO SEXUAL ACTIVITY aspirin, enteric coated (ASPIRIN, ENTERIC COATED) 81 mg EC tablet 81 mg. benazepril (LOTENSIN) 10 mg tablet Take 10 mg by mouth once daily. cyanocobalamin (VITAMIN B-12) 100 mcg tab Vitamin B 12 cyanocobalamin (vit B-12) 100 mcg tablet Active 100 MCG DAILY August 06, 2018 2:34pm 08-06-2018 [facility] ([id number]) levothyroxine (SYNTHROID) 175 mcg tablet 200 mcg. simvastatin (ZOCOR) 20 mg tablet Take 20 mg by mouth daily at bedtime. cefdinir (OMNICEF) 300 mg capsule Take 1 capsule by mouth twice daily. oxybutynin ER (DITROPAN XL) 10 mg 24 hr tablet take 1 tablet by mouth once daily phenazopyridine HCl (AZO ORAL) Take 1,000 mg by mouth once daily. VENTOLIN HFA 90 mcg/actuation inhaler darifenacin ER (ENABLEX) 15 mg 24 hr tablet take 1 tablet by mouth once daily REVIEW OF SYSTEMS CONSTITUTIONAL: Patient reports no recent fever or weight loss CARDIOVASCULAR: No chest pain, palpitations or ankle edema. RESPIRATORY: No wheezing, frequent cough or shortness of breath GENITOURINARY: See HPI HISTORIES PAST MEDICAL HISTOR (more content not included)... Normal [facility] Urine Cultureon 04-05-2021 Bacteria identified Cx Nom (U) Sp. Request/Comment: - Specimen received in preservative Culture Result - >=100,000 CFU/ml Escherichia coli --> ABNORMAL ALERT ORGANISM: Escherichia coli METHOD: Minimum inhibitory concentration(Vitek ) Antibiotic Interp CHILANGO Status Ampicillin RESISTANT >=32 F Gentamicin SUSCEPTIBLE <=1 F Trimeth sulfameth SUSCEPTIBLE <=20 F Cefazolin SUSCEPTIBLE <=4 F CLSI breakpoints for therapy of uncomplicated UTI's due to E.coli, K.pneumoniae, and P.mirabilis were applied and may be used to predict the activity of oral agents(cefaclor, cefdinir, cefpodoxime, cefprozil, cefuroxime, cephalexin, loracarbef). Ciprofloxacin RESISTANT >=4 F Nitrofurantoin SUSCEPTIBLE <=16 F Cefepime SUSCEPTIBLE <=1 F Piperacillin/Tazoba c SUSCEPTIBLE <=4 F Ampicillin Sulbact RESISTANT >=32 F Ceftriaxone SUSCEPTIBLE <=1 F Meropenem SUSCEPTIBLE <=0.25 F Ertapenem SUSCEPTIBLE <=0.5 F Critically abnormal [facility] Comment on above: Performed By: #### U RCUL #### [facility] [address] [facility] [address] [place] [address] [facility] [address] [place] [address] Cult Urineon 03-23-2020 Cult Urine Test performed at [facility] ORGANISM: *Escherichia coli (ID: 1) >100,000 CFU/ml CLSI breakpoints for therapy of uncomplicated UTI due to E. coli, K. pneumoniae or P. mirabilis were applied and may be used to predict the activity of oral agents (cefdinir, cefpodoxime, cefuroxime, and cephalexin). Normal [facility] Comment on above: Performed By: #### C _URI #### [facility] [address] [address] BLADDER SCAN [facility] Culture, urine Bacteria identified Cx Nom (U) Escherichia coli [facility] Work Phone: No Panel Information Nasal Screen MRSA/MSSA [facility] Work Phone: Vital Signs Date Time Vital Sign Value Performing Clinician Luis Alberto garcia 12-28-2024 17:34-0400 Body height 180.34 cm Manny Golden GENETIC ENGINEER-C Work Phone: [facility] 12-28-2024 17:34-0400 Body mass index (BMI) [Ratio] 37.9 kg/m2 Mnany Golden GENETIC ENGINEER-C Work Phone: [facility] 12-28-2024 17:34-0400 Body temperature 97.7 [degF] Manny Golden GENETIC ENGINEER-C Work Phone: [facility] 12-28-2024 17:34-0400 Body weight 123.37 kg Manny Golden GENETIC ENGINEER-C Work Phone: [facility] 12-28-2024 17:34-0400 Diastolic blood pressure 80 mm[Hg] Manny Golden GENETIC ENGINEER-C Work Phone: [facility] 12-28-2024 17:34-0400 Heart rate 62 /min Manny Golden GENETIC ENGINEER-C Work Phone: [facility] 12-28-2024 17:34-0400 Respiratory rate 18 /min Manny Golden GENETIC ENGINEER-C Work Phone: [facility] 12-28-2024 17:34-0400 SaO2% (BldA) [Mass fraction] 99 % Manny Golden GENETIC ENGINEER-C Work Phone: [facility] 12-28-2024 17:34-0400 Systolic blood pressure 142 mm[Hg] Manny Golden GENETIC ENGINEER-C Work Phone: [facility] 11-18-2024 17:36-0500 Body mass index (BMI) [Ratio] 37.6 kg/m2 Manny Golden GENETIC ENGINEER-C Work Phone: [facility] 11-18-2024 17:36-0500 Body temperature 97 [degF] Manny Golden GENETIC ENGINEER-C Work Phone: [facility] 11-18-2024 17:36-0500 Body weight 122.46 kg Manny Golden GENETIC ENGINEER-C Work Phone: [facility] 11-18-2024 17:36-0500 Diastolic blood pressure 80 mm[Hg] Manny Golden GENETIC ENGINEER-C Work Phone: [facility] 11-18-2024 17:36-0500 Heart rate 65 /min Manny Golden GENETIC ENGINEER-C Work Phone: [facility] 11-18-2024 17:36-0500 Respiratory rate 18 /min Manny Golden GENETIC ENGINEER-C Work Phone: [facility] 11-18-2024 17:36-0500 SaO2% (BldA) [Mass fraction] 97 % Manny Golden GENETIC ENGINEER-C Work Phone: [facility] 11-18-2024 17:36-0500 Systolic blood pressure 122 mm[Hg] Manny Golden GENETIC ENGINEER-C Work Phone: [facility] 01-06-2024 15:27-0400 Body height 180.34 cm [facility] 01-06-2024 15:27-0400 Body mass index (BMI) [Ratio] 37.6 kg/m2 [facility] 01-06-2024 15:27-0400 Body temperature 97.3 [degF] [facility] 01-06-2024 15:27-0400 Body weight 122.46 kg [facility] 01-06-2024 15:27-0400 Diastolic blood pressure 90 mm[Hg] [facility] 01-06-2024 15:27-0400 Heart rate 65 /min [facility] 01-06-2024 15:27-0400 Respiratory rate 18 /min [facility] 01-06-2024 15:27-0400 SaO2% (BldA) [Mass fraction] 98 % [facility] 01-06-2024 15:27-0400 Systolic blood pressure 150 mm[Hg] [facility] 12-12-2023 20:48-0500 Body mass index (BMI) [Ratio] 38.2 kg/m2 [facility] 12-12-2023 20:48-0500 Body temperature 97.7 [degF] [facility] 12-12-2023 20:48-0500 Body weight 124.28 kg [facility] 12-12-2023 20:48-0500 Diastolic blood pressure 68 mm[Hg] [facility] 12-12-2023 20:48-0500 Heart rate 68 /min [facility] 12-12-2023 20:48-0500 Respiratory rate 18 /min [facility] 12-12-2023 20:48-0500 SaO2% (BldA) [Mass fraction] 96 % [facility] 12-12-2023 20:48-0500 Systolic blood pressure 120 mm[Hg] [facility] 08-07-2023 15:16-0400 Body height 180.3 cm Khadar Ovalle MD Work Phone: [facility] 08-07-2023 15:16-0400 Body weight 115.21 kg Khadar Ovalle MD Work Phone: [facility] 08-07-2023 15:16-0400 Heart rate 66 /min Khadar Ovalle MD Work Phone: [facility] 08-07-2023 15:16-0400 SaO2% (BldA) [Mass fraction] 97 % Khadar Ovalle MD Work Phone: [facility] 2023 15:37-0400 Body height 180.34 cm [facility] 06-20-2023 20:10-0400 Body mass index (BMI) [Ratio] 36.8 kg/m2 [facility] 06-20-2023 20:10-0400 Body temperature 97.5 [degF] [facility] 06-20-2023 20:10-0400 Body weight 119.74 kg [facility] 06-20-2023 20:10-0400 Diastolic blood pressure 80 mm[Hg] [facility] 06-20-2023 20:10-0400 Heart rate 65 /min [facility] 06-20-2023 20:10-0400 Respiratory rate 18 /min [facility] 06-20-2023 20:10-0400 SaO2% (BldA) [Mass fraction] 98 % [facility] 06-20-2023 20:10-0400 Systolic blood pressure 150 mm[Hg] [facility] 04-03-2023 18:02-0400 Body mass index (BMI) [Ratio] 37 kg/m2 [facility] 04-03-2023 18:02-0400 Body temperature 97.9 [degF] [facility] 04-03-2023 18:02-0400 Body weight 120.65 kg [facility] 04-03-2023 18:02-0400 Diastolic blood pressure 60 mm[Hg] [facility] 04-03-2023 18:02-0400 Heart rate 81 /min [facility] 04-03-2023 18:02-0400 Respiratory rate 18 /min [facility] 04-03-2023 18:02-0400 SaO2% (BldA) [Mass fraction] 96 % [facility] 04-03-2023 18:02-0400 Systolic blood pressure 142 mm[Hg] [facility] 12-11-2022 15:35-0500 Body height 180.34 cm [facility] 12-11-2022 15:35-0500 Body mass index (BMI) [Ratio] 37.8 kg/m2 [facility] 12-11-2022 15:35-0500 Body temperature 97.2 [degF] [facility] 12-11-2022 15:35-0500 Body weight 122.92 kg [facility] 12-11-2022 15:35-0500 Diastolic blood pressure 80 mm[Hg] [facility] 12-11-2022 15:35-0500 Heart rate 61 /min [facility] 12-11-2022 15:35-0500 Respiratory rate 18 /min [facility] 12-11-2022 15:35-0500 SaO2% (BldA) [Mass fraction] 95 % [facility] 12-11-2022 15:35-0500 Systolic blood pressure 130 mm[Hg] [facility] 05-07-2022 15:34-0400 Body height 180.34 cm GENETIC ENGINEER-C Manny Golden GENETIC ENGINEER Work Phone: [facility] Work Phone: 04-30-2022 12:24-0400 Body height 180.34 cm GENETIC ENGINEER-C Manny Golden GENETIC ENGINEER Work Phone: [facility] Work Phone: 04-30-2022 12:24-0400 Body mass index (BMI) [Ratio] 36.5 kg/m2 GENETIC ENGINEER-C Manny Golden GENETIC ENGINEER Work Phone: [facility] Work Phone: 04-30-2022 12:24-0400 Body temperature 97.7 [degF] GENETIC ENGINEER-C Manny Golden GENETIC ENGINEER Work Phone: [facility] Work Phone: 04-30-2022 12:24-0400 Body weight 118.84 kg GENETIC ENGINEER-C Manny Golden GENETIC ENGINEER Work Phone: [facility] Work Phone: 04-30-2022 12:24-0400 Diastolic blood pressure 78 mm[Hg] GENETIC ENGINEER-C Manny Golden GENETIC ENGINEER Work Phone: [facility] Work Phone: 04-30-2022 12:24-0400 Heart rate 45 /min GENETIC ENGINEER-C Manny Golden GENETIC ENGINEER Work Phone: [facility] [facility] Work Phone: 04-30-2022 12:24-0400 Respiratory rate 18 /min GENETIC ENGINEER-C Manny Golden GENETIC ENGINEER Work Phone: [facility] Work Phone: 04-30-2022 12:24-0400 SaO2% (BldA) [Mass fraction] 97 % GENETIC ENGINEER-C Manny Chantel GENETIC ENGINEER Work Phone: [facility] Work Phone: 04-30-2022 12:24-0400 Systolic blood pressure 152 mm[Hg] GENETIC ENGINEER-C Manny Golden GENETIC ENGINEER Work Phone: [facility] Work Phone: 01-30-2022 15:06-0400 Body temperature 97.3 [degF] GENETIC ENGINEER-C Manny Golden GENETIC ENGINEER Work Phone: [facility] Work Phone: 01-30-2022 15:06-0400 Diastolic blood pressure 58 mm[Hg] GENETIC ENGINEER-C Manny Leonson GENETIC ENGINEER Work Phone: [facility] Work Phone: 01-30-2022 15:06-0400 Heart rate 60 /min GENETIC ENGINEER-C Manny Golden GENETIC ENGINEER Work Phone: [facility] Work Phone: 01-30-2022 15:06-0400 Respiratory rate 16 /min GENETIC ENGINEER-C Manny Golden GENETIC ENGINEER Work Phone: [facility] Work Phone: 01-30-2022 15:06-0400 SaO2% (BldA) [Mass fraction] 100 % GENETIC ENGINEER-C Manny Golden GENETIC ENGINEER Work Phone: [facility] Work Phone: 01-30-2022 15:06-0400 Systolic blood pressure 132 mm[Hg] GENETIC ENGINEER-C Manny Golden GENETIC ENGINEER Work Phone: [facility] Work Phone: 01-30-2022 12:54-0400 Inhaled oxygen flow rate 4 L/min GENETIC ENGINEER-C Manny Golden GENETIC ENGINEER Work Phone: [facility] Work Phone: 01-30-2022 06:49-0400 Body height 180.34 cm GENETIC ENGINEER-C Manny Golden GENETIC ENGINEER Work Phone: [facility] Work Phone: 01-30-2022 06:49-0400 Body mass index (BMI) [Ratio] 36.3 kg/m2 GENETIC ENGINEER-C Manny Golden GENETIC ENGINEER Work Phone: [facility] Work Phone: 01-30-2022 06:49-0400 Body weight 118.38 kg GENETIC ENGINEER-C Manny Golden GENETIC ENGINEER Work Phone: [facility] Work Phone: 01-03-2022 08:08-0400 Body mass index (BMI) [Ratio] 36.8 kg/m2 GENETIC ENGINEER-C Manny Golden GENETIC ENGINEER Work Phone: [facility] Work Phone: 01-03-2022 08:08-0400 Body weight 119.74 kg GENETIC ENGINEER-C Manny Golden GENETIC ENGINEER Work Phone: [facility] Work Phone: 01-03-2022 08:08-0400 Body height 180.34 cm GENETIC ENGINEER-C Manny Golden GENETIC ENGINEER Work Phone: [facility] Work Phone: 01-03-2022 08:08-0400 Body mass index (BMI) [Ratio] 36.8 kg/m2 GENETIC ENGINEER-C Manny Golden GENETIC ENGINEER Work Phone: [facility] Work Phone: 01-03-2022 08:08-0400 Body weight 119.74 kg GENETIC ENGINEER-C Manny Golden GENETIC ENGINEER Work Phone: [facility] Work Phone: 12-18-2021 14:05-0500 Body mass index (BMI) [Ratio] 37 kg/m2 GENETIC ENGINEER-C Manny Golden GENETIC ENGINEER Work Phone: [facility] Work Phone: 12-18-2021 14:05-0500 Body temperature 97.6 [degF] GENETIC ENGINEER-C Manny Golden GENETIC ENGINEER Work Phone: [facility] Work Phone: 12-18-2021 14:05-0500 Body weight 120.65 kg GENETIC ENGINEER-C Manny Golden GENETIC ENGINEER Work Phone: [facility] Work Phone: 12-18-2021 14:05-0500 Diastolic blood pressure 70 mm[Hg] GENETIC ENGINEER-C Manny Golden GENETIC ENGINEER Work Phone: [facility] Work Phone: 12-18-2021 14:05-0500 Heart rate 61 /min GENETIC ENGINEER-C Manny Golden GENETIC ENGINEER Work Phone: [facility] Work Phone: 12-18-2021 14:05-0500 Respiratory rate 18 /min GENETIC ENGINEER-C Manny Golden GENETIC ENGINEER Work Phone: [facility] Work Phone: 12-18-2021 14:05-0500 SaO2% (BldA) [Mass fraction] 99 % GENETIC ENGINEER-C Manny Golden GENETIC ENGINEER Work Phone: [facility] Work Phone: 12-18-2021 14:05-0500 Systolic blood pressure 110 mm[Hg] GENETIC ENGINEER-C Manny Golden GENETIC ENGINEER Work Phone: [facility] Work Phone: 10-17-2021 14:57-0500 Body mass index (BMI) [Ratio] 37.6 kg/m2 GENETIC ENGINEER-C Manny Golden GENETIC ENGINEER Work Phone: [facility] Work Phone: 10-17-2021 14:57-0500 Body temperature 97.7 [degF] GENETIC ENGINEER-C Manny Golden GENETIC ENGINEER Work Phone: [facility] Work Phone: 10-17-2021 14:57-0500 Body weight 122.46 kg GENETIC ENGINEER-C Manny Golden GENETIC ENGINEER Work Phone: [facility] Work Phone: 10-17-2021 14:57-0500 Diastolic blood pressure 70 mm[Hg] GENETIC ENGINEER-C Manny Golden GENETIC ENGINEER Work Phone: [facility] Work Phone: 10-17-2021 14:57-0500 Heart rate 63 /min GENETIC ENGINEER-C Manny Golden GENETIC ENGINEER Work Phone: [facility] Work Phone: 10-17-2021 14:57-0500 Respiratory rate 18 /min GENETIC ENGINEER-C Manny Golden GENETIC ENGINEER Work Phone: [facility] Work Phone: 10-17-2021 14:57-0500 SaO2% (BldA) [Mass fraction] 97 % GENETIC ENGINEER-C Manny Golden GENETIC ENGINEER Work Phone: [facility] Work Phone: 10-17-2021 14:57-0500 Systolic blood pressure 110 mm[Hg] GENETIC ENGINEER-C Manny Golden GENETIC ENGINEER Work Phone: [facility] Work Phone: Encounters Encounter Date Encounter Type Care Provider Facility Start: 12-28-2024 End: 12-28-2024 ambulatory Manny Golden GENETIC ENGINEER-C Work Phone: [facility] Work Phone: Start: 12-28-2024 End: 12-28-2024 Patient encounter procedure Manny Golden GENETIC ENGINEER-C -Laboratory, Specimen Work Phone: Start: 12-28-2024 End: 12-28-2024 ambulatory Manny Golden GENETIC ENGINEER Facility:[facility] Start: 08-31-2024 End: 08-31-2024 ambulatory CODY NEYDA CYNDI Facility:[facility] Start: 07-24-2024 End: 07-24-2024 ambulatory Manny Golden NP Facility:[facility] Start: 06-15-2024 End: 06-15-2024 ambulatory MANNY GOLDEN Facility:[facility] Start: 05-04-2024 End: 05-04-2024 ambulatory CODY NEYDA HANNA Facility:[facility] Start: 04-21-2024 Patient encounter procedure [facility] Provider [facility] Department Start: 04-13-2024 End: 04-13-2024 ambulatory [facility] Facility:[facility] Start: 01-06-2024 End: 01-06-2024 ambulatory [facility] Work Phone: Start: 01-06-2024 End: 01-06-2024 Patient encounter procedure [facility]-Laboratory, Specimen Work Phone: Start: 08-07-2023 End: 08-07-2023 Patient encounter procedure Khadar Ovalle MD Work Phone: Urology Comment on above: Urinary tract infect ion without hematuria, site unspecified (Primary Dx); Benign prostatic hyperplasia with incomplete bladder emptying; Enuresis Start: 06-20-2023 End: 06-20-2023 ambulatory [facility] Work Phone: Start: 06-20-2023 End: 06-20-2023 Patient encounter procedure [facility]-Laboratory, Specimen Work Phone: Start: 04-03-2023 End: 04-03-2023 Patient encounter procedure [facility]Laboratory, Specimen Work Phone: Start: 12-11-2022 End: 12-11-2022 ambulatory [facility] Work Phone: Start: 12-11-2022 End: 12-11-2022 Patient encounter procedure [facility]Laboratory, Specimen Start: 04-30-2022 End: 04-30-2022 Patient encounter procedure GENETIC ENGINEER-C Manny Golden NP Work Phone: [facility]-Laboratory, Specimen Start: 04-25-2022 End: 04-25-2022 Patient encounter procedure GENETIC ENGINEER-C Manny Golden GENETIC ENGINEER Work Phone: [facility] Start: 03-12-2022 End: 03-12-2022 Patient encounter procedure GENETIC ENGINEER-C Manny Golden GENETIC ENGINEER Work Phone: [facility] Start: 03-08-2022 End: 03-08-2022 ambulatory GENETIC ENGINEER-C Manny Golden GENETIC ENGINEER Work Phone: [facility] Work Phone: Start: 03-08-2022 End: 03-08-2022 Discharged Recurring GENETIC ENGINEER-C Manny Golden GENETIC ENGINEER Work Phone: [facility]-Physical Therapy Start: 03-08-2022 Registered Recurring GENETIC ENGINEER-C Manny Golden GENETIC ENGINEER Work Phone: [facility]Physical Therapy Start: 02-12-2022 End: 02-12-2022 Patient encounter procedure GENETIC ENGINEER-C Manny Golden GENETIC ENGINEER Work Phone: [facility] Start: 01-30-2022 Non-patient / Non-visit GENETIC ENGINEER-C Antonella Golden GENETIC ENGINEER Work Phone: [facility] Start: 01-30-2022 End: 01-30-2022 Admission to same day surgery center GENETIC ENGINEER-Wilmer Golden GENETIC ENGINEER Work Phone: [facility] Start: 01-19-2022 Non-patient / Non-visit GENETIC ENGINEER-C Antonella Golden GENETIC ENGINEER Work Phone: [facility] Start: 01-15-2022 Registered Recurring GENETIC ENGINEER-Wilmer Golden [facility]IC [facility] Start: 01-11-2022 End: 01-11-2022 Patient encounter procedure GENETIC ENGINEER-Wilmer Golden GENETIC ENGINEER Work Phone: [facility] Start: 01-03-2022 End: 01-03-2022 Patient encounter procedure GENETIC ENGINEER-C Manny Golden GENETIC ENGINEER Work Phone: [facility] Start: 12-18-2021 End: 12-18-2021 Patient encounter procedure GENETIC ENGINEER-C Manny Golden GENETIC ENGINEER Work Phone: [facility]-Laboratory, Specimen Procedures Date Procedure Procedure Detail Performing Clinician Start: 08-07-2023 Urnls dip stick/tabl et rgnt auto w/o microscopy Khadar Ovalle MD Work Phone: Start: 08-07-2023 BLADDER SCAN Khadar nobles MD Work Phone: Start: 06-20-2023 Urine culture Start: 04-03-2023 Urine culture Start: 03-12-2022 Plain x-ray of pelvi s and lower extremity GENETIC ENGINEER-C Mannyletty Golden GENETIC ENGINEER Work Phone: Start: 01-30-2022 Plain X-ray of hip GENETIC ENGINEER-C Manny Golden GENETIC ENGINEER Work Phone: Start: 01-30-2022 Total Hip Replacemen t Robotic Arm Assist (Right) GENETIC ENGINEER-C Manny Golden GENETIC ENGINEER Work Phone: Start: 01-19-2022 Nasal Screen MRSA/MSSA GENETIC ENGINEER-C Manny Golden GENETIC ENGINEER Work Phone: Start: 01-11-2022 MRI of lower extremity GENETIC ENGINEER-C Manny Golden GENETIC ENGINEER Work Phone: Start: 01-03-2022 X-ray of lumbar spin e, two or three views GENETIC ENGINEER-C Manny Golden GENETIC ENGINEER Work Phone: Start: 12-18-2021 Urine culture GENETIC ENGINEER-C Manny Golden GENETIC ENGINEER Work Phone: Nasal Screen MRSA/MSSA GENETIC ENGINEER-C Manny Golden GENETIC ENGINEER Work Phone: Urine culture GENETIC ENGINEER-C Manny Adrián rhoades GENETIC ENGINEER Work Phone: Urine culture Plan of Treatment Date Care Activity Detail Author Start: 04-13-2027 Diabetes Screening Diabetes Screening [facility] Start: 06-21-2024 Influenza vaccination Influenza Vaccine (#1) [facility] Start: 02-10-2024 Diabetes Screening Diabetes Screening [facility] Start: 01-09-2024 Covid-19 Vaccine ( season) Covid-19 Vaccine () [facility] Start: 10-21-2023 Advance Directive Discussion Advance Directive Discussion [facility] Start: 10-21-2023 Behavioral Health Screening Behavioral Health Screening [facility] Start: 06-21-2023 Covid-19 Vaccine () Covid-19 Vaccine () [facility] Start: 06-21-2023 Influenza vaccination Influenza Vaccine (#1) [facility] Start: 10-21-2022 Advance Directive Discussion Advance Directive Discussion [facility] Start: 10-21-2022 Depression Assessment Depression Assessment [facility] Start: 01-30-2022 Anesthesia arthroscopic hip joint procedure ANESTH ARTHROSCOPY OF HIP [facility] Work Phone: Start: 01-30-2022 Arthrp acetblr/prox fem prostc agrft/algrft TOTAL HIP ARTHROPLASTY [facility] Work Phone: Start: 01-30-2022 Application of antithromboembolic stockings [facility] Work Phone: Start: 01-30-2022 Application of ice collar, cap or bag [facility] Work Phone: Start: 01-30-2022 Exercises [facility] Work Phone: Start: 01-30-2022 Incentive spirometry [facility] Work Phone: Start: 01-30-2022 Neurovascular assessment [facility] Work Phone: Start: 01-30-2022 Patient discharge [facility] Work Phone: Start: 01-30-2022 Patient education [facility] Work Phone: Start: 01-30-2022 Provision of activity privileges [facility] Work Phone: Start: 01-30-2022 Referral to service [facility] Work Phone: Start: 01-30-2022 Vital signs measurements [facility] Work Phone: Start: 01-30-2022 Wound care [facility] Work Phone: Start: 01-30-2022 [facility] Work Phone: Start: 2014 RSV Vaccine (1 - 1-dose 60+ series) RSV Vaccine (1 - 1-dose 60+ series) [facility] Start: 2004 Influenza vaccination Lung Cancer Screening [facility] Start: 2004 Screening for malignant neoplasm of lung Lung Cancer Screening [facility] Start: 2004 Shingrix Vaccine (1 of 2) Shingrix Vaccine (1 of 2) [facility] Start: 1999 Cologuard (FIT-DNA) Cologuard (FIT-DNA) [facility] Start: 1999 Colonoscopy Colonoscopy [facility] Start: 1999 Colorectal Cancer Screening Colorectal Cancer Screening [facility] Start: [address] Colonography [facility] Start: 1999 Fecal Occult Blood Fecal Occult Blood [facility] Start: 1999 Screening for malignant neoplasm of colon [facility] Start: 1999 Sigmoidoscopy Sigmoidoscopy [facility] Start: 1989 Lipid 1996 panel - Serum or Plasma Lipid Screening [facility] Start: 1989 Lipid panel Lipid Screening [facility] Start: 1973 Urine microalbumin profile DTaP,Tdap,Td Vaccine (1 - Tdap) [facility] Start: 1972 Hepatitis C Screening Hepatitis C Screening [facility] Start: 1972 Hepatitis C screening Hepatitis C Screening [facility] Start: 1960 Pneumococcal Vaccine: 65+ (1 - PCV) Pneumococcal Vaccine: 65+ (1 - PCV) [facility] Start: 1960 Pneumococcal Vaccine: 65+ (1 of 2 - PCV) Pneumococcal Vaccine: 65+ (1 of 2 - PCV) [facility] Start: 1954 Abdominal Aortic Aneurysm Screening Abdominal Aortic Aneurysm Screening [facility] Start: 1954 Abdominal aortic aneurysm screening Abdominal Aortic Aneurysm Screening [facility] Patient referral [facility] Work Phone: [facility] Payers Date Payer Category Payer Self-pay [id number] 2013 Medicare MEDICARE MEDICAR E A AND B [id number] 2013-Present [phone] [place] [address] Medicare [id number] 2013 Medicare [id number] Medicaid [id number] Unknown [id number] Unknown [id number] Social History Date Type Detail Facility Start: 01-16-2022 End: 04-15-2023 Tobacco smoking status NHIS Unknown if ever smoked [facility] Start: 1955 Sex Assigned At Male [facility] Start: 04-15-2023 End: 08-07-2023 Tobacco smoking status NHIS Smokes tobacco daily [facility] History of tobacco use Cigarette Smoker [facility] Start: 05-26-2020 End: 08-07-2023 Cigarettes smoked current (pack per day) - Reported 1 [facility] Start: 08-07-2023 Tobacco use and exposure Smoke less tobacco non-user [facility] Start: 08-07-2023 Alcohol intake Current drinke r of alcohol (finding) [facility] Start: 05-26-2020 End: 08-07-2023 Alcohol Use Disorder Identification Test - Consumption [AUDIT-C] [facility] How often to you hav e a drink containing alcohol? Monthly or less [facility] Average Number of Drinks Not on file [facility] Start: 03-22-2020 Alcohol Comment rare occassion has a beer [facility] Start: 1955 Sex Assigned At Not on file [facility] Start: 01-07-2025 Sex Male (finding) [facility] Medical Equipment Procedure Code Equipment Code Equipment Origin al Text Equipment Identifier Dates ([id number]) Ceramic femoral head prosthesis [id number] FDA Start: 01-30-2022 ([id number]) Coated hip femur prosthesis, modular ()[id number] FDA Start: 01-30-2022 ([id number]) Non-constrained polyethylene acetabular liner ()[id number] FDA Start: 01-30-2022 ([id number]) Acetabular shell [id number] FDA Start: 01-30-2022 ([id number]) Orthopaedic bone screw, non-bioabsorbable, sterile ()[id number] FDA Start: 01-30-2022 Goals Date Patient Goal Desired Activity /State Mental Status Date Assessment Result Facility 01-30-2022 Cognitive function Voice/Name;Light Pain [facility] Work Phone: Clinical Notes 04-05-2021 to 11-18-2024 Note Date & Type Note Facility 11-18-2024 Evaluation note Diagnosis Onset Date Resolution Lower leg edema acute October 222024 5:29pm Unsteady gait acute October 5:29pm Hyperlipidemia LDL goal <130 acute December 28, 2024 5:27pm Hypothyroidism acute December 5:27pm Hypertension chronic December 28, 2024 5:27pm [facility] Work Phone: 1(192) 106-723810-18-2023 History of Present illness Narrative* Khadar Ovalle MD - 08/07/2023 4:06 PM EDT ESTABLISHED PATIENT OFFICE VISIT HISTORY OF PRESENT ILLNESS Patient presents with: UTI Edward Duffy is a 68 year old male who I last saw in 2020 presents with for follow up regarding his chronic voiding issues LAB RESULTS Creatinine Date Value Ref Range Status 02/09/2021 1.40 (H) 0.73 - 1.22 mg/dL Final PSA (no units) Date Value 12/16/2019 1.09 Color (no units) Date Value 02/09/2021 Yellow 08/25/2010 YELLOW Clarity (no units) Date Value 02/09/2021 Cloudy Glucose, Urine Date Value 02/09/2021 Negative 08/25/2010 NEGATIVE MG/DL Bilirubin, Urine (no units) Date Value 02/09/2021 Negative 08/25/2010 NEGATIVE Ketones, Urine Date Value 02/09/2021 Negative 08/25/2010 NEGATIVE MG/DL Specific [place], Ur (no units) Date Value 02/09/2021 1.013 08/25/2010 1.015 Hemoglobin/Blood,Ur (no units) Date Value 02/09/2021 Small 08/25/2010 MODERATE pH, Urine (no units) Date Value 02/09/2021 7.0 08/25/2010 5.5 Protein, Urine Date Value 02/09/2021 Negative 08/25/2010 NEGATIVE MG/DL Urobilinogen Date Value 02/09/2021 0.2 EU/dL 08/25/2010 0.2 EU/DL Nitrites (no units) Date Value 02/09/2021 Positive 08/25/2010 NEGATIVE Leukest (no units) Date Value 08/25/2010 TRACE Leuk Esterase (no units) Date Value 02/09/2021 Large ALLERGIES Allergen Reactions Trimethoprim Unknown Diphenhydramine Mental Status Change, Other: See Comments Heart rate speeds up and slows down Codeine Unknown Penicillin G Unknown Has tolerated cephalosporins and oral pencillin. States reactions was only to IV penicillin Percocet [Oxycodone* Unknown Sulfa (Sulfonamide * Unknown Vicodin [Hydrocodon* Unknown MEDICATIONS: oxybutynin ER (DITROPAN XL) 10 mg 24 hr tablet take 1 tablet by mouth once daily tamsulosin ER (FLOMAX) 0.4 mg Take 2 capsules by mouth daily at bedtime. multivitamin tablet Take 1 tablet by mouth once daily. Ascorbic Acid (VITAMIN C) 1,000 mg tablet Take 1,000 mg by mouth once daily. docosahexaenoic acid/epa (FISH OIL ORAL) Take 1,000 mg by mouth. Pt takes 3 in the morning sildenafil (REVATIO) 20 mg tablet TAKE 2-5 TABLETS BY MOUTH DIRECTED 1/2 HOUR PRIOR TO SEXUAL ACTIVITY aspirin, enteric coated (ASPIRIN, ENTERIC COATED) 81 mg EC tablet 81 mg. benazepril (LOTENSIN) 10 mg tablet Take 10 mg by mouth once daily. cyanocobalamin (VITAMIN B-12) 100 mcg tab Vitamin B 12 cyanocobalamin (vit B-12) 100 mcg tablet Active 100 MCG DAILY August 06, 2018 2:34pm 08-06-2018 [facility] ([id number]) levothyroxine (SYNTHROID) 175 mcg tablet 200 mcg. simvastatin (ZOCOR) 20 mg tablet Take 20 mg by mouth daily at bedtime. cefdinir (OMNICEF) 300 mg capsule Take 1 capsule by mouth twice daily. (Patient not taking: Reported on 04/05/2021) phenazopyridine HCl (AZO ORAL) Take 1,000 mg by mouth once daily. (Patient not taking: Reported on 01/30/2021) VENTOLIN HFA 90 mcg/actuation inhaler (Patient not taking: Reported on 04/05/2021) darifenacin ER (ENABLEX) 15 mg 24 hr tablet take 1 tablet by mouth once daily (Patient not taking: Reported on 05/26/2020) REVIEW OF SYSTEMS GENERAL:no unintentional weight loss, malaise or fevers. NEUROLOGIC: pt is alert and oriented GENITOURINARY: Positive for incontinence and enuresis The remainder of the ROS was reviewed and is negative. 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 PROSTATE SURGERY HX 2007 laser in office PROSTATE SURGERY HX STRESS TEST 06/2012 No evidence of ischemia, EF 72% SOCIAL HISTORY Social History Tobacco Use Smoking status: Every Day Packs/day: 1.00 Years: 51.00 Additional pack years: 0.00 Total pack years: 51.00 Types: Cigarettes Smokeless tobacco: Never Vaping Use Vaping Use: Never used Substance Use Topics Alcohol use: Yes Comment: rare occassion has a beer Drug use: Never PHYSICAL EXAMINATION General appearance: Well appearing, alert, in no acute distress, well-hydrated, well nourished Psych Alert and oriented to person, place and time Respiratory: no wheezing or rhonchi Genitourinary: MALE EXAM: Exam NOT Indicated 05/11/2021 office cysto- mod bilobar BPH 04/11/2021 [facility] Mild R hydro 04/05/2021 PVR 80cc Ucx >100k e coli 04/05/2020 Cysto- mild B lobar regrowth Dilation bulbar stricture 03/23/2020 ucx >100k e coli 02/18/2020 UDS c/w TOURE (high P/low Q) 12/16/2019 PSA 1.1 12/02/2019 ucx >100 e coli 11/04/2016 Botox (RAB) 02/18/2011 Button TUR Assessment and Plan: BPH/LUTS - still complaining that he leaks urine with ejaculation, has been going on for 10+ years - he caths once before bed but has nightly enuresis; (very heavy sleeper)- cathing before bed.No hematuria - prior UDS c/w obstruction but that was prior to stricture dilation - no help with antichols or Botox in the past, again discussed he may be helped by Interstim if this is a bladder issue - doing CIC 2x/d, lately he cant get cath easily so concerned about recurrent stricture. We discussed cysto/dilation as well as repeating UDS as his enuresis and leakage with ejaculation make a storage problem likely He may want referral to [facility], he will let me know [facility] NoteHNO ID: [id number] Author: RT Amos(R) Service: Radiology Author Type: [employer] Officer Type: Progress Notes Filed: 04/11/2021 8:49 AM Note Text: Radiology Service Progress Note PATIENT NAME: Edward Duffy DATE OF SERVICE: April 11, 2021 TIME: 8:48 AM PATIENT IDENTITY VERIFICATION COMPLETED USING TWO (2) IDENTIFIERS: Name and Date of confirmed by patient verbally and Name and Date of confirmed by identification band. FALL SCREENING: Has the patient had 2 falls in the last year or 1 fall with injury or currently using an Ambulatory Assistive Device (Walker, Cane, Wheelchair, Crutches, etc.)? No PATIENT GENDER DATA: Male PATIENT RELEVANT IMPLANT DATA REVIEWED: Not Applicable RADIOLOGY DEPARTMENT: Ultrasound PERIPHERAL IV DATA: Not applicable SIGNED BY: Karla Perry RDMS April 11, 2021 8:48 [id number] NoteHNO ID: [id number] Author: Chela Coffman APRN.DRUM SEALER Service: ? Author Type: Nurse Practitioner Type: Progress Notes Filed: 04/05/2021 3:30 PM Note Text: ESTABLISHED PATIENT OFFICE VISIT HISTORY OF PRESENT ILLNESS Previous note 02/13/21: Edward Duffy is a 65 year old male?with h/o BPH with LUTS and urge incontinence?who presents today for ED follow up for right-sided epididymitis with moderate pyocele and left varicocele.? ? S/p TURP a year ago and lasered x 2?several years ago per patient? ? Patient taking doxycycline x 10 days and omnicef?with improvement but still swelled on the left. We discussed scrotal support/ice/elevation/NSAIDs ? Patient wearing depends and state that he gets enough support CIC once before bed? STI work up negative? No fever or chills. No gross hematuria. No dysuria.?Denies trauma or injury to area. ? -?Finish antibiotics and follow up if symptoms do not improve? ? Previous note 03/03/21: Patient reports that he did finish both doxycycline and omnicef with improvement but still having right testicular pain and swelling. ? Wearing support Still cathing once before bed ? No fever or chills No gross hematuria No dysuria ? Will continue another course doxy and onmicef and follow up if not improved. ? Today's note: Patient reports that the testicular pain and swelling have improved but still having frequency dysuria and incontinence. He denies fever or chills. No gross hematuria. Patient reports that he has not been cathing before bed He is having nocturnal enuresis more frequently since he stopped cathing. He stopped cathing because he felt like he didn't need to and was trying to prevent infection. UA ++ trace blood, nitrites and moderate leuks - will sent urine for culture. Patient has completed 2 courses of omnicef and doxycycline. Symptoms still persist. Rx for monurol x 3 doses Renal ultrasound Cystoscopy with Dr. Ovalle We discussed continuing CIC to empty bladder, d-mannose and increasing water intake. PVR 80 cc today ? LAB RESULTS Creatinine Date Value Ref Range Status 02/09/2021 1.40 (H) 0.73 - 1.22 mg/dL Final 08/25/2010 1.0 0.8 - 1.4 MG/DL Final PSA (no units) Date Value 12/16/2019 1.09 Color (no units) Date Value 02/09/2021 Yellow 08/25/2010 YELLOW Clarity (no units) Date Value 02/09/2021 Cloudy Glucose, Urine Date Value 02/09/2021 Negative 08/25/2010 NEGATIVE MG/DL Bilirubin, Urine (no units) Date Value 02/09/2021 Negative 08/25/2010 NEGATIVE Ketones, Urine Date Value 02/09/2021 Negative 08/25/2010 NEGATIVE MG/DL Specific [place], Ur (no units) Date Value 02/09/2021 1.013 08/25/2010 1.015 Hemoglobin/Blood,Ur (no units) Date Value 02/09/2021 Small 08/25/2010 MODERATE pH, Urine (no units) Date Value 02/09/2021 7.0 08/25/2010 5.5 Protein, Urine Date Value 02/09/2021 Negative 08/25/2010 NEGATIVE MG/DL Urobilinogen Date Value 02/09/2021 0.2 EU/dL 08/25/2010 0.2 EU/DL Nitrites (no units) Date Value 02/09/2021 Positive 08/25/2010 NEGATIVE Leukest (no units) Date Value 08/25/2010 TRACE Leuk Esterase (no units) Date Value 02/09/2021 Large MEDICATIONS: tamsulosin ER (FLOMAX) 0.4 mg Take 2 capsules by mouth daily at bedtime. multivitamin tablet Take 1 tablet by mouth once daily. Ascorbic Acid (VITAMIN C) 1,000 mg tablet Take 1,000 mg by mouth once daily. docosahexaenoic acid/epa (FISH OIL ORAL) Take 1,000 mg by mouth. Pt takes 3 in the morning sildenafil (REVATIO) 20 mg tablet TAKE 2-5 TABLETS BY MOUTH DIRECTED 1/2 HOUR PRIOR TO SEXUAL ACTIVITY aspirin, enteric coated (ASPIRIN, ENTERIC COATED) 81 mg EC tablet 81 mg. benazepril (LOTENSIN) 10 mg tablet Take 10 mg by mouth once daily. cyanocobalamin (VITAMIN B-12) 100 mcg tab Vitamin B 12 cyanocobalamin (vit B-12) 100 mcg tablet Active 100 MCG DAILY August 06, 2018 2:34pm 08-06-2018 [facility] ([id number]) levothyroxine (SYNTHROID) 175 mcg tablet 200 mcg. simvastatin (ZOCOR) 20 mg tablet Take 20 mg by mouth daily at bedtime. cefdinir (OMNICEF) 300 mg capsule Take 1 capsule by mouth twice daily. oxybutynin ER (DITROPAN XL) 10 mg 24 hr tablet take 1 tablet by mouth once daily phenazopyridine HCl (AZO ORAL) Take 1,000 mg by mouth once daily. VENTOLIN HFA 90 mcg/actuation inhaler darifenacin ER (ENABLEX) 15 mg 24 hr tablet take 1 tablet by mouth once daily REVIEW OF SYSTEMS CONSTITUTIONAL: Patient reports no recent fever or weight loss CARDIOVASCULAR: No chest pain, palpitations or ankle edema. RESPIRATORY: No wheezing, frequent cough or shortness of breath GENITOURINARY: See HPI HISTORIES PAST MEDICAL HISTORY Diagnosis Date - BPH (benign prostatic hyperplasia) - HTN (hypertension) - Hyperlipidemia - Hypothyroid - Maxillary sinusitis - Nerve root disorder - Osteoarthritis - Otitis media FAMILY HISTORY Problem Rel (more content not included)...[facility] Diagnosis Onset Date Resolution Status Dysuria acute UTI (urinary tract infection) acute Hyperlipidemia LDL goal <130 acute Hypothyroidism acute Right hip pain acute UTI (urinary tract infection) acute Hypertension chronic Degenerative joint disease of right hip acute [facility] Work Phone: Evaluation note* Diagnosis Onset Date Resolution Status Degenerative joint disease of right hip acute Orthopedic aftercare acute Other acute postprocedural pain acute Orthopedic aftercare acute Other acute postprocedural pain acute Erectile disorder due to medical condition in male acute Foul smelling urine acute Urine retention acute [facility] Work Phone: Evaluation note* Diagnosis Onset Date Resolution Status Orthopedic aftercare acute Other acute postprocedural pain acute Erectile disorder due to medical condition in male acute Foul smelling urine acute Urine retention acute Foul smelling urine acute Urine retention acute [facility] Work Phone: Evaluation note* Diagnosis Onset Date Resolution Status Bilateral otitis media acute Erectile disorder due to medical condition in male acute Foul smelling urine acute Hyperlipidemia LDL goal <130 acute Hypothyroidism acute Incontinence of urine acute Maxillary sinusitis acute Hypertension [facility] Work Phone: Evaluation note* Diagnosis Onset Date Resolution Status Incontinence of urine acute Osteoarthritis cervical spine acute Incontinence of urine acute UTI (urinary tract infection) acute Foul smelling urine acute UTI (urinary tract infection) acute Erectile disorder due to medical condition in male acute Foul smelling urine acute UTI (urinary tract infection) acute Foul smelling urine acute UTI (urinary tract infection) acute [facility] Work Phone: Evaluation note* Diagnosis Urinary tract infection without hematuria, site unspecified- Primary Benign prostatic hyperplasia with incomplete bladder emptying Enuresis Unspecified urinary incontinence documented in this encounter [facility] Diagnosis Onset Date Resolution Status Bilateral otitis media acute Maxillary sinusitis acute Urine retention acute UTI (urinary tract infection) acute UTI (urinary tract infection) acute BPH (benign prostatic hyperplasia) acute Hyperlipidemia LDL goal <130 acute Hypothyroidism acute Hypertension [facility] Work Phone: Reason for referral (narrative)No reason for referral information [facility] Work Phone: Summary Purpose Family History Relationship Condition Age at Onset Recorded Date/T camila Not Specified Diabetes mellitus Unknown High blood cholesterol Unknown Cardiac disease Unknown Hypertension Unknown Cerebrovascular accident (CVA) Unknown Advance Directives Advance Directive Response Recorded Date/ Time Living Will Yes January 16, 2022 1:26pm Power of Electrical Systems Design Engineer Yes January 16 1:26pm Advance Directive Response Recorded Date/ Time Name of Medical Power of Electrical Systems Design Engineer DAUGHTER January 16, 2022 1:26pm Living Will Yes January 16, 2022 1:26pm Power of Electrical Systems Design Engineer Yes January 16 1:26pm Advance Directive Response Recorded Date/ Time Living Will Yes January 16, 2022 12:26pm Power of Electrical Systems Design Engineer Yes January 16 12:26pm Advance Directive Response Recorded Date/ Time Living Will Yes April 15, 2023 5:23pm Power of Electrical Systems Design Engineer Yes April 15 5:23pm Chief Complaint and Reason for Visit Chief Complaint Urinary tract infect ion Urinary tract infection RIGHT HIP xray Unilateral primary osteoarthritis, right hip TOTAL HIP/ DR TO FAX RX Reason for Visit Dysuria UTI (urinary tract infection) Hyperlipidemia LDL goal <130 Hypothyroidism Right hip pain UTI (urinary tract infection) Hypertension Degenerative joint disease of right hip Chief Complaint Urinary tract infect ion Urinary tract infection RIGHT HIP xray Unilateral primary osteoarthritis, right hip TOTAL HIP/ DR TO FAX RX RT TOTAL HIP W JEAN-PAUL RT TOTAL HIP W JEAN-PAUL Reason for Visit Dysuria UTI (urinary tract infection) Hyperlipidemia LDL goal <130 Hypothyroidism Right hip pain UTI (urinary tract infection) Hypertension Degenerative joint disease of right hip Chief Complaint RIGHT HIP xray Unilateral primary osteoarthritis, right hip RT TOTAL HIP W JEAN-PAUL RT TOTAL HIP W JEAN-PAUL RT TOTAL HIP W JEAN-PAUL right hip TOTAL HIP/ DR TO FAX RX right hip xray RIGHT HIP Urinary tract infection Reason for Visit Degenerative joint d isease of right hip Orthopedic aftercare Other acute postprocedural pain Orthopedic aftercare Other acute postprocedural pain Erectile disorder due to medical condition in male Foul smelling urine Urine retention Chief Complaint TOTAL HIP/ DR TO FAX RX right hip xray RIGHT HIP Urinary tract infection ceftriaxone shot Reason for Visit Orthopedic aftercare Other acute postprocedural pain Erectile disorder due to medical condition in male Foul smelling urine Urine retention Foul smelling urine Urine retention Chief Complaint Urinary tract infect ion & Medrefills Reason for Visit Bilateral otitis med ia Erectile disorder due to medical condition in male Foul smelling urine Hyperlipidemia LDL goal <130 Hypothyroidism Incontinence of urine Maxillary sinusitis Hypertension Chief Complaint Urinary tract infect ion Rocephin Injection Rocephin injection Urinary tract infection & medrefills Rocephin injection Reason for Visit Incontinence of urin e Osteoarthritis cervical spine Incontinence of urine UTI (urinary tract infection) Foul smelling urine UTI (urinary tract infection) Erectile disorder due to medical condition in male Foul smelling urine UTI (urinary tract infection) Foul smelling urine UTI (urinary tract infection) Chief Complaint Urinary tract infect ion/issues Rocephin injection medication refills/Labs Reason for Visit Bilateral otitis med ia Maxillary sinusitis Urine retention UTI (urinary tract infection) UTI (urinary tract infection) BPH (benign prostatic hyperplasia) Hyperlipidemia LDL goal <130 Hypothyroidism Hypertension Chief Complaint Admit Date Swollen ankles & toes November 18, 2024 5:29pm medication refills/labs December 28, 2024 5:27pm LABWORK December 28, 2024 11: 09pm Reason for Visit Admit Date Lower leg edema November 18, 2024 5 :29pm Unsteady gait November 18, 2024 5 :29pm Hyperlipidemia LDL goal <130 December 28, 2024 5:27pm Hypothyroidism December 28, 2024 5:2 7pm Hypertension December 28, 2024 5:2 7pm Additional Source Comments (unrecognized sect ion and content) No Status Records FoundNo Status Records FoundNo Status Records FoundNo Status Records FoundNo Status Records Found INFORMATION SOURCE (unrecogn ized section and content) DATE CREATED AUTHOR 03/04/2021 [facility] DATE CREATED AUTHOR AUTHOR'S ORGANIZ ATION 04/12/2021 [facility] DATE CREATED AUTHOR AUTHOR'S ORGANIZ ATION 12/11/2021 [facility] DATE CREATED AUTHOR AUTHOR'S ORGANIZ ATION 09/01/2024 [facility] DATE CREATED AUTHOR AUTHOR'S ORGANIZ ATION 01/09/2025 [facility] Goals (unrecognized section and content) Goals may be documented in a n alternate sectionGoals may be documented in an alternate sectionGoals may be documented in an alternate sectionGoals may be documented in an alternate sectionGoals may be documented in an alternate sectionGoals may be documented in an alternate sectionGoals may be documented in an alternate section Care Teams (unrecognized sec tion and content) Team Status: Active Member Role Status Dates Manny Golden GENETIC ENGINEER, GENETIC ENGINEER-C Family Provider Active Manny Golden NP, GENETIC ENGINEER-C Primary Care Provider Active Team Status: Inactive Member Role Status Dates Manny Golden GENETIC ENGINEER, GENETIC ENGINEER-C Primary Care Pr ovider, Attending Provider, Referring Provider Active Team Status: Inactive Member Role Status Dates Manny Golden GENETIC ENGINEER, GENETIC ENGINEER-C Primary Care Provider, Attend ing Provider Active Trench Digger Relationship Specialty Start Date End Date Manny Golden APRN.CNP [address] [facility] [address] [place] [address] PCP - General Family Medicine 07/31/19 Trench Digger Relationship Specialty Start Date End Date Manny Golden APRN.DRUM SEALER [address] [facility] [address] [place] [address] PCP - General Family Medicine 07/31/19 Team Status: Inactive Member Role Status Dates Manny Golden GENETIC ENGINEER, GENETIC ENGINEER-C Primary Care Provider Active Start: November 18, 2024 End: November 18, 2024 Manny Golden GENETIC ENGINEER, GENETIC ENGINEER-C Attending Provider Active Start: November 18, 2024 End: November 18, 2024 Manny Golden GENETIC ENGINEER, GENETIC ENGINEER-C Referring Provider Active Start: November 18, 2024 End: November 18, 2024 Team Status: Inactive Member Role Status Dates Manny Golden GENETIC ENGINEER, GENETIC ENGINEER-C Primary Care Provider Active Start: December 28, 2024 End: December 28, 2024 Manny Golden GENETIC ENGINEER, GENETIC ENGINEER-C Attending Provider Active Start: December 28, 2024 End: December 28, 2024 Manny Golden GENETIC ENGINEER, GENETIC ENGINEER-C Referring Provider Active Start: December 28, 2024 End: December 28, 2024 Source Comments (unrecognize d section and content) In the event this informatio n is protected by the Federal Confidentiality of Alcohol and Drug Abuse Patient Records regulations: The Federal rules restrict any use of the information to criminally investigate or prosecute any alcohol or drug abuse patient.[facility] the event this information is protected by the Federal Confidentiality of Alcohol and Drug Abuse Patient Records regulations: The Federal rules restrict any use of the information to criminally investigate or prosecute any alcohol or drug abuse patient.[facility] Reason for Visit (unrecogniz ed section and content) Reason Comments UTI FOR RECORDS PERTAINING TO PATIENTS WHO ARE OR HAVE BEEN ENROLLED IN A CHEMICAL DEPENDENCY/SUBSTANCEABUSE PROGRAM, SOME INFORMATION MAY BE OMITTED. This clinical summary was aggregated from multiple sources. Caution should be exercised in using it in the provision of clinical care. This summary normalizes information from multiple sources, and as a consequence, information in this document may materially change the coding, format and clinical context of patient data. In addition, data may be omitted in some cases. CLINICAL DECISIONS SHOULD BE BASED ON THE PRIMARY CLINICAL RECORDS. [facility] [employer] [facility]. provides no warranty or guarantee of the accuracy or completeness of information in this document.
== END | disposition home or self-care (01) ==
PROVIDERS: PCP Nurse Practitioner; Referring Provider Nurse Practitioner; Visit Provider Nurse Practitioner
DX: R33.9 Retention of urine, unspecified (principal)
CPT/HCPCS: 87077; 87086; 87088